=== PATIENT | female | born 2000 | race Hispanic/Latino ===

== ENCOUNTER 2023-05-24 09:36 | Emergency (ER) | payer OTHER ==
[2023-05-24] MEDS ORDERED: ACETAMINOPHEN 500 MG TAB ONE (10:13)
[2023-05-24 10:38] LABS: Specific Gravity > 1.030 (1.005-1.030); Urine Bacteria <20 /HPF (<20); Urine Bilirubin NEGATIVE (Negative); Urine Blood Negative (Negative); Urine Clarity Clear (Clear); Urine Color Light-Yellow (Yellow); Urine Glucose NEGATIVE (Negative); Urine Mucus Slight /HPF (None Seen); Urine Protein TRACE (Negative); Urine RBC <5 /HPF (None Seen); Urine Sperm Present (None Seen); Urine Urobilinogen Normal (Normal); Urine pH 5.5 (5.0-7.0)
--- NOTE | 2023-05-24 10:43 | EDPHYS ---
Physician Documentation [facility] Name: Ana Barroso Age: 22 yrs Sex: Female : 2000 Arrival Date: 05/24/2023 Time: 09:36 Bed 16 Private MD: ED Physician Steven Rosas HPI: 05/24 09:50 This 22 yrs old Female presents to ER via Ambulatory with complaints of Abdominal Pain, snw Low Back Pain, 19 weeks . 09:50 The patient presents with abdominal pain in the lower abdomen. Onset: The snw symptoms/episode began/occurred gradually. The symptoms do not radiate. Associated signs and symptoms: Pertinent negatives: nausea and vomiting, fever, vaginal bleeding, vaginal discharge. The symptoms are described as achy. Severity of pain: At its worst the pain was moderate. It is unknown whether or not the patient has had similar symptoms in the past. appt with Youth Services Librarian on Friday. AV SPECIALIST: 10:00 Verified kc6 Historical: - Allergies: 09:45 No Known Allergies; hb - Home Meds: 09:45 Metformin Oral [Active]; Aspirin Oral [Active]; Vitamin Oral [Active]; hb - PMHx: 09:45 DM; hb - PSHx: 09:45 None; hb - Immunization history:: Adult Immunizations up to date. - Social history:: Smoking status: Patient denies any tobacco usage or history of. ROS: 09:49 Constitutional: Negative for fever, chills, and weight loss, Eyes: Negative for injury, snw pain, redness, and discharge, ENT: Negative for injury, pain, and discharge, Neck: Negative for injury, pain, and swelling, Cardiovascular: Negative for chest pain, palpitations, and edema, Respiratory: Negative for shortness of breath, cough, wheezing, and pleuritic chest pain, : Negative for injury, bleeding, discharge, and swelling, MS/Extremity: Negative for injury and deformity, Skin: Negative for injury, rash, and discoloration, Neuro: Negative for headache, weakness, numbness, tingling, and seizure, Psych: Negative for depression, anxiety, suicide ideation, homicidal ideation, and hallucinations. 09:49 Abdomen/GI: Positive for abdominal pain, of the suprapubic area, right lower quadrant and left lower quadrant. 09:49 Back: Positive for pain at rest, pain with movement, mostly to left side . Exam: 09:48 Constitutional: This is a well developed, well nourished patient who is awake, alert, snw and in no acute distress. Head/Face: Normocephalic, atraumatic. Eyes: Pupils equal round and reactive to light, extra-ocular motions intact. Lids and lashes normal. Conjunctiva and sclera are non-icteric and not injected. Cornea within normal limits. Periorbital areas with no swelling, redness, or edema. ENT: Nares patent. No nasal discharge, no septal abnormalities noted. Tympanic membranes are normal and external auditory canals are clear. Oropharynx with no redness, swelling, or masses, exudates, or evidence of obstruction, uvula midline. Mucous membranes moist. Neck: Trachea midline, no thyromegaly or masses palpated, and no cervical lymphadenopathy. Supple, full range of motion without nuchal rigidity, or vertebral point tenderness. No Meningismus. Chest/axilla: Normal chest wall appearance and motion. Nontender with no deformity. No lesions are appreciated. Cardiovascular: Regular rate and rhythm with a normal S1 and S2. No gallops, murmurs, or rubs. Normal PMI, no JVD. No pulse deficits. Respiratory: Lungs have equal breath sounds bilaterally, clear to auscultation and percussion. No rales, rhonchi or wheezes noted. No increased work of breathing, no retractions or nasal flaring. Skin: Warm, dry with normal turgor. Normal color with no rashes, no lesions, and no evidence of cellulitis. MS/ Extremity: Pulses equal, no cyanosis. Neurovascular intact. Full, normal range of motion. Neuro: Awake and alert, GCS 15, oriented to person, place, time, and situation. Cranial nerves II-XII grossly intact. Motor strength 5/5 in all extremities. Sensory grossly intact. Cerebellar exam normal. Normal gait. Psych: Awake, alert, with orientation to person, place and time. Behavior, mood, and affect are within normal limits. 09:48 Abdomen/GI: Inspection: gravid appearance, is noted, Bowel sounds: normal, Palpation: mild abdominal tenderness, in the suprapubic area and left lower quadrant. 09:48 Back: CVA tenderness, is absent. Vital Signs: 10:00 BP 135 / 90; Pulse 91; Resp 18 S; Pulse Ox 98% on R/A; kc6 11:15 BP 118 / 73; Pulse 65; Resp 18 S; Pulse Ox 98% on R/A; kc6 MDM: 09:43 Patient medically screened. snw 09:51 Differential diagnosis: bowel obstruction, Pyelonephritis, urinary tract infection. snw Data reviewed: vital signs, nurses notes. 05/24 09:41 Order name: Urine W/Microscopic (UAM); Complete Time: 10:39 snw 05/24 10:41 Order name: Urine Culture snw 05/24 09:48 Order name: FHT's; Complete Time: 10:10 snw Administered Medications: 11:06 Not Given (Physician Discretion): Acetaminophen PO 1000 mg PO once kc6 11:14 Drug: Amoxicillin-Clavulanate PO 875 mg Route: PO; kc6 11:18 Follow up: Response: No adverse reaction kc6 Disposition: 12:25 I reviewed the patient's care provided by the Advanced Practice Provider and agree with jr11 the diagnosis and treatment plan. Disposition Summary: 05/24/23 10:43 Discharge Ordered Location: Home snw Condition: Stable snw Diagnosis - Unspecified infection of urinary tract in , second trimester snw Followup: snw - With: Emergency Department - When: As needed - Reason: Worsening of condition Followup: snw - With: Private Physician - When: 2 - 3 days - Reason: Recheck today's complaints, Continuance of care, Re-evaluation by your physician Discharge Instructions: - Discharge Summary Sheet snw - Second Trimester of snw - and Urinary Tract Infection snw - Hypertension During snw - Type 1 or Type 2 Diabetes Mellitus During , Self-Care snw - Managing Stress During snw Forms: - Medication Reconciliation Form snw - Thank You Letter snw - Antibiotic Education snw - Prescription Opioid Use snw - Patient Portal Instructions snw - Leadership Thank You Letter snw Prescriptions: - Augmentin 875-125 mg Oral Tablet - take 1 tablet by ORAL route every 12 hours for 10 days; 20 tablet; Refills: 0, snw Product Selection Permitted Signatures: Dispatcher [employer] Cinthya Zhao FNP-C LOAN INTERVIEWER-CsnNaima Rodriguez, RN RN Steven Rosas MD MD [email or web address] Tash Anthony, BEATRICE RN kc6
--- NOTE | 2023-05-24 10:43 | ER ---
Nurse's Notes [facility] Name: Ana Barroso Age: 22 yrs Sex: Female : 2000 Arrival Date: 05/24/2023 Time: 09:36 Bed 16 Private MD: Diagnosis: Unspecified infection of urinary tract in , second trimester Presentation: 05/24 09:44 Chief complaint: Intermittent lower abdominal pain x 2 weeks, low back pain since last hb night. Denies urinary s/s or vaginal bleeding. Coronavirus screen: At this time, the client does not indicate any symptoms associated with coronavirus-19. Ebola Screen: No symptoms or risks identified at this time. Initial Sepsis Screen: Does the patient meet any 2 criteria? No. Patient's initial sepsis screen is negative. Does the patient have a suspected source of infection? No. Patient's initial sepsis screen is negative. Risk Assessment: Do you want to hurt yourself or someone else? Patient reports no desire to harm self or others. Onset of symptoms was May 10, 2023. 09:44 Method Of Arrival: Ambulatory hb 09:44 Acuity: DELISA 3 hb [employer]SPORT[employer] DRIVER: 10:00 Verified kc6 Historical: - Allergies: 09:45 No Known Allergies; hb - Home Meds: 09:45 Metformin Oral [Active]; Aspirin Oral [Active]; Vitamin Oral [Active]; hb - PMHx: 09:45 DM; hb - PSHx: 09:45 None; hb - Immunization history:: Adult Immunizations up to date. - Social history:: Smoking status: Patient denies any tobacco usage or history of. Screenin:00 [facility] ED Fall Risk Assessment (Adult) History of falling in the last 3 months, kc6 including since admission No falls in past 3 months (0 pts) Confusion or Disorientation No (0 pts) Intoxicated or Sedated No (0 pts) Impaired Gait No (0 pts) Mobility Assist Device Used No (0 pt) Altered Elimination No (0 pt) Score/Fall Risk Level 0 - 2 = Low Risk. Abuse screen: Denies threats or abuse. Denies injuries from another. Nutritional screening: No deficits noted. Tuberculosis screening: No symptoms or risk factors identified. Assessment: 10:00 General: Appears in no apparent distress. uncomfortable, Behavior is calm, cooperative, kc6 appropriate for age. Pain: Complains of pain in umbilical area and suprapubic area. Neuro: Level of Consciousness is awake, alert, obeys commands, Oriented to person, place, time, situation, Appropriate for age. Cardiovascular: Capillary refill < 3 seconds. Respiratory: Airway is patent Trachea midline Respiratory effort is even, unlabored, Respiratory pattern is regular, symmetrical. GI: No signs and/or symptoms were reported involving the gastrointestinal system. Abdomen is round non-distended, Bowel sounds present X 4 quads. Abd is soft X 4 quads Abdomen is tender to palpation in umbilical area and suprapubic area Patient currently denies diarrhea, nausea, vomiting. : No signs and/or symptoms were reported regarding the genitourinary system. Denies vaginal bleeding. EENT: No signs and/or symptoms were reported regarding the EENT system. Derm: No signs and/or symptoms reported regarding the dermatologic system. Skin is intact, is healthy with good turgor, Skin is pink, warm \T\ dry. Musculoskeletal: No signs and/or symptoms reported regarding the musculoskeletal system. Circulation, motion, and sensation intact. Capillary refill < 3 seconds, Range of motion: intact in all extremities. 10:15 Reassessment: FHT = 140bpm. kc6 11:00 Reassessment: Patient appears in no apparent distress at this time. No changes from kc6 previously documented assessment. Patient and/or family updated on plan of care and expected duration. Pain level reassessed. Patient is alert, oriented x 3, equal unlabored respirations, skin warm/dry/pink. Vital Signs: 10:00 BP 135 / 90; Pulse 91; Resp 18 S; Pulse Ox 98% on R/A; kc6 11:15 BP 118 / 73; Pulse 65; Resp 18 S; Pulse Ox 98% on R/A; kc6 ED Course: 09:37 Patient arrived in ED. im 09:43 Cinthya Cool FNP-C is PHCP. snw 09:43 Steven Rosas MD is Attending Physician. snw 09:45 Triage completed. hb 09:48 Arm band placed on. hb 09:59 Tash Anthony, BEATRICE is Primary Nurse. kc6 09:59 Patient has correct armband on for positive identification. Bed in low position. Call mm9 light in reach. Side rails up X 1. Adult w/ patient. Pulse ox on. NIBP on. 09:59 Urine W/Microscopic (UAM) Sent. mm9 09:59 Urine collected: clean catch specimen, erma colored. mm9 11:17 No provider procedures requiring assistance completed. Patient did not have IV access kc6 during this emergency room visit. Administered Medications: 11:06 Not Given (Physician Discretion): Acetaminophen PO 1000 mg PO once kc6 11:14 Drug: Amoxicillin-Clavulanate PO 875 mg Route: PO; kc6 11:18 Follow up: Response: No adverse reaction kc6 Medication: 11:18 VIS not applicable for this client. kc6 Outcome: 10:43 Discharge ordered by . snw 11:17 Discharged to home ambulatory, with significant other. kc6 11:17 Condition: stable 11:17 Discharge instructions given to patient, Instructed on discharge instructions, follow up and referral plans. medication usage, Demonstrated understanding of instructions, follow-up care, medications, Prescriptions given X 1. 11:21 Patient left the ED. kc6 Signatures: Cinthya Cool, TWISTING FRAME FIXER-C TWISTING FRAME FIXER-Csnw Naima Liao, RN RN Tash Staton RN RN Stacy Angulo mm Nahomy Menon
[2023-05-24] MEDS ORDERED: AMOX/K CLAV 875 MG TAB ONE (11:19)
[2023-05-24 11:26] VITALS: O2SAT 98
[2023-05-24 11:27] VITALS: BP 118/73
== END 2023-05-24 11:21 | disposition home or self-care (01) ==
LOC: ER 09:36
DX: O23.42 Unspecified infection of urinary tract in pregnancy, second trimester (principal); N39.0 Urinary tract infection, site not specified; R10.9 Unspecified abdominal pain; M54.50 Low back pain, unspecified
CPT/HCPCS: 81001; 87086; 87088; 99284

== ENCOUNTER 2023-06-28 03:18 | Emergency (ER) | payer OTHER ==
--- OUTSIDE RECORDS SUMMARY | 2023-06-28 03:24 | XMS REPORT | Continuity of Care Document ---
:2000 Author Organization [facility] t Address [address] [place] [address] [place] [id number] Care Team Providers Name Role Phone Anisa Alfaro Primary Care Physician [phone] Doctor Unassigned, [place] Attending Clinician Unavailable Ultrasound, Ang-Mfm Attending Clinician Unavailable Sally Paz CNM Attending Clinician Margo Carrera MD Attending Clinician MARGO CARRERA Attending Clinician Unavailable MARGO CARRERA Attending Clinician Unavailable SALLY PAZ Attending Clinician Unavailable Anisa Alfaro Attending Clinician [phone] Dano Triana Attending Clinician MALISSA MACEDO Attending Clinician Unavailable Risk, Ddp-Ebsxv-Mh/High Attending Clinician Unavailable Malissa Martini Attending Clinician JORDI BONE Attending Clinician Unavailable Jordi Bone MD Attending Clinician [phone] ANISA NEVILLE Attending Clinician Unavailable Provider, Michael-Rmchryder Temp Attending Clinician Unavailable Visit, Ang-Rmchp Nurse Attending Clinician Unavailable Lab, Ang-Rmchryder Attending Clinician Unavailable Payers Payer Name Policy Type Policy Number Effective Date Expiration Date S livier [facility] [id number] 2023 00:00:00 MEDICAID OF [place] [id number] 2023 2023 00:00:00 00:00:00 Problems Condition Condition Condition Status Onset Resolution Last Treating Co mments Source Name Details Category Date Date Treatment Clinician Date Uterine Uterine Disease Active Univers leiomyoma, leiomyoma, 05-01 it y [place]spec[place] 00 Me dical Branch Disease Active Univers growth growth 05-01 ity of restrictio restrictio [place] 00 Medical antepartum antepartum Br anch 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 Papanicola Papanicola See ou smear ou smear scanned of cervix of cervix records 02-27-23 Pregestati Pregestati Disease Active Overview : Univers onal onal 03-14 Formattin ity of diabetes diabetes 00:00: g of this [place] as mellitus, mellitus, 00 note Medi [place] modified modified might be Bran ch White White different class B class B from the original. Failed 1 hr gtt GBS (group GBS (group Disease Active U nivers B B 03-14 ity of streptococ streptococ [place] cus[place] UTI cus) UTI 00 Medica l complicati complicati Br anch ng ng Supervisio Supervisio Disease Active U nivers n of n of 03-12 [place] high[place]risk [place] [facility] Branch Obesity in Obesity in Disease Active U nivers 03-12 ity of 00:00: [place] [id number] Medical Branch Allergies, Adverse Reactions, Alerts Allergy Allergy Status Severity Reaction(s) Onset Inactive Treating Comm ents Source Name Type Date Date Clinician NO KNOWN Drug Active Univers ALLERGIE Class ity of S [facility] [place] [facility] Social History Social Habit Start Date Stop Date Quantity Comments Source ASSERTION 2023-01-21 University of 00:00:00 [facility] [place] [facility] Gender identity Universit y of [facility] [place] [facility] Sexual orientation Univer sity of [facility] [place] [facility] Alcohol intake 2023-05-28 2023-05-28 Ex-drinker [facility] 00:00:00 00:00:00 (finding) [facility] [place] [facility] History of Social 2023-05-28 2023-05-28 Univers ity of function 00:00:00 00:00:00 [facility] [place] [facility] Tobacco use and 2023-03-12 2023-03-12 Smokeless Universit y of exposure 00:00:00 00:00:00 tobacco non-user [facility] [place] [facility] Sex Assigned At [birth year] Universit y of 00:00:00 00:00:00 [facility] [place] [facility] Smoking Status Start Date Stop Date Source Tobacco smoking consumption Univ [facility] Never smoked tobacco [facility] Medications Ordered Filled Start Stop Current Ordering Indication Dosage Frequency Signature Comments Components Source Medication Medication Date Date Medication? Clinician (SIG) Name Name proMETHazin Yes [id number] 12.5mg Take 1 Univers e 12.5 mg 8-03 tablet by ity o f tablet 00:00: mouth [place] 00 every 6 Medical (six) Branch hours as needed for Nausea and Vomiting (N/V) (Pt is ) for up to 60 doses. proMETHazin Yes [id number] 12.5mg Take 1 Univers e 12.5 mg 8-03 tablet by ity o f tablet 00:00: mouth [place] 00 every 6 Medical (six) Branch hours as needed for Nausea and Vomiting (N/V) (Pt is ) for up to 60 doses. proMETHazin Yes [id number] 12.5mg Take 1 Univers e 12.5 mg 8-03 tablet by ity o f tablet 00:00: mouth [place] 00 every 6 Medical (six) Branch hours as needed for Nausea and Vomiting (N/V) (Pt is ) for up to 60 doses. proMETHazin Yes [id number] 12.5mg Take 1 Univers e 12.5 mg 8-03 tablet by ity o f tablet 00:00: mouth [place] 00 every 6 Medical (six) Branch hours as needed for Nausea and Vomiting (N/V) (Pt is ) for up to 60 doses. proMETHazin 2022- Yes [id number] 12.5mg Take 1 Univers e 12.5 mg 8-03 tablet by ity o f tablet 00:00: mouth [place] 00 every 6 Medical (six) Branch hours as needed for Nausea and Vomiting (N/V) (Pt is ) for up to 60 doses. proMETHazin 2023-0 Yes [id number] 12.5mg Take 1 Univers e 12.5 mg 8-03 tablet by ity o f tablet 00:00: mouth [place] 00 every 6 Medical (six) Branch hours as needed for Nausea and Vomiting (N/V) (Pt is ) for up to 60 doses. proMETHazin 2023-0 Yes [id number] 12.5mg Take 1 Univers e 12.5 mg 8-03 tablet by ity o f tablet 00:00: mouth [place] 00 every 6 Medical (six) Branch hours as needed for Nausea and Vomiting (N/V) (Pt is ) for up to 60 doses. proMETHazin 2023-0 Yes [id number] 12.5mg Take 1 Univers e 12.5 mg 8-03 tablet by ity o f tablet 00:00: mouth [place] 00 every 6 Medical (six) Branch hours as needed for Nausea and Vomiting (N/V) (Pt is ) for up to 60 doses. proMETHazin 2023-0 Yes [id number] 12.5mg Take 1 Univers e 12.5 mg 8-03 tablet by ity o f tablet 00:00: mouth [place] 00 every 6 Medical (six) Branch hours as needed for Nausea and Vomiting (N/V) (Pt is ) for up to 60 doses. proMETHazin 2023-0 Yes [id number] 12.5mg Take 1 Univers e 12.5 mg 8-03 tablet by ity o f tablet 00:00: mouth [place] 00 every 6 Medical (six) Branch hours as needed for Nausea and Vomiting (N/V) (Pt is ) for up to 60 doses. proMETHazin 2023-0 Yes [id number] 12.5mg Take 1 Univers e 12.5 mg 8-03 tablet by ity o f tablet 00:00: mouth [place] 00 every 6 Medical (six) Branch hours as needed for Nausea and Vomiting (N/V) (Pt is ) for up to 60 doses. proMETHazin 2023-0 Yes [id number] 12.5mg Take 1 Univers e 12.5 mg 8-03 tablet by ity o f tablet 00:00: mouth [place] 00 every 6 Medical (six) Branch hours as needed for Nausea and Vomiting (N/V) (Pt is ) for up to 60 doses. aspirin 81 2023- Yes [id number] 81mg Take 1 Univers mg EC 05-08 tablet by ity of tablet 00:00: 05:59 mouth [place] 00 :00 daily for Medical 150 days. Branch aspirin 81 2023- Yes [id number] 81mg Take 1 Univers mg EC 05-08 tablet by ity of tablet 00:00: 05:59 mouth [place] 00 :00 daily for Medical 150 days. Branch aspirin 81 2023- Yes [id number] 81mg Take 1 Univers mg EC 05-08 tablet by ity of tablet 00:00: 05:59 mouth [place] 00 :00 daily for Medical 150 days. Branch aspirin 81 2023- Yes [id number] 81mg Take 1 Univers mg EC 05-08 tablet by ity of tablet 00:00: 05:59 mouth [place] 00 :00 daily for Medical 150 days. Branch aspirin 81 2023- Yes [id number] 81mg Take 1 Univers mg EC 05-08 tablet by ity of tablet 00:00: 05:59 mouth [place] 00 :00 daily for Medical 150 days. Branch aspirin 81 2023- Yes [id number] 81mg Take 1 Univers mg EC 05-08 tablet by ity of tablet 00:00: 05:59 mouth [place] 00 :00 daily for Medical 150 days. Branch aspirin 81 2023- Yes [id number] 81mg Take 1 Univers mg EC 05-08 tablet by ity of tablet 00:00: 05:59 mouth [place] 00 :00 daily for Medical 150 days. Branch aspirin 81 2023- Yes [id number] 81mg Take 1 Univers mg EC 05-08 tablet by ity of tablet 00:00: 05:59 mouth [place] 00 :00 daily for Medical 150 days. Branch aspirin 81 2023- Yes [id number] 81mg Take 1 Univers mg EC 05-08 tablet by ity of tablet 00:00: 05:59 mouth [place] 00 :00 daily for Medical 150 days. Branch aspirin 81 2023- Yes [id number] 81mg Take 1 Univers mg EC 05-08 tablet by ity of tablet 00:00: 05:59 mouth [place] 00 :00 daily for Medical 150 days. Branch aspirin 81 2023- Yes [id number] 81mg Take 1 Univers mg EC 05-08 tablet by ity of tablet 00:00: 05:59 mouth [place] 00 :00 daily for Medical 150 days. Branch aspirin 81 2023- Yes [id number] 81mg Take 1 Univers mg EC 05-08 tablet by ity of tablet 00:00: 05:59 mouth [place] 00 :00 daily for Medical 150 days. Branch metFORMIN 2022- Yes [id number] 500mg Take 1 Univers 500 mg 7-13 10-12 tablet by ity of tablet 00:00: 04:59 [place] :00 evening Medical meal for Branch 90 days. metFORMIN 2022- Yes [id number] 500mg Take 1 Univers 500 mg 7-13 10-12 tablet by ity of tablet 00:00: 04:59 [place] :00 evening Medical meal for Branch 90 days. metFORMIN 2022- Yes [id number] 500mg Take 1 Univers 500 mg 7-13 10-12 tablet by ity of tablet 00:00: 04:59 [place] :00 evening Medical meal for Branch 90 days. metFORMIN 2022- Yes [id number] 500mg Take 1 Univers 500 mg 7-13 10-12 tablet by ity of tablet 00:00: 04:59 [place] :00 evening Medical meal for Branch 90 days. metFORMIN 2022- Yes [id number] 500mg Take 1 Univers 500 mg 7-13 10-12 tablet by ity of tablet 00:00: 04:59 [place] :00 evening Medical meal for Branch 90 days. metFORMIN 2022- Yes [id number] 500mg Take 1 Univers 500 mg 7-13 10-12 tablet by ity of tablet 00:00: 04:59 [place] :00 evening Medical meal for Branch 90 days. metFORMIN 2022- Yes [id number] 500mg Take 1 Univers 500 mg 7-13 10-12 tablet by ity of tablet 00:00: 04:59 [place] 00 :00 evening Medical meal for Branch 90 days. metFORMIN 2022- Yes [id number] 500mg Take 1 Univers 500 mg 7-13 10-12 tablet by ity of tablet 00:00: 04:59 [place] :00 evening Medical meal for Branch 90 days. metFORMIN 2022- Yes [id number] 500mg Take 1 Univers 500 mg 7-13 10-12 tablet by ity of tablet 00:00: 04:59 [place] :00 evening Medical meal for Branch 90 days. metFORMIN 2022- Yes [id number] 500mg Take 1 Univers 500 mg 7-13 10-12 tablet by ity of tablet 00:00: 04:59 [place] :00 evening Medical meal for Branch 90 days. metFORMIN 2022- Yes [id number] 500mg Take 1 Univers 500 mg 7-13 10-12 tablet by ity of tablet 00:00: 04:59 [place] :00 evening Medical meal for Branch 90 days. metFORMIN 2022- Yes [id number] 500mg Take 1 Univers 500 mg 7-13 10-12 tablet by ity of tablet 00:00: 04:59 [place] :00 evening Medical meal for Branch 90 days. metFORMIN 2022- Yes [id number] 500mg Take 1 Univers 500 mg 7-13 10-12 tablet by ity of tablet 00:00: 04:59 [place] 00 :00 evening Medical meal for Branch 90 days. metFORMIN 2022- Yes [id number] 500mg Take 1 Univers 500 mg 7-13 10-12 tablet by ity of tablet 00:00: 04:59 [place] :00 evening Medical meal for Branch 90 days. metFORMIN 2022- Yes [id number] 500mg Take 1 Univers 500 mg 7-13 10-12 tablet by ity of tablet 00:00: 04:59 [place] 00 :00 evening Medical meal for Branch 90 days. metFORMIN 2022- Yes [id number] 500mg Take 1 Univers 500 mg 7-13 10-12 tablet by ity of tablet 00:00: 04:59 [place] 00 :00 evening Medical meal for Branch 90 days. metFORMIN 2022-0 2022- Yes [id number] 500mg Take 1 Univers 500 mg 7-13 10-12 tablet by ity of tablet 00:00: 04:59 [place] 00 :00 evening Medical meal for Branch 90 days. metFORMIN 2022-0 2022- Yes [id number] 500mg Take 1 Univers 500 mg 7-13 10-12 tablet by ity of tablet 00:00: 04:59 [place] 00 :00 evening Medical meal for Branch 90 days. ampicillin 2022-0 2022- Yes [id number] 500mg Take 1 Univers 500 mg 7-12 07-23 capsule by ity of capsule 00:00: 04:59 mouth 4 [place] 00 :00 ([facility]) Medical times Branch daily for 10 days. ampicillin 2022-0 2022- Yes [id number] 500mg Take 1 Univers 500 mg 7-12 07-23 capsule by ity of capsule 00:00: 04:59 mouth 4 [place] 00 :00 ([facility]) Medical times Branch daily for 10 days. ampicillin 0 2022- Yes [id number] 500mg Take 1 Univers 500 mg 7-12 07-23 capsule by ity of capsule 00:00: 04:59 mouth 4 [place] 00 :00 ([facility]) Medical times Branch daily for 10 days. ampicillin 2022-0 2022- Yes [id number] 500mg Take 1 Univers 500 mg 7-12 07-23 capsule by ity of capsule 00:00: 04:59 mouth 4 [place] 00 :00 ([facility]) Medical times Branch daily for 10 days. ampicillin 2022-0 2022- Yes [id number] 500mg Take 1 Univers 500 mg 7-12 07-23 capsule by ity of capsule 00:00: 04:59 mouth 4 [place] 00 :00 ([facility]) Medical times Branch daily for 10 days. ampicillin 2022-0 2022- Yes [id number] 500mg Take 1 Univers 500 mg 7-12 07-23 capsule by ity of capsule 00:00: 04:59 mouth 4 [place] 00 :00 ([facility]) Medical times Branch daily for 10 days. PNV 67-iron 2022-0 Yes [id number] 1{capsu Take 1 Univers ps-folate 6-26 le} capsule by ity of no.1-dha 00:00: mouth [place] (VITAFOL 00 daily. Medical ULTRA) 29 Branch mg iron- 1 mg-200 mg Cap PNV 67-iron 2023-0 Yes [id number] 1{capsu Take 1 Univers ps-folate 6-26 le} capsule by ity of no.1-dha 00:00: mouth [place] (VITAFOL 00 daily. Medical ULTRA) 29 Branch mg iron- 1 mg-200 mg Cap PNV 67-iron 2023-0 Yes [id number] 1{capsu Take 1 Univers ps-folate 6-26 le} capsule by ity of no.1-dha 00:00: mouth [place] (VITAFOL 00 daily. Medical ULTRA) 29 Branch mg iron- 1 mg-200 mg Cap PNV 67-iron 2023-0 Yes [id number] 1{capsu Take 1 Univers ps-folate 6-26 le} capsule by ity of no.1-dha 00:00: mouth [place] (VITAFOL 00 daily. Medical ULTRA) 29 Branch mg iron- 1 mg-200 mg Cap PNV 67-iron 2023-0 Yes [id number] 1{capsu Take 1 Univers ps-folate 6-26 le} capsule by ity of no.1-dha 00:00: mouth [place] (VITAFOL 00 daily. Medical ULTRA) 29 Branch mg iron- 1 mg-200 mg Cap PNV 67-iron 2023-0 Yes [id number] 1{capsu Take 1 Univers ps-folate 6-26 le} capsule by ity of no.1-dha 00:00: mouth [place] (VITAFOL 00 daily. Medical ULTRA) 29 Branch mg iron- 1 mg-200 mg Cap PNV 67-iron 2023-0 Yes [id number] 1{capsu Take 1 Univers ps-folate 6-26 le} capsule by ity of no.1-dha 00:00: mouth [place] (VITAFOL 00 daily. Medical ULTRA) 29 Branch mg iron- 1 mg-200 mg Cap PNV 67-iron 2023-0 Yes [id number] 1{capsu Take 1 Univers ps-folate 6-26 le} capsule by ity of no.1-dha 00:00: mouth [place] (VITAFOL 00 daily. Medical ULTRA) 29 Branch mg iron- 1 mg-200 mg Cap PNV 67-iron 2023-0 Yes [id number] 1{capsu Take 1 Univers ps-folate 6-26 le} capsule by ity of no.1-dha 00:00: mouth [place] (VITAFOL 00 daily. Medical ULTRA) 29 Branch mg iron- 1 mg-200 mg Cap PNV 67-iron 2023-0 Yes [id number] 1{capsu Take 1 Univers ps-folate 6-26 le} capsule by ity of no.1-dha 00:00: mouth [place] (VITAFOL 00 daily. Medical ULTRA) 29 Branch mg iron- 1 mg-200 mg Cap PNV 67-iron 2023-0 Yes [id number] 1{capsu Take 1 Univers ps-folate 6-26 le} capsule by ity of no.1-dha 00:00: mouth [place] (VITAFOL 00 daily. Medical ULTRA) 29 Branch mg iron- 1 mg-200 mg Cap PNV 67-iron 2023-0 Yes [id number] 1{capsu Take 1 Univers ps-folate 6-26 le} capsule by ity of no.1-dha 00:00: mouth [place] (VITAFOL 00 daily. Medical ULTRA) 29 Branch mg iron- 1 mg-200 mg Cap PNV 67-iron 2023-0 Yes [id number] 1{capsu Take 1 Univers ps-folate 6-26 le} capsule by ity of no.1-dha 00:00: mouth [place] (VITAFOL 00 daily. Medical ULTRA) 29 Branch mg iron- 1 mg-200 mg Cap PNV 67-iron 2023-0 Yes [id number] 1{capsu Take 1 Univers ps-folate 6-26 le} capsule by ity of no.1-dha 00:00: mouth [place] (VITAFOL 00 daily. Medical ULTRA) 29 Branch mg iron- 1 mg-200 mg Cap PNV 67-iron 2023-0 Yes [id number] 1{capsu Take 1 Univers ps-folate 6-26 le} capsule by ity of no.1-dha 00:00: mouth [place] (VITAFOL 00 daily. Medical ULTRA) 29 Branch mg iron- 1 mg-200 mg Cap PNV 67-iron 2023-0 Yes [id number] 1{capsu Take 1 Univers ps-folate 6-26 le} capsule by ity of no.1-dha 00:00: mouth [place] (VITAFOL 00 daily. Medical ULTRA) 29 Branch mg iron- 1 mg-200 mg Cap PNV 67-iron 2023-0 Yes [id number] 1{capsu Take 1 Univers ps-folate 6-26 le} capsule by ity of no.1-dha 00:00: mouth [place] (VITAFOL 00 daily. Medical ULTRA) 29 Branch mg iron- 1 mg-200 mg Cap PNV 67-iron 2023-0 Yes [id number] 1{capsu Take 1 Univers ps-folate 6-26 le} capsule by ity of no.1-dha 00:00: mouth [place] (VITAFOL 00 daily. Medical ULTRA) 29 Branch mg iron- 1 mg-200 mg Cap PNV 67-iron 2023-0 Yes [id number] 1{capsu Take 1 Univers ps-folate 6-26 le} capsule by ity of no.1-dha 00:00: mouth [place] (VITAFOL 00 daily. Medical ULTRA) 29 Branch mg iron- 1 mg-200 mg Cap PNV 67-iron 2023-0 Yes [id number] 1{capsu Take 1 Univers ps-folate 6-26 le} capsule by ity of no.1-dha 00:00: mouth [place] (VITAFOL 00 daily. Medical ULTRA) 29 Branch mg iron- 1 mg-200 mg Cap PNV 67-iron 2023-0 Yes [id number] 1{capsu Take 1 Univers ps-folate 6-26 le} capsule by ity of no.1-dha 00:00: mouth [place] (VITAFOL 00 daily. Medical ULTRA) 29 Branch mg iron- 1 mg-200 mg Cap PNV 67-iron 2023-0 Yes [id number] 1{capsu Take 1 Univers ps-folate 6-26 le} capsule by ity of no.1-dha 00:00: mouth [place] (VITAFOL 00 daily. Medical ULTRA) 29 Branch mg iron- 1 mg-200 mg Cap PNV 67-iron 2023-0 Yes [id number] 1{capsu Take 1 Univers ps-folate 6-26 le} capsule by ity of no.1-dha 00:00: mouth [place] (VITAFOL 00 daily. Medical ULTRA) 29 Branch mg iron- 1 mg-200 mg Cap PNV 67-iron 2023-0 Yes [id number] 1{capsu Take 1 Univers ps-folate 6-26 le} capsule by ity of no.1-dha 00:00: mouth [place] (VITAFOL 00 daily. Medical ULTRA) 29 Branch mg iron- 1 mg-200 mg Cap PNV 67-iron 0 Yes [id number] 1{capsu Take 1 Univers ps-folate 03-31 le} capsule by ity of no.1-dha 00:00: mouth [place] (VITAFOL daily. Medical ULTRA) 29 Branch mg iron- 1 mg-200 mg Cap lancets 0 Yes [id number] Check Unive rs (FREESTYLE 6-09 glucose 4x ity of LANCETS) 28 00:00: daily [facility] Medical Branch Blood-Gluco 0 Yes [id number] Check U nivers se Meter 6-09 blood ity of (FREESTYLE 00:00: glucose 4x [place] LITE METER) 00 daily Medical Kit Branch blood sugar Yes [id number] Check U nivers diagnostic 6-09 blood ity of (FREESTYLE 00:00: glucose 4x [place] LITE 00 daily Medical STRIPS) Branch strip lancets Yes [id number] Check Unive rs (FREESTYLE 6-09 glucose 4x ity of LANCETS) 28 00:00: daily [facility] Medical Branch Blood-Gluco 0 Yes [id number] Check U nivers se Meter 6-09 blood ity of (FREESTYLE 00:00: glucose 4x [place] LITE METER) 00 daily Medical Kit Branch blood sugar 0 Yes [id number] Check U nivers diagnostic 6-09 blood ity of (FREESTYLE 00:00: glucose 4x [place] LITE 00 daily Medical STRIPS) Branch strip lancets Yes [id number] Check Unive rs (FREESTYLE 6-09 glucose 4x ity of LANCETS) 28 00:00: daily [facility] Medical Branch Blood-Gluco Yes [id number] Check U nivers se Meter 6-09 blood ity of (FREESTYLE 00:00: glucose 4x [place] LITE METER) 00 daily Medical Kit Branch blood sugar Yes [id number] Check U nivers diagnostic 6-09 blood ity of (FREESTYLE 00:00: glucose 4x [place] LITE 00 daily Medical STRIPS) Branch strip lancets Yes [id number] Check Unive rs (FREESTYLE 6-09 glucose 4x ity of LANCETS) 28 00:00: daily [facility] Medical Branch Blood-Gluco 2022-0 Yes [id number] Check U nivers se Meter 6-09 blood ity of (FREESTYLE 00:00: glucose 4x [place] LITE METER) 00 daily Medical Kit Branch blood sugar 0 Yes [id number] Check U nivers diagnostic 6-09 blood ity of (FREESTYLE 00:00: glucose 4x [place] LITE 00 daily Medical STRIPS) Branch strip lancets 0 Yes [id number] Check Unive rs (FREESTYLE 6-09 glucose 4x ity of LANCETS) 28 00:00: daily [facility] Medical Branch Blood-Gluco 0 Yes [id number] Check U nivers se Meter 6-09 blood ity of (FREESTYLE 00:00: glucose 4x [place] LITE METER) 00 daily Medical Kit Branch blood sugar 0 Yes [id number] Check U nivers diagnostic 6-09 blood ity of (FREESTYLE 00:00: glucose 4x [place] LITE 00 daily Medical STRIPS) Branch strip lancets 0 Yes [id number] Check Unive rs (FREESTYLE 6-09 glucose 4x ity of LANCETS) 28 00:00: daily [facility] Medical Branch Blood-Gluco 2022-0 Yes [id number] Check U nivers se Meter 6-09 blood ity of (FREESTYLE 00:00: glucose 4x [place] LITE METER) 00 daily Medical Kit Branch blood sugar 2022-0 Yes [id number] Check U nivers diagnostic 6-09 blood ity of (FREESTYLE 00:00: glucose 4x [place] LITE 00 daily Medical STRIPS) Branch strip lancets 2022-0 Yes [id number] Check Unive rs (FREESTYLE 6-09 glucose 4x ity of LANCETS) 28 00:00: daily [facility] Medical Branch Blood-Gluco 2022-0 Yes [id number] Check U nivers se Meter 6-09 blood ity of (FREESTYLE 00:00: glucose 4x [place] LITE METER) 00 daily Medical Kit Branch blood sugar 2022-0 Yes [id number] Check U nivers diagnostic 6-09 blood ity of (FREESTYLE 00:00: glucose 4x [place] LITE 00 daily Medical STRIPS) Branch strip lancets 2022-0 Yes [id number] Check Unive rs (FREESTYLE 6-09 glucose 4x ity of LANCETS) 28 00:00: daily [facility] Medical Branch Blood-Gluco 2022-0 Yes [id number] Check U nivers se Meter 6-09 blood ity of (FREESTYLE 00:00: glucose 4x [place] LITE METER) 00 daily Medical Kit Branch blood sugar 2022-0 Yes [id number] Check U nivers diagnostic 6-09 blood ity of (FREESTYLE 00:00: glucose 4x [place] LITE 00 daily Medical STRIPS) Branch strip lancets 0 Yes [id number] Check Unive rs (FREESTYLE 6-09 glucose 4x ity of LANCETS) 28 00:00: daily [facility] Medical Branch Blood-Gluco 2022-0 Yes [id number] Check U nivers se Meter 6-09 blood ity of (FREESTYLE 00:00: glucose 4x [place] LITE METER) 00 daily Medical Kit Branch blood sugar 2022-0 Yes [id number] Check U nivers diagnostic 6-09 blood ity of (FREESTYLE 00:00: glucose 4x [place] LITE 00 daily Medical STRIPS) Branch strip lancets 2022-0 Yes [id number] Check Unive rs (FREESTYLE 6-09 glucose 4x ity of LANCETS) 28 00:00: daily [facility] Medical Branch Blood-Gluco 2022-0 Yes [id number] Check U nivers se Meter 6-09 blood ity of (FREESTYLE 00:00: glucose 4x [place] LITE METER) 00 daily Medical Kit Branch blood sugar 2022-0 Yes [id number] Check U nivers diagnostic 6-09 blood ity of (FREESTYLE 00:00: glucose 4x [place] LITE 00 daily Medical STRIPS) Branch strip lancets 2022-0 Yes [id number] Check Unive rs (FREESTYLE 6-09 glucose 4x ity of LANCETS) 28 00:00: daily [facility] Medical Branch Blood-Gluco 2022-0 Yes [id number] Check U nivers se Meter 6-09 blood ity of (FREESTYLE 00:00: glucose 4x [place] LITE METER) 00 daily Medical Kit Branch blood sugar Yes [id number] Check U nivers diagnostic 6-09 blood ity of (FREESTYLE 00:00: glucose 4x [place] LITE 00 daily Medical STRIPS) Branch strip lancets Yes [id number] Check Unive rs (FREESTYLE 6-09 glucose 4x ity of LANCETS) 28 00:00: daily [facility] Medical Branch Blood-Gluco 0 Yes [id number] Check U nivers se Meter 6-09 blood ity of (FREESTYLE 00:00: glucose 4x [place] LITE METER) 00 daily Medical Kit Branch blood sugar Yes [id number] Check U nivers diagnostic 6-09 blood ity of (FREESTYLE 00:00: glucose 4x [place] LITE 00 daily Medical STRIPS) Branch strip lancets Yes [id number] Check Unive rs (FREESTYLE 6-09 glucose 4x ity of LANCETS) 28 00:00: daily [facility] Medical Branch Blood-Gluco 0 Yes [id number] Check U nivers se Meter 6-09 blood ity of (FREESTYLE 00:00: glucose 4x [place] LITE METER) 00 daily Medical Kit Branch blood sugar Yes [id number] Check U nivers diagnostic 6-09 blood ity of (FREESTYLE 00:00: glucose 4x [place] LITE 00 daily Medical STRIPS) Branch strip lancets Yes [id number] Check Unive rs (FREESTYLE 6-09 glucose 4x ity of LANCETS) 28 00:00: daily [facility] [facility] Blood-Gluco 0 Yes [id number] Check U nivers se Meter 6-09 blood ity of (FREESTYLE 00:00: glucose 4x [place] LITE METER) 00 daily Medical Kit Branch blood sugar 0 Yes [id number] Check U nivers diagnostic 6-09 blood ity of (FREESTYLE 00:00: glucose 4x [place] LITE 00 daily Medical STRIPS) Branch strip lancets 0 Yes [id number] Check Unive rs (FREESTYLE 6-09 glucose 4x ity of LANCETS) 28 00:00: daily [facility] Blood-Gluco 0 Yes [id number] Check U nivers se Meter 6-09 blood ity of (FREESTYLE 00:00: glucose 4x [place] LITE METER) 00 daily Medical Kit Branch blood sugar 0 Yes [id number] Check U nivers diagnostic 6-09 blood ity of (FREESTYLE 00:00: glucose 4x [place] LITE 00 daily Medical STRIPS) Branch strip lancets 0 Yes [id number] Check Unive rs (FREESTYLE 6-09 glucose 4x ity of LANCETS) 28 00:00: daily [facility] Blood-Gluco 0 Yes [id number] Check U nivers se Meter 6-09 blood ity of (FREESTYLE 00:00: glucose 4x [place] LITE METER) 00 daily Medical Kit Branch blood sugar 0 Yes [id number] Check U nivers diagnostic 6-09 blood ity of (FREESTYLE 00:00: glucose 4x [place] LITE daily Medical STRIPS) Branch strip lancets 0 Yes [id number] Check Unive rs (FREESTYLE 6-09 glucose 4x ity of LANCETS) 28 00:00: daily [facility] Blood-Gluco 0 Yes [id number] Check U nivers se Meter 6-09 blood ity of (FREESTYLE 00:00: glucose 4x [place] LITE METER) 00 daily Medical Kit Branch blood sugar 0 Yes [id number] Check U nivers diagnostic 6-09 blood ity of (FREESTYLE 00:00: glucose 4x [place] LITE 00 daily Medical STRIPS) Branch strip lancets 0 Yes [id number] Check Unive rs (FREESTYLE 6-09 glucose 4x ity of LANCETS) 28 00:00: daily [facility] Blood-Gluco 0 Yes [id number] Check U nivers se Meter 6-09 blood ity of (FREESTYLE 00:00: glucose 4x [place] LITE METER) 00 daily Medical Kit Branch blood sugar 0 Yes [id number] Check U nivers diagnostic 6-09 blood ity of (FREESTYLE 00:00: glucose 4x [place] LITE 00 daily Medical STRIPS) Branch strip lancets 0 Yes [id number] Check Unive rs (FREESTYLE 6-09 glucose 4x ity of LANCETS) 28 00:00: daily [facility] Blood-Gluco 0 Yes [id number] Check U nivers se Meter 6-09 blood ity of (FREESTYLE 00:00: glucose 4x [place] LITE METER) 00 daily Medical Kit Branch blood sugar 0 Yes [id number] Check U nivers diagnostic 6-09 blood ity of (FREESTYLE 00:00: glucose 4x [place] LITE 00 daily Medical STRIPS) Branch strip lancets Yes [id number] Check Unive rs (FREESTYLE 6-09 glucose 4x ity of LANCETS) 28 00:00: daily [facility] Blood-Gluco 0 Yes [id number] Check U nivers se Meter 6-09 blood ity of (FREESTYLE 00:00: glucose 4x [place] LITE METER) 00 daily Medical Kit Branch blood sugar 0 Yes [id number] Check U nivers diagnostic 6-09 blood ity of (FREESTYLE 00:00: glucose 4x [place] LITE 00 daily Medical STRIPS) Branch strip lancets 0 Yes [id number] Check Unive rs (FREESTYLE 6-09 glucose 4x ity of LANCETS) 28 00:00: daily [facility] Blood-Gluco 0 Yes [id number] Check U nivers se Meter 6-09 blood ity of (FREESTYLE 00:00: glucose 4x [place] LITE METER) 00 daily Medical Kit Branch blood sugar 0 Yes [id number] Check U nivers diagnostic 6-09 blood ity of (FREESTYLE 00:00: glucose 4x [place] LITE 00 daily Medical STRIPS) Branch strip lancets 0 Yes [id number] Check Unive rs (FREESTYLE 6-09 glucose 4x ity of LANCETS) 28 00:00: daily [facility] Blood-Gluco 0 Yes [id number] Check U nivers se Meter 6-09 blood ity of (FREESTYLE 00:00: glucose 4x [place] LITE METER) 00 daily Medical Kit Branch blood sugar Yes [id number] Check U nivers diagnostic 6-09 blood ity of (FREESTYLE 00:00: glucose 4x [place] LITE 00 daily Medical STRIPS) Branch strip lancets Yes [id number] Check Unive rs (FREESTYLE 6-09 glucose 4x ity of LANCETS) 28 00:00: daily [facility] Blood-Gluco Yes [id number] Check U nivers se Meter 6-09 blood ity of (FREESTYLE 00:00: glucose 4x [place] LITE METER) 00 daily Medical Kit Branch blood sugar Yes [id number] Check U nivers diagnostic 6-09 blood ity of (FREESTYLE 00:00: glucose 4x [place] LITE 00 daily Medical STRIPS) Branch strip lancets Yes [id number] Check Unive rs (FREESTYLE 6-09 glucose 4x ity of LANCETS) 28 00:00: daily [facility] Blood-Gluco Yes [id number] Check U nivers se Meter 6-09 blood ity of (FREESTYLE 00:00: glucose 4x [place] LITE METER) 00 daily Medical Kit Branch blood sugar Yes [id number] Check U nivers diagnostic 6-09 blood ity of (FREESTYLE 00:00: glucose 4x [place] LITE 00 daily Medical STRIPS) Branch strip lancets Yes [id number] Check Unive rs (FREESTYLE 6-09 glucose 4x ity of LANCETS) 28 00:00: daily [facility] Blood-Gluco 0 Yes [id number] Check U nivers se Meter 6-09 blood ity of (FREESTYLE 00:00: glucose 4x [place] LITE METER) 00 daily Medical Kit Branch blood sugar Yes [id number] Check U nivers diagnostic 6-09 blood ity of (FREESTYLE 00:00: glucose 4x [place] LITE 00 daily Medical STRIPS) Branch strip lancets Yes [id number] Check Unive rs (FREESTYLE 6-09 glucose 4x ity of LANCETS) 28 00:00: daily [facility] Blood-Gluco 2022-0 Yes [id number] Check U nivers se Meter 6-09 blood ity of (FREESTYLE 00:00: glucose 4x [place] LITE METER) 00 daily Medical Kit Branch blood sugar 2022-0 Yes [id number] Check U nivers diagnostic 6-09 blood ity of (FREESTYLE 00:00: glucose 4x [place] LITE 00 daily Medical STRIPS) Branch strip lancets 2022-0 Yes [id number] Check Unive rs (FREESTYLE 6-09 glucose 4x ity of LANCETS) 28 00:00: daily [facility] Blood-Gluco 2022-0 Yes [id number] Check U nivers se Meter 6-09 blood ity of (FREESTYLE 00:00: glucose 4x [place] LITE METER) 00 daily Medical Kit Branch blood sugar 2022-0 Yes [id number] Check U nivers diagnostic 6-09 blood ity of (FREESTYLE 00:00: glucose 4x [place] LITE 00 daily Medical STRIPS) Branch strip lancets 2022-0 Yes [id number] Check Unive rs (FREESTYLE 6-09 glucose 4x ity of LANCETS) 28 00:00: daily [facility] Blood-Gluco 2022-0 Yes [id number] Check U nivers se Meter 6-09 blood ity of (FREESTYLE 00:00: glucose 4x [place] LITE METER) 00 daily Medical Kit Branch blood sugar 2022-0 Yes [id number] Check U nivers diagnostic 6-09 blood ity of (FREESTYLE 00:00: glucose 4x [place] LITE 00 daily Medical STRIPS) Branch strip lancets 2022-0 Yes [id number] Check Unive rs (FREESTYLE 6-09 glucose 4x ity of LANCETS) 28 00:00: daily [facility] Blood-Gluco 2022-0 Yes [id number] Check U nivers se Meter 6-09 blood ity of (FREESTYLE 00:00: glucose 4x [place] LITE METER) 00 daily Medical Kit Branch blood sugar 2022-0 Yes [id number] Check U nivers diagnostic 6-09 blood ity of (FREESTYLE 00:00: glucose 4x [place] LITE 00 daily Medical STRIPS) Branch strip lancets 2022-0 Yes [id number] Check Unive rs (FREESTYLE 6-09 glucose 4x ity of LANCETS) 28 00:00: daily [facility] Blood-Gluco 2022-0 Yes [id number] Check U nivers se Meter 6-09 blood ity of (FREESTYLE 00:00: glucose 4x [place] LITE METER) 00 daily Medical Kit Branch blood sugar 0 Yes [id number] Check U nivers diagnostic 6-09 blood ity of (FREESTYLE 00:00: glucose 4x [place] LITE 00 daily Medical STRIPS) Branch strip lancets 0 Yes [id number] Check Unive rs (FREESTYLE 6-09 glucose 4x ity of LANCETS) 28 00:00: daily [facility] Blood-Gluco 2022-0 Yes [id number] Check U nivers se Meter 6-09 blood ity of (FREESTYLE 00:00: glucose 4x [place] LITE METER) 00 daily Medical Kit Branch blood sugar 0 Yes [id number] Check U nivers diagnostic 6-09 blood ity of (FREESTYLE 00:00: glucose 4x [place] LITE 00 daily Medical STRIPS) Branch strip lancets 0 Yes [id number] Check Unive rs (FREESTYLE 6-09 glucose 4x ity of LANCETS) 28 00:00: daily [facility] Blood-Gluco 2022-0 Yes [id number] Check U nivers se Meter 6-09 blood ity of (FREESTYLE 00:00: glucose 4x [place] LITE METER) 00 daily Medical Kit Branch blood sugar 2022-0 Yes [id number] Check U nivers diagnostic 6-09 blood ity of (FREESTYLE 00:00: glucose 4x [place] LITE 00 daily Medical STRIPS) Branch strip lancets 2022-0 Yes [id number] Check Unive rs (FREESTYLE 6-09 glucose 4x ity of LANCETS) 28 00:00: daily [facility] Blood-Gluco 2022-0 Yes [id number] Check U nivers se Meter 6-09 blood ity of (FREESTYLE 00:00: glucose 4x [place] LITE METER) 00 daily Medical Kit Branch blood sugar Yes [id number] Check U nivers diagnostic 03-14 blood ity of (FREESTYLE 00:00: glucose 4x [place] LITE 00 daily Medical STRIPS) Branch strip ampicillin 2022- No [id number] 500mg Take 1 Univers 500 mg 03-14 capsule by ity of capsule 00:00: 04:59 mouth 4 [place] 00 :00 (four) Medical times [place] daily for 10 days. ampicillin 2022- No [id number] 500mg Take 1 Univers 500 mg 03-14 capsule by ity of capsule 00:00: 04:59 mouth 4 [place] 00 :00 (four) Medical times [place] daily for 10 days. ampicillin 2022- No [id number] 500mg Take 1 Univers 500 mg 03-14 capsule by ity of capsule 00:00: 04:59 mouth 4 [place] 00 :00 ([facility]) Medical times [place] daily for 10 days. ampicillin 2022- No [id number] 500mg Take 1 Univers 500 mg 03-14 capsule by ity of capsule 00:00: 04:59 mouth 4 [place] 00 :00 ([facility]) Medical times [place] daily for 10 days. Vital Signs Vital Name Observation Time Observation Value Comments Source Systolic blood 2023-05-28 13:08:00 122 [facility] 2023-05-28 13:08:00 74 [facility]Hg[facility] 2023-05-28 13:08:00 88 /min [facility] Body temperature 2023-05-28 13:08:00 36.17 Ledy [facility] Respiratory rate 2023-05-28 13:08:00 18 /min [facility] Body height 2023-05-28 13:08:00 160 cm [facility] Body weight 2023-05-28 13:08:00 126.639 kg [facility] BMI 2023-05-28 13:08:00 49.46 kg/m2 [facility] Systolic blood 2023-05-08 15:31:00 107 mm[Hg] Univer sity of pressure [place] [facility] Diastolic blood 2023-05-08 15:31:00 58 mm[Hg] Unive rsity of pressure [place] [facility] Heart rate 2023-05-08 15:31:00 81 /min [facility] [place] [facility] Body temperature 2023-05-08 15:31:00 36.44 Ledy [facility] [place] [facility] Respiratory rate 2023-05-08 15:31:00 17 /min Univ ersity [facility] [place] [facility] Body height 2023-05-08 15:31:00 160 cm [facility] [place] [facility] Body weight 2023-05-08 15:31:00 125.828 kg [facility] [place] [facility] BMI 2023-05-08 15:31:00 49.14 kg/m2 [facility] [place] [facility] Systolic blood 2023-04-24 20:42:00 101 mm[Hg] Univer sity of pressure [place] [facility] Diastolic blood 2023-04-24 20:42:00 70 mm[Hg] Unive rsity of pressure [place] [facility] Heart rate 2023-04-24 20:42:00 78 /min [facility] [place] [facility] Body temperature 2023-04-24 20:42:00 36.56 Ledy [facility] [place] [facility] Respiratory rate 2023-04-24 20:42:00 20 /min Univ ersity [facility] [place] [facility] Body height 2023-04-24 20:42:00 160 cm [facility] [place] [facility] Body weight 2023-04-24 20:42:00 126.417 kg [facility] [place] [facility] BMI 2023-04-24 20:42:00 49.37 kg/m2 [facility] [place] [facility] Systolic blood 2023-04-17 14:46:00 105 mm[Hg] Univer sity of pressure [place] [facility] Diastolic blood 2023-04-17 14:46:00 66 mm[Hg] Unive rsity of pressure [place] [facility] Heart rate 2023-04-17 14:46:00 70 /min [facility] [place] [facility] Body temperature 2023-04-17 14:46:00 36.61 Ledy [facility] [place] [facility] Respiratory rate 2023-04-17 14:46:00 20 /min Univ ers[facility] [place] [facility] Body height 2023-04-17 14:46:00 160 cm [facility] [place] [facility] Body weight 2023-04-17 14:46:00 126.871 kg [facility] [place] [facility] BMI 2023-04-17 14:46:00 49.55 kg/m2 [facility] [place] [facility] Systolic blood 2023-04-09 13:04:00 125 mm[Hg] Univer sity of pressure [place] [facility] Diastolic blood 2023-04-09 13:04:00 70 mm[Hg] Unive rsity of pressure [place] [facility] Heart rate 2023-04-09 13:04:00 74 /min [facility] [place] [facility] Body temperature 2023-04-09 13:04:00 36.5 Ledy [facility] [place] [facility] Respiratory rate 2023-04-09 13:04:00 20 /min Univ ers[facility] [place] [facility] Body height 2023-04-09 13:04:00 160 cm [facility] [place] [facility] Body weight 2023-04-09 13:04:00 125.919 kg [facility] [place] [facility] BMI 2023-04-09 13:04:00 49.17 kg/m2 [facility] [place] [facility] Systolic blood 2023-03-31 16:01:00 116 mm[Hg] Univer sity of pressure [place] [facility] Diastolic blood 2023-03-31 16:01:00 73 mm[Hg] Unive rsity of pressure [place] [facility] Heart rate 2023-03-31 16:01:00 73 /min [facility] [place] [facility] Body temperature 2023-03-31 16:01:00 36.72 Ledy Univ [facility] [place] [facility] Respiratory rate 2023-03-31 16:01:00 20 /min Univ ersity [facility] [place] [facility] Body height 2023-03-31 16:01:00 160 cm [facility] [place] [facility] Body weight 2023-03-31 16:01:00 128.935 kg [facility] [place] [facility] BMI 2023-03-31 16:01:00 50.35 kg/m2 [facility] [place] [facility] Systolic blood 2023-03-17 18:55:00 122 mm[Hg] Univer sity of pressure [facility] Diastolic blood 2023-03-17 18:55:00 73 mm[Hg] Unive rsity of pressure [facility] Heart rate 2023-03-17 18:55:00 66 /min Universi ty [facility] Body temperature 2023-03-17 18:55:00 37.22 [facility]edy [facility] 2023-03-17 18:55:00 18 /min [facility] Body weight 2023-03-17 18:55:00 129.774 kg Universi ty of [facility] BMI 2023-03-17 18:55:00 50.68 kg/m2 Universi ty [facility] Systolic blood 2023-03-12 15:29:00 120 mm[Hg] Univer sity of [facility] Diastolic blood 2023-03-12 15:29:00 74 mm[Hg] Unive rsity of [facility] Heart rate 2023-03-12 15:29:00 62 /min Universi ty [facility] Body temperature 2023-03-12 15:29:00 35.78 Ledy [facility] Respiratory rate 2023-03-12 15:29:00 18 /min [facility] Body height 2023-03-12 15:29:00 160 cm Universi ty [facility] Body weight 2023-03-12 15:29:00 130.318 kg Universi ty [facility] BMI 2023-03-12 15:29:00 50.89 kg/m2 [facility] Procedures Procedure Date / Time Performed Performing Clinician Sour e DIABETES TESTING 2023-05-29 05:01:00 Doctor Unassigned, No Unive [facility] REPORTS [facility] SECOND AND THIRD 2023-05-28 14:51:00 Leonardo [facility] TRIMESTER ULTRASOUND Medical [facility] SECOND AND THIRD 2023-05-28 14:42:00 Leonardo [facility] ULTRASOUND Medical [facility] POCT URINALYSIS 2023-05-28 13:10:00 Anisa Neville [facility] POCT URINALYSIS 2023-05-08 00:00:00 Anisa Neville [facility] SECOND AND THIRD 2023-04-30 13:43:00 Fojt, [facility] TRIMESTER ULTRASOUND Medical Bra nch QUAD SCRN 2023-04-24 21:22:00 Anisa Neville [facility] DIABETES TESTING 2023-04-24 05:01:00 Doctor Unassigned, No Unive [facility] REPORTS [facility] POCT URINALYSIS 2023-04-24 00:00:00 Anisa Neville [facility] POCT URINALYSIS 2023-04-17 00:00:00 Anisa Neville [facility] COMP. METABOLIC PANEL 2023-04-09 14:04:00 Anisa Neville U [facility] ([id number]) [facility] CREATININE U 24 HR 2023-04-09 13:13:00 Fojt, [facility] PROTEIN QUANT U/24H 2023-04-09 13:13:00 Fojt, [facility] POCT TEST 2023-03-12 15:17:00 Anisa Neville Uni [facility] POCT URINALYSIS W/O 2023-03-12 15:17:00 Anisa Neville [facility] SPECIFIC [facility] ASSIGNMENT OF BENEFITS 2023-03-12 14:58:17 Doctor Unassigned, No [facility] Encounters Start End Encounter Admission Attending Care Care Encounter Source Date/Time Date/Time Type Type Clinicians Facility Department ID 2023-06-25 2023-06-25 Outpatient P [facility] [id number] Univers 08:00:00 08:00:00 ity [facility] 2023-05-29 2023-05-29 Orders Doctor MUHAMMAD 1.2.840.114 [id number] Univers 00:00:00 00:00:00 Only Unassigned, KASEY 350.1.13.10 [facility] 4.2.7.2.686 Tin as [phone] [address] 2023-05-28 2023-05-28 [facility] Ultrasound, Derek [facility] 1.2 .840.114 [id number] Univers 08:45:00 10:00:00 Visit Sally Paz RN IMAGING 350.1.13.1 0 ity of Margo Carrera REGIONAL 4.2.7.2.686 [place] MATERNAL [phone] Med ical & CHILD 369 [facility] 2023-05-28 2023-05-28 Outpatient P MARGO CARRERA [facility] [id number] Univers 08:45:00 08:45:00 MARGO CARRERA ity of [facility] 2023-05-28 2023-05-28 Routine Brenna [facility] 1.2.840.114 [id number] Univers 07:45:00 08:24:45 Sally Pinzon RN IMAGING 350.1.13.10 ity of Visit REGIONAL 4.2.7.2.686 Tin as MATERNAL [id number] [facility] ical & CHILD [address] [place] [address] 2023-05-28 2023-05-28 [facility] 1.2.840.114 [id number] Univers 00:00:00 00:00:00 Anisa Nolen RN IMAGING 350.1.13.10 ity of REGIONAL 4.2.7.2.686 Tin as MATERNAL [id number] [facility] ical & CHILD [address] [place] [address] 2023-05-28 2023-05-28 Abstract Dano Patterson [facility] 1.2.840.114 1 [id number] Univers 00:00:00 00:00:00 RN IMAGING 350.1.13.10 it y of REGIONAL 4.2.7.2.686 Tin as MATERNAL [id number] Med ical & CHILD 358 [facility] 2023-05-28 2023-05-28 Abstract Dano Patterson [facility] 1.2.840.114 1 [id number] Univers 00:00:00 00:00:00 RN IMAGING 350.1.13.10 it y of REGIONAL 4.2.7.2.686 Tin as MATERNAL [id number] Med ical & CHILD [address] [place] [address] 2023-05-23 2023-05-23 [facility] 1.2.840.114 [id number] Univers 00:00:00 00:00:00 Anisa Nolen RN IMAGING 350.1.13.10 ity of REGIONAL 4.2.7.2.686 Tin as MATERNAL [id number] [facility] ical & CHILD [address] [place] [address] 2023-05-14 2023-05-14 Abstract Leonardo [facility] 1.2.840.114 1 [id number] Univers 00:00:00 00:00:00 RN IMAGING 350.1.13.10 it y of REGIONAL 4.2.7.2.686 Tin as MATERNAL [id number] [facility] ical & CHILD [address] [place] [address] 2023-05-08 2023-05-08 Outpatient Lance MACEDO [facility] [id number] Univers 10:00:00 11:02:35 MALISSA [facility] 2023-05-08 2023-05-08 Routine Risk, All-Nvtra-Bz/High [facility] 1. 2.840.114 [id number] Univers 10:00:00 11:02:35 Malissa Macedo RN IMAGING 350.1.13.10 ity of Visit REGIONAL 4.2.7.2.686 Tin as MATERNAL [id number] [facility] [address] [place] [address] 2023-05-01 2023-05-01 [facility] 1.2.840.114 1 [id number] Univers 00:00:00 00:00:00 RN IMAGING 350.1.13.10 it y of REGIONAL 4.2.7.2.686 Tin as MATERNAL [id number] [facility] ical & CHILD [address] [place] [address] 2023-04-30 2023-04-30 Outpatient Ryder BONE [facility] [id number] Univers 08:00:00 09:36:57 JORDI hinojosa [facility] 2023-04-30 2023-04-30 [facility] Ultrasound, Derek [facility] 1.2 .840.114 [id number] Univers 08:00:00 09:36:57 Visit Jordi Bone RN IMAGING 350.1. 13.10 ity of REGIONAL 4.2.7.2.686 Tin as MATERNAL [id number] Med ical & CHILD 369 [facility] 2023-04-24 2023-04-24 Outpatient R KELIN [facility] [id number] Univers 15:45:00 16:21:08 ANISA ity o f [facility] 2023-04-24 2023-04-[address] [facility] 1.2.430.735 [id number] Univers 15:45:00 16:21:08 Anisa C RN IMAGING 350.1.13.10 ity of Visit REGIONAL 4.2.7.2.686 Tin as MATERNAL [id number] Med ical & CHILD [address] [place] [address] 2023-04-24 2023-04-24 Orders Doctor SABINA 1.2.840.114 [id number] Univers 00:00:00 00:00:00 Only Unassigned, KASEY 350.1.13.10 ity of [place] [facility] 4.2.7.2.686 Tin as [id number] [address] 2023-04-17 2023-04-17 Outpatient R KAREN [facility] [id number] Univers 09:15:00 10:23:11 MALISSA hinojosa [facility] 2023-04-17 2023-04-17 Routine Risk, Kuy-Fkjlc-Wl/High [facility] 1. 2.840.114 [id number] Univers 09:15:00 10:23:11 Malissa Macedo RN IMAGING 350.1.13.10 ity of Visit REGIONAL 4.2.7.2.686 Tin as MATERNAL [id number] Med ical & CHILD [address] [place] [address] 2023-04-16 2023-04-[address] [facility] 1.2.840.114 [id number] Univers 00:00:00 00:00:00 Anisa C RN IMAGING 350.1.13.10 ity of REGIONAL 4.2.7.2.686 Tin as MATERNAL [id number] Med ical & CHILD [address] [place] [address] 2023-04-09 2023-04-09 Outpatient R KELIN, [facility] [id number] Univers 08:00:00 09:06:46 ANISA ity o [facility] 2023-04-09 2023-04-09 Routine Kelin, [facility] 1.2.864.208 [id number] Univers 08:00:00 09:06:46 Anisa C RN IMAGING 350.1.13.10 ity of Visit REGIONAL 4.2.7.2.686 Tin as MATERNAL [id number] [facility] ical & CHILD [address] [place] [address] 2023-03-31 2023-03-31 Outpatient R KELIN, [facility] [id number] Univers 11:00:00 11:42:33 ANISA hinojosa o [facility] 2023-03-31 2023-03-31 [facility]ine [facility] 1 .2.840.114 [id number] Univers 11:00:00 11:42:33 AkinTony lancasterilola C RN IMAGING 350.1.13 .10 ity of Visit REGIONAL 4.2.7.2.686 Tin as MATERNAL [id number] [facility] & [address] 2023-03-17 2023-03-17 [facility] 1.2 .840.114 [id number] Univers 14:00:00 14:00:00 Visit Anisa Neville RN IMAGING 350.1.13. 10 ity of REGIONAL 4.2.7.2.686 Tin as MATERNAL [id number] [facility] ical & CHILD [address] [place] [address] 2023-03-17 2023-03-17 Outpatient R KELIN, [facility] [id number] Univers 13:15:00 13:42:34 ANISA ity o [facility] 2023-03-17 2023-03-17 [facility] 1.2.840. 114 [id number] Univers 13:15:00 13:30:00 Visit Anisa Neville RN IMAGING 350.1.13. 10 ity of REGIONAL 4.2.7.2.686 Tin as MATERNAL [id number] [facility] [address] [place] [address] 2023-03-14 2023-03-14 Telephone [facility] 1.2.840.114 [id number] Univers 00:00:00 00:00:00 Anisa C RN IMAGING 350.1.13.10 ity of [facility] 4.2.7.2.686 Tin as MATERNAL [phone] [facility] & CHILD [address] [place] [address] 2023-03-14 2023-03-14 Telephone [facility] [id number] [facility] 00:00:00 00:00:00 Anisa C RN IMAGING 350.1.13.10 ity of [facility] 4.2.7.2.686 Tin as MATERNAL [phone] [address] 2023-03-12 2023-03-12 [facility] [id number] [facility] 10:15:00 11:21:12 Anisa C RN IMAGING 350.1.13.10 ity of Visit [facility] 4.2.7.2.686 Tin as MATERNAL [phone] [address] 2023-03-12 2023-03-12 Outpatient R [facility] [id number] Univers 09:45:00 10:24:59 ANISA hinojosa o f [facility] 2023-03-12 2023-03-12 Orders Doctor SABINA [id number] [facility] 00:00:00 00:00:00 Only Unassigned, KASEY 350.1.13.10 ity of [place] [facility] 4.2.7.2.686 Tin as [phone] [address] Results Test Description Test Time Test Comments Results Result Comments Source POCT URINALYSIS W SPECIFIC GRAVITY 2023-05-28 13:10:00 Test Item Value Reference Range Interpretation Comme nts POCT U SP GRAV (test code = 3255) . 1.005-1.025 POCT PH U (test code = 3254) 5 mg/dl 5-8 POCT U LEUK EST (test code = 3263) Trace Negative - Negative POCT U NIT (test code = 3262) Neg Negative - Negative POCT U PROT (test code = 3259) Trace Negative - Negative POCT U GLU (test code = 3256) Neg Negative - Negative POCT U KETONE (test code = 3258) None Negative - Negative POCT U UROBILI (test code = 3260) . 0.2-1 POCT U BILI (test code = 3261) . Negative - Negative POCT U BLD (test code = 3257) Trace Negative - Negative POCT U COLOR (test code = 3266) . POCT U APPEAR (test code = 3267) . [facility] [id number] 15:32:00 Test Item Value Reference Range Interpretation Comments POCT U SP GRAV (test code = . 1.005-1.025 3255) POCT PH U (test code = 3254) 5 mg/dl 5-8 POCT U LEUK EST (test code = 1+ Negative - Negative 3263) POCT U NIT (test code = 3262) negative Negative - Negative POCT U PROT (test code = 3259) trace Negative - Negative POCT U GLU (test code = 3256) negative Negative - Negative POCT U KETONE (test code = 3258) negative Negative - Negative POCT U UROBILI (test code = . 0.2-1 3260) POCT U BILI (test code = 3261) . Negative - Negative POCT U BLD (test code = 3257) negative Negative - Negative POCT U COLOR (test code = 3266) . POCT U APPEAR (test code = 3267) . [facility] [id number] 19:09:35 Test Item Value Reference Interpretation Comments Range RACE (test code = 1800641423) WEIGHT (test code = 278.7 lbs 3220102644) GEST. AGE (test 15,2 code = 2986058512) INS. DEP (test code Yes = 3201171631) LMP (test code = 98764163 4060607254) US DATE (test code = 3870307282) PE DATE (test code = 3084581405) METHOD (test code = LMP 1461147111) MULT GEST (test No code = 6770475232) NTD HX (test code = No 7443342318) INITAL OR REPEAT Initial (test code = Testing 1285002840) SMOKER (test code = No 0786393417) RH (test code = 5866091898) INHIBIN (test code 124.0 pg/mL = 1885157084) AFP-MS (test code = 13.9 ng/mL 8461863929) ESTRIOL (test code 0.55 ng/mL = 9264888578) BHCG DOWNS (test 22261.0 mIU/mL code = 5270414087) AFP-MS MoM (test 0.90 code = 9916508696) BHCG MoM (test code 1.34 = 0806792951) INHIBIN MoM (test 0.79 code = 5267186459) E3 MoM (test code = 0.90 6811054317) EQ AGE RSK (test < 15.0 less than t hat of a 15.0 code = 6240410840) year old DS APR (test code = 1:1100 8993407384) DS INTERP (test See Note The risk of Down code = 1450642054) syndrome is LESS than the screening c ut-off. Nofollow-up is indicated regarding this result. DS RSK (test code = 1:6680 The risk at 3508843605) mid-trimester i s equal to 1:6680 DS SCRN (test code Negative = 6813670429) TRISOMY 18 (test See Note These serum marker code = 0792324006) levels ar e not consistent with the pattern seen in Trisomy 18 pregnancies. Maternal serum screening will detectapproxima tely 60% of Trisomy 18 pregnancies. ES RSK (test code = 1:88435 The risk of Trisomy 18 5075950321) is equal to 1:7 8000The Trisomy 18 cut- off is 1:45 ES SCRN (test code Negative = 1074100821) OSB INTERP (test See Note The materna l serum AFP code = 7283135214) result is NOT elevated for a of thisgestational age. The risk of an open neural tube defect is less thanthe screeni ng cut-off. OSB RSK (test code 1:1690 The risk of OSB is equal = 8137458891) to 1:1690The O SB cut-off is 2.06 (1:104) OSB SCRN (test code Negative = 9967793834) INTERPRETATION N INTERPRETATIO N: SCREEN (test code = NEGATIVE 4375121792) [facility] URINALYSIS W SPECIFIC [id number] 20:47:00 Test Item Value Reference Range Interpretation Comments POCT U SP GRAV (test code = . 1.005-1.025 3255) POCT PH U (test code = 3254) . 5-8 POCT U LEUK EST (test code = . Negative - Negative 3) POCT U NIT (test code = 3262) . Negative - Negative POCT U PROT (test code = 3259) trace Negative - Negative POCT U GLU (test code = 3256) negative Negative - Negative POCT U KETONE (test code = 3258) . Negative - Negative POCT U UROBILI (test code = . 0.2-1 3260) POCT U BILI (test code = 3261) . Negative - Negative POCT U BLD (test code = 3257) . Negative - Negative POCT U COLOR (test code = 3266) . POCT U APPEAR (test code = 3267) . [facility] URINALYSIS W SPECIFIC [id number] 14:48:00 Test Item Value Reference Range Interpretation Comments POCT U SP GRAV (test code = . 1.005-1.025 3255) POCT PH U (test code = 3254) 5 mg/dl 5-8 POCT U LEUK EST (test code = negative Negative - Negative 3) POCT U NIT (test code = 3262) positive Negative - Negative POCT U PROT (test code = 3259) trace Negative - Negative POCT U GLU (test code = 3256) negative Negative - Negative POCT U KETONE (test code = 3258) negative Negative - Negative POCT U UROBILI (test code = . 0.2-1 3260) POCT U BILI (test code = 3261) . Negative - Negative POCT U BLD (test code = 3257) negative Negative - Negative POCT U COLOR (test code = 3266) . POCT U APPEAR (test code = 3267) . [facility] URINALYSIS W/O SPECIFIC [id number] 15:19:00 Test Item Value Reference Range Interpretation Comments POCT PH U (test code = 3254) 6 mg/dl 5-8 POCT U LEUK EST (test code = trace Negative - Negative 3263) POCT U NIT (test code = 3262) neg Negative - Negative POCT U PROT (test code = 3259) trace Negative - Negative POCT U GLU (test code = 3256) neg Negative - Negative POCT U KETONE (test code = 3258) neg Negative - Negative POCT U BLD (test code = 3257) neg Negative - Negative [facility] W/O SPECIFIC [id number] 15:19:00 Test Item Value Reference Range Interpretation Comments POCT PH U (test code = 3254) 6 mg/dl 5-8 POCT U LEUK EST (test code = trace Negative - Negative 3263) POCT U NIT (test code = 3262) neg Negative - Negative POCT U PROT (test code = 3259) trace Negative - Negative POCT U GLU (test code = 3256) neg Negative - Negative POCT U KETONE (test code = 3258) neg Negative - Negative POCT U BLD (test code = 3257) neg Negative - Negative [facility] W/O SPECIFIC [id number] 15:19:00 Test Item Value Reference Range Interpretation Comments POCT PH U (test code = 3254) 6 mg/dl 5-8 POCT U LEUK EST (test code = trace Negative - Negative 3263) POCT U NIT (test code = 3262) neg Negative - Negative POCT U PROT (test code = 3259) trace Negative - Negative POCT U GLU (test code = 3256) neg Negative - Negative POCT U KETONE (test code = 3258) neg Negative - Negative POCT U BLD (test code = 3257) neg Negative - Negative [facility] W/O SPECIFIC [id number] 15:19:00 Test Item Value Reference Range Interpretation Comments POCT PH U (test code = 3254) 6 mg/dl 5-8 POCT U LEUK EST (test code = trace Negative - Negative 3263) POCT U NIT (test code = 3262) neg Negative - Negative POCT U PROT (test code = 3259) trace Negative - Negative POCT U GLU (test code = 3256) neg Negative - Negative POCT U KETONE (test code = 3258) neg Negative - Negative POCT U BLD (test code = 3257) neg Negative - Negative [facility] W/O SPECIFIC [id number] 15:19:00 Test Item Value Reference Range Interpretation Comments POCT PH U (test code = 3254) 6 mg/dl 5-8 POCT U LEUK EST (test code = trace Negative - Negative 3263) POCT U NIT (test code = 3262) neg Negative - Negative POCT U PROT (test code = 3259) trace Negative - Negative POCT U GLU (test code = 3256) neg Negative - Negative POCT U KETONE (test code = 3258) neg Negative - Negative POCT U BLD (test code = 3257) neg Negative - Negative [facility] URINALYSIS W/O SPECIFIC [id number] 15:19:00 Test Item Value Reference Range Interpretation Comments POCT PH U (test code = 3254) 6 mg/dl 5-8 POCT U LEUK EST (test code = trace Negative - Negative 3263) POCT U NIT (test code = 3262) neg Negative - Negative POCT U PROT (test code = 3259) trace Negative - Negative POCT U GLU (test code = 3256) neg Negative - Negative POCT U KETONE (test code = 3258) neg Negative - Negative POCT U BLD (test code = 3257) neg Negative - Negative [facility] [id number] 15:19:00 Test Item Value Reference Range Interpretation Comments POCT PH U (test code = 3254) 6 mg/dl 5-8 POCT U LEUK EST (test code = trace Negative - Negative 3263) POCT U NIT (test code = 3262) neg Negative - Negative POCT U PROT (test code = 3259) trace Negative - Negative POCT U GLU (test code = 3256) neg Negative - Negative POCT U KETONE (test code = 3258) neg Negative - Negative POCT U BLD (test code = 3257) neg Negative - Negative [facility] W/O SPECIFIC [id number] 15:19:00 Test Item Value Reference Range Interpretation Comments POCT PH U (test code = 3254) 6 mg/dl 5-8 POCT U LEUK EST (test code = trace Negative - Negative 3263) POCT U NIT (test code = 3262) neg Negative - Negative POCT U PROT (test code = 3259) trace Negative - Negative POCT U GLU (test code = 3256) neg Negative - Negative POCT U KETONE (test code = 3258) neg Negative - Negative POCT U BLD (test code = 3257) neg Negative - Negative [facility] URINALYSIS W/O SPECIFIC [id number] 15:19:00 Test Item Value Reference Range Interpretation Comments POCT PH U (test code = 3254) 6 mg/dl 5-8 POCT U LEUK EST (test code = trace Negative - Negative 3263) POCT U NIT (test code = 3262) neg Negative - Negative POCT U PROT (test code = 3259) trace Negative - Negative POCT U GLU (test code = 3256) neg Negative - Negative POCT U KETONE (test code = 3258) neg Negative - Negative POCT U BLD (test code = 3257) neg Negative - Negative [facility] URINALYSIS W/O SPECIFIC [id number] 15:19:00 Test Item Value Reference Range Interpretation Comments POCT PH U (test code = 3254) 6 mg/dl 5-8 POCT U LEUK EST (test code = trace Negative - Negative 3263) POCT U NIT (test code = 3262) neg Negative - Negative POCT U PROT (test code = 3259) trace Negative - Negative POCT U GLU (test code = 3256) neg Negative - Negative POCT U KETONE (test code = 3258) neg Negative - Negative POCT U BLD (test code = 3257) neg Negative - Negative [facility] [id number] 15:17:00 Test Item Value Reference Range Interpretation Comments POCT PREG (test code = 1605) Positive On board controls acceptable with C Yes Line (test code = 3574) POCT PREG LOT # (test code = 3575) POCT PREG TEST DATE (test code = 3576) [facility] [id number] 15:17:00 Test Item Value Reference Range Interpretation Comments POCT PREG (test code = 1605) Positive On board controls acceptable with C Yes Line (test code = 3574) POCT PREG LOT # (test code = 3575) POCT PREG TEST DATE (test code = 3576) [facility] [id number] 15:17:00 Test Item Value Reference Range Interpretation Comments POCT PREG (test code = 1605) Positive On board controls acceptable with C Yes Line (test code = 3574) POCT PREG LOT # (test code = 3575) POCT PREG TEST DATE (test code = 3576) [facility] [id number] 15:17:00 Test Item Value Reference Range Interpretation Comments POCT PREG (test code = 1605) Positive On board controls acceptable with C Yes Line (test code = 3574) POCT PREG LOT # (test code = 3575) POCT PREG TEST DATE (test code = 3576) [facility] [id number] 15:17:00 Test Item Value Reference Range Interpretation Comments POCT PREG (test code = 1605) Positive On board controls acceptable with C Yes Line (test code = 3574) POCT PREG LOT # (test code = 3575) POCT PREG TEST DATE (test code = 3576) [facility] [id number] 15:17:00 Test Item Value Reference Range Interpretation Comments POCT PREG (test code = 1605) Positive On board controls acceptable with C Yes Line (test code = 3574) POCT PREG LOT # (test code = 3575) POCT PREG TEST DATE (test code = 3576) [facility] [id number] 15:17:00 Test Item Value Reference Range Interpretation Comments POCT PREG (test code = 1605) Positive On board controls acceptable with C Yes Line (test code = 3574) POCT PREG LOT # (test code = 3575) POCT PREG TEST DATE (test code = 3576) [facility] [id number] 15:17:00 Test Item Value Reference Range Interpretation Comments POCT PREG (test code = 1605) Positive On board controls acceptable with C Yes Line (test code = 3574) POCT PREG LOT # (test code = 3575) POCT PREG TEST DATE (test code = 3576) [facility] [id number] 15:17:00 Test Item Value Reference Range Interpretation Comments POCT PREG (test code = 1605) Positive On board controls acceptable with C Yes Line (test code = 3574) POCT PREG LOT # (test code = 3575) POCT PREG TEST DATE (test code = 3576) [facility] [id number] 15:17:00 Test Item Value Reference Range Interpretation Comments POCT PREG (test code = 1605) Positive On board controls acceptable with C Yes Line (test code = 3574) POCT PREG LOT # (test code = 3575) POCT PREG TEST DATE (test code = 3576) [facility], THIRD [id number] 02:44:54 Test Item Value Reference Range Interpretation Comments TSH, THIRD 3.090 UIU/ML 0.400-4.100 UNLESS OTHERWI SE GENERATION (test INDICATED, ALL TESTING code = 2821) PERFORMED AT [facility], [address]Jeromy BROWER DIRECTOR: Kendy PHILLIP CONRADO NUMBER [id number] CAP ACCREDITATION N O. [id number] COMPREHENSIVE METABOLIC [id number] 04:55:22 Test Item Value Reference Range Interpretation Comments GLUCOSE (test code = 81 MG/DL 70-99 2216) BUN (test code = 13 MG/DL 03-25) CREATININE (test 0.67 MG/DL 0.60-1.30 code = 2214) eGFR (2020 CKD-EPI) 126 >60 (test code = 74127) ML/MIN/1.73 CALC BUN/CREAT (test 19 RATIO - code = 2235) SODIUM (test code = 140 MEQ/L 145-736 6909) POTASSIUM (test code 4.1 MEQ/L 3.5-5.4 = 2227) CHLORIDE (test code 104 MEQ/L 95-107 = 2215) CARBON DIOXIDE (test 20 MEQ/L 19-31 code = 2206) CALCIUM (test code = 9.8 MG/DL 8.5-10.5 2208) PROTEIN, TOTAL (test 7.4 G/DL 6.1-8.3 code = 2229) ALBUMIN (test code = 4.5 G/DL 3.5-5.2 2200) CALC GLOBULIN (test 2.9 G/DL 1.9-3.7 code = 2240) CALC A/G RATIO (test 1.6 RATIO 1.0-2.6 code = 2234) BILIRUBIN, TOTAL 0.2 MG/DL See_Comment [Automated message] (test code = 220) The syste m which generated this result transmit [place] reference range : <=1.2. The refe rence range was not u sed to interpret th is result as normal/abnormal . ALKALINE PHOSPHATASE 90 U/L 40-117 (test code = 220) AST (test code = 19 U/L 9-40 2217) ALT (test code = 17 U/L 5-40 2218) LIPID [id number] 04:55:22 Test Item Value Reference Range Interpretation Comments CHOLESTEROL (test 183 MG/DL <200 code = 2210) TRIGLYCERIDES (test 219 MG/DL <150 H code = 2232) HDL CHOLESTEROL (test 38 MG/DL >39 L code = 2220) CALC LDL CHOL (test 111 MG/DL <100 H NOTE: C ALCULATED LDL code = 2237) IS BASED ON ALEJA-FANG METHOD WHICHINCLUDES ADJUSTABLE TRIGLYCERIDE:VL DL CHOLESTEROL RAT IO.THIS FACTOR VARIES B Y MEASURED TRIGLY CERIDE AND NON-HDLCHOL ESTEROL CONCENTRATIONS WITH INCREASED CALCU LATED LDL SEENIN HIGH ER TRIGLYCERIDE OR LOWER NON-HDL SPECIME NS. FOR MOREINFORMATION , SEE CLIENT ANNOUNCE MENT AT [email or web address] RISK RATIO LDL/HDL 2.92 RATIO <3.22 (test code = 2238) HEMOGLOBIN [id number] 04:40:39 Test Item Value Reference Range Interpretation Comments HEMOGLOBIN A1c (test 6.3 % 4.2-5.6 H AMERIC AN DIABETES code = 40406) ASSOCIATION IDELINES FOR HGB A1C: PREDIABETES/INC REASED RISK . . . . . . . 5.7 -6.4% DIAGNOSIS OF DI ABETES . . . . . . . . . >=6 .5% WITH CONFIRMATION OR APPROPRIATE SYMPTOMS NOTE: ASSAY MAY BE AFFECTED BY HEMOGLOBINOPATH IES (SICKLE CELL ANEMIA, S- C DISEASE, OTHERS) OR DURGA FICIALLY LOWERED BY DECR EASED RED CELL SURVIVAL ( HEMOLYTIC ANEMIAS, BLOOD LOSS, ETC.). CONSIDER ALTERN ATE TESTING OR LABORATORY C ONSULTATION. UNLESS OTHERWIS E INDICATED, ALL TESTING PER FORMED AT [facility]ICAL [facility] [employer], [facility]. [address] [address] LABORATORY DIRE CTOR: YUDITH PEREIRA M.D. CLIA NUMBER [id number] CAP ACCREDITATION N O. [id number] CBC W/AUTO DIFF WITH [id number] 02:13:27 Test Item Value Reference Range Interpretation Comments WBC (test code = 9.2 K/UL 3.5-11.0 1001) RBC (test code = 4.81 M/UL 3.80-5.40 1002) HEMOGLOBIN (test code 14.3 G/DL 11.5-15.5 = 1003) HEMATOCRIT (test code 42.9 % 34.0-45.0 = 1004) MCV (test code = 89.2 fL 80.0-99.0 1005) MCH (test code = 29.7 PG 25.0-33.0 1006) MCHC (test code = 33.3 G/DL 31.0-36.0 1007) RDW (test code = 12.3 % 11.5-15.0 1038) NEUTROPHILS (test 76.6 % code = 1008) LYMPHOCYTES (test 15.4 % code = 1010) MONOCYTES (test code 5.6 % = 1011) EOSINOPHILS (test 1.8 % code = 1012) BASOPHILS (test code 0.3 % = 1013) IMMATURE GRANULOCYTES 0.3 % (test code = 1036) NUCLEATED RBCS (test 0.0 /100 WBC'S See_Comment [Aut omated code = 1065) message] The sy stem which generated this result transmitted reference range : 0.0. The refere nce range was not u sed to interpret th is result as normal/abnormal . PLATELET COUNT (test 272 K/UL 130-400 code = 1015) ABSOLUTE NEUTROPHILS 7.04 K/UL 1.50-7.50 (test code = 1066) ABSOLUTE LYMPHOCYTES 1.42 K/UL 1.00-4.00 (test code = 1067) ABSOLUTE MONOCYTES 0.52 K/UL 0.20-1.00 (test code = 1068) ABSOLUTE EOSINOPHILS 0.17 K/UL 0.00-0.50 (test code = 1040) ABSOLUTE BASOPHILS 0.03 K/UL 0.00-0.20 (test code = 1069) ABS IMMATURE 0.03 K/UL 0.00-0.10 GRANULOCYTES (test code = 1020) ABS NUCLEATED RBCS 0.00 K/UL 0.00-0.11 (test code = 97324) PAP TEST, THINPREP, [id number] 14:51:56 Test Item Value Reference Range Interpretation Comments SOURCE: (test code = Cervical/End 8000) ocervical SLIDES: (test code = 1 8011) LMP: (test code = 01/07/2023 8021) SPECIMEN ADEQUACY: (NOTE) Satisfac tory for (test code = 00393) evaluati on. Endocervical cells/transform ation zone component not identified. INTERPRETATION: (test ASCUS/EPITH. A ------ code = 72035) ABNORMALITY; -------- SEE BELOW ------- ---- EPITHE LIAL CELL ABNORMALIT Y Atypical squamo us cells of undete rmined significance (ASC-US)------- ------- ------- ------- OTHER COMMENTS: (test (NOTE) Fungal organisms code = 8081) consistent with Dania present . PUNCHING MACHINE OPERATOR: Negrita Del Rio (test code = 8101) FIORDALIZA Ortiz(ASCP )[facility] PATHOLOGIST Fay INTERPRETATION BY: DO Dalia (test code = 8122) LOCATION: (test code (NOTE) Specime ns processed = 50240) and interpreted at [facility], [address], [place] [address], Phone: , CLIA: [id number] CPT: (test code = (NOTE) 92739, 881 41 UNLESS 8140) OTHERWISE INDIC ATED, COMPUTER AIDED AND CYTOTECHNOLOGIS T SCREENING PERFO RMED. The Pap test is a screening test with an inherent, but l ow probability of error. Your patient sh ould be reminded to con sult you immediately if she experiences any suspicious sign s or symptoms, regar dless of her Pap test result. An alte rnate report format containing imag es or consolidated pr ior Pap history is avai lable as applicable. UNLESS OTHERWISE INDIC ATED, ALL TESTING PER FORMED AT [facility] [employer], [facility]. [address] [place] [address] DOREEN OROSCO DIRECTOR: Kendy PHILLIP CONRADO NUMBER [id number] CAP ACCREDITATION N O. [id number] CT/NG, NAAT, [id number] 19:11:22 Test Item Value Reference Range Interpretation Comments CHLAMYDIA, NAAT, NEGATIVE NEGATIVE Testing is performed with URINE (test code Derek ELLEN 6800/8800 = 96355) systems usingre al-time polymerase bambi n reaction (PCR) method. A negative result does not exclude low level infection , specimensamplin g error, or collection erro r. GONORRHEA, NAAT, NEGATIVE NEGATIVE Testing is performed with URINE (test code Derek ELLEN 6800/8800 = 19156) systems usingre al-time polymerase bambi n reaction (PCR) method. A negative result does not exclude low level infection , specimensamplin g error, or collection erro r. HIV 1/2 4TH GEN, RFLX [id number] 11:01:04 Test Item Value Reference Range Interpretation Comments HIV 1/2 4TH GEN, RFLX CONF (test NON-REACTIVE NON-REACTIVE code = 3514) [id number] 09:03:46 Test Item Value Reference Range Interpretation Comments RPR RESULT (test NON-REACTIVE NON-REACTIVE code = 3501) RPR TITER (test NOT INDIC. NOT INDIC. UNLESS OTHE RWISE code = 3500) TITER INDICATED, ALL TESTING PERFORMED AT [facility] [address] [place] [address] 4 LABORATORY DIRE CTOR: YUDITH PEREIRA M.D. [facility] NUMBER [id number] [place] [id number]
[2023-06-28 05:35] LABS: Specific Gravity 1.022 (1.005-1.030); Urine Bacteria <20 /HPF (<20); Urine Bilirubin NEGATIVE (Negative); Urine Blood Negative (Negative); Urine Clarity Turbid (Clear); Urine Color Light-Yellow (Yellow); Urine Glucose NEGATIVE (Negative); Urine Mucus Slight /HPF (None Seen); Urine Protein NEGATIVE (Negative); Urine RBC <5 /HPF (None Seen); Urine Urobilinogen Normal (Normal)
--- NOTE | 2023-06-28 05:44 | ER ---
Nurse's Notes [facility] Name: Ana Barroso Age: 22 yrs Sex: Female : 2000 Arrival Date: 06/28/2023 Time: 03:18 Bed 14 Private MD: Diagnosis: Dysuria;24 weeks gestation of Presentation: 06/28 03:47 Chief complaint: Patient states: one month ago I was here and was diagnose with a UTI. ha1 Today, I feel that I have another UTI. I feel burning with urination and back pain. pain 02/12. 03:47 Coronavirus screen: Vaccine status: Patient reports being unvaccinated. Ebola Screen: ha1 No symptoms or risks identified at this time. Initial Sepsis Screen: Does the patient meet any 2 criteria? No. Patient's initial sepsis screen is negative. Does the patient have a suspected source of infection? No. Patient's initial sepsis screen is negative. Risk Assessment: Do you want to hurt yourself or someone else? Patient reports no desire to harm self or others. Onset of symptoms was June 28, 2023. 03:47 Method Of Arrival: Ambulatory 1 03:47 Acuity: DELISA 4 ha1 Triage Assessment: 03:47 General: Appears comfortable, Behavior is calm, cooperative. Pain: Complains of pain in ha1 back Pain does not radiate. Pain currently is 5 out of 10 on a pain scale. Neuro: Level of Consciousness is awake, alert, obeys commands, Oriented to person, place, time, situation. Cardiovascular: Patient's skin is warm and dry. Respiratory: Airway is patent Respiratory effort is even, unlabored, Respiratory pattern is regular, symmetrical. GI: No signs and/or symptoms were reported involving the gastrointestinal system. Abdomen is round non-distended. : Reports burning with urination. Derm: Skin is pink, warm \T\ dry. Musculoskeletal: Circulation, motion, and sensation intact. Range of motion: intact in all extremities. Historical: - Allergies: 04:04 No Known Allergies; ha1 - Home Meds: 04:04 Aspirin Oral [Active]; Metformin Oral [Active]; ha1 - PMHx: 04:04 DM; ha1 - Immunization history:: Adult Immunizations up to date. - Social history:: Smoking status: Patient denies any tobacco usage or history of. Screenin:47 [facility] ED Fall Risk Assessment (Adult) History of falling in the last 3 months, ha1 including since admission No falls in past 3 months (0 pts) Confusion or Disorientation No (0 pts) Intoxicated or Sedated No (0 pts) Impaired Gait No (0 pts) Mobility Assist Device Used No (0 pt) Altered Elimination No (0 pt) Score/Fall Risk Level 0 - 2 = Low Risk Oriented to surroundings, Maintained a safe environment, Educated pt \T\ family on fall prevention, incl call for assistance when getting out of bed. Abuse screen: Denies threats or abuse. Denies injuries from another. Nutritional screening: No deficits noted. Tuberculosis screening: No symptoms or risk factors identified. Assessment: 03:47 Reassessment: see triage assessment. ha1 Vital Signs: 03:47 BP 130 / 83; Pulse 84; Resp 16 S; Temp 98.2; Pulse Ox 99% on R/A; Weight 128.82 kg; ha1 Height 5 ft. 2 in. ; Pain 5/10; 05:30 BP 128 / 80; Pulse 80; Resp 17 S; Pulse Ox 99% on R/A; ha1 03:47 Body Mass Index 51.94 (128.82 kg, 157.48 cm) ha1 03:47 Pain Scale: Adult ha1 ED Course: 03:20 Patient arrived in ED. ag3 03:26 Walter Muñoz DO is Attending Physician. ms3 03:47 Patient has correct armband on for positive identification. Placed in gown. Bed in low ha1 position. Call light in reach. Side rails up X 1. Adult w/ patient. 03:47 Arm band placed on right wrist. ha1 03:57 Cleo Johnson, RN is Primary Nurse. ha1 04:04 Triage completed. ha1 06:08 Provided Education on: follow ups . ha1 06:08 No provider procedures requiring assistance completed. Patient did not have IV access ha1 during this emergency room visit. Administered Medications: No medications were administered Medication: 06:08 VIS not applicable for this client. ha1 Outcome: 05:44 Discharge ordered by . ms3 06:08 Discharged to home ambulatory, with family, ha1 06:08 Condition: stable 06:08 Discharge instructions given to patient, family, Instructed on discharge instructions, follow up and referral plans. Demonstrated understanding of instructions, follow-up care, 06:09 Patient left the ED. ha1 Signatures: Cynthia Griffin ag3 Walter Muñoz DO DO ms3 Cleo Johnson, BEATRICE RN ha1
--- NOTE | 2023-06-28 05:44 | EDPHYS ---
Physician Documentation [facility] Name: Ana Barroso Age: 22 yrs Sex: Female : 2000 Arrival Date: 06/28/2023 Time: 03:18 Bed 14 Private MD: ED Physician Walter Muñoz HPI: 06/28 04:01 This 22 yrs old Female presents to ER via Unassigned with complaints of Pain ms3 With Urination. 04:01 22-year-old female with no past medical history presents for dysuria. Patient states ms3 she was diagnosed with a urinary tract infection 1 month ago and is having similar symptoms. Patient states her discomfort is a 5/10. Patient denies nausea, vomiting, fevers. Patient states she is 24 weeks .. Historical: - Allergies: 04:04 No Known Allergies; ha1 - Home Meds: 04:04 Aspirin Oral [Active]; Metformin Oral [Active]; ha1 - PMHx: 04:04 DM; ha1 - Immunization history:: Adult Immunizations up to date. - Social history:: Smoking status: Patient denies any tobacco usage or history of. ROS: 04:01 Positive for burning with urination, ms3 04:01 Constitutional: Negative for fever, and chills. 04:01 Respiratory: Negative for shortness of breath, cough, wheezing, and pleuritic chest pain, Abdomen/GI: Negative for abdominal pain, nausea, vomiting, diarrhea, and constipation, MS/Extremity: Negative for injury and deformity, Skin: Negative for injury, rash, and discoloration, 04:01 All other systems are negative, Exam: 04:01 Constitutional: This is a well developed, well nourished patient who is awake, alert, ms3 and in no acute distress. Neck: Trachea midline, no cervical lymphadenopathy. Supple, full range of motion without nuchal rigidity, or vertebral point tenderness. No Meningismus. Chest/axilla: Normal chest wall appearance and motion. Nontender with no deformity. Cardiovascular: Regular rate and rhythm with a normal S1 and S2. No gallops, murmurs, or rubs. Normal PMI, no JVD. No pulse deficits. Respiratory: Lungs have equal breath sounds bilaterally, clear to auscultation and percussion. No rales, rhonchi or wheezes noted. No increased work of breathing, no retractions or nasal flaring. Abdomen/GI: Soft, non-tender, with normal bowel sounds. No distension or tympany. No guarding or rebound. No evidence of tenderness throughout. Skin: Warm, dry with normal turgor. Normal color with no rashes, no lesions, and no evidence of cellulitis. MS/ Extremity: Pulses equal, no cyanosis. Neurovascular intact. Full, normal range of motion. 04:01 Back: CVA tenderness, is absent, Vital Signs: 03:47 BP 130 / 83; Pulse 84; Resp 16 S; Temp 98.2; Pulse Ox 99% on R/A; Weight 128.82 kg; ha1 Height 5 ft. 2 in. ; Pain 5/10; 05:30 BP 128 / 80; Pulse 80; Resp 17 S; Pulse Ox 99% on R/A; ha1 03:47 Body Mass Index 51.94 (128.82 kg, 157.48 cm) ha1 03:47 Pain Scale: Adult ha1 MDM: 04:01 Patient medically screened. ms3 04:01 Differential diagnosis: urinary tract infection, Dysuria. ms3 05:51 Data reviewed: vital signs, nurses notes, and as a result, I will discharge patient. ms3 Care significantly affected by the following chronic conditions: Diabetes. Counseling: I had a detailed discussion with the patient and/or guardian regarding the historical points, exam findings, and any diagnostic results supporting the discharge/admit diagnosis, lab results, the need for outpatient follow up, to return to the emergency department if symptoms worsen or persist or if there are any questions or concerns that arise at home. Special discussion: I discussed with the patient/guardian in detail that at this point there is no indication for admission to the hospital. It is understood, however, that if the symptoms persist or worsen the patient needs to return immediately for re-evaluation. ED course: Patient states she has positive movement, no loss of fluid, no abdominal pain. Discussed urinalysis results with patient. Patient to follow-up with her financial sales advisor in 2 to 3 days. Patient understands agrees with plan. All questions were answered. Return precautions discussed include fevers, flank pain, worsening symptoms, or any other concerns. On reevaluation patient is alert and oriented x4, no apparent distress, nontoxic-appearing, ambulatory in the emergency department, speaking full sentences. 06/28 03:27 Order name: Urinalysis w/ reflexes; Complete Time: 05:40 ms3 Administered Medications: No medications were administered Disposition Summary: 06/28/23 05:44 Discharge Ordered Notes: Location: Home ms3 Condition: Stable ms3 Diagnosis - Dysuria ms3 - 24 weeks gestation of ms3 Followup: ms3 - With: Private Physician - When: 2 - 3 days - Reason: Recheck today's complaints Discharge Instructions: - Discharge Summary Sheet ms3 - Dysuria ms3 Forms: - Medication Reconciliation Form ms3 - Thank You Letter ms3 - Antibiotic Education ms3 - Prescription Opioid Use ms3 - Patient Portal Instructions ms3 - Leadership Thank You Letter ms3 Signatures: Dispatcher [employer] Walter Zaldivar DO DO ms3 Cleo Johnson, RN RN ha1
[2023-06-28 06:30] VITALS: TEMP 98.2; O2SAT 99
[2023-06-28 06:32] VITALS: BP 128/80
== END 2023-06-28 06:09 | disposition home or self-care (01) ==
LOC: ER 03:18
DX: O26.892 Other specified pregnancy related conditions, second trimester (principal); Z3A.24 24 weeks gestation of pregnancy
CPT/HCPCS: 81001; 99282

== ENCOUNTER 2024-03-04 18:51 | Emergency (ER) | payer OTHER, SELFPAY ==
--- OUTSIDE RECORDS SUMMARY | 2024-03-04 18:57 | XMS REPORT | Continuity of Care Document ---
Author Name Unknown Address [address] [facility]. [address] [place] [address] [facility] thconnect Address [address] [facility] [address] [place] [address] Care Team Providers Care Water Use Inspector Name Role Phone DIANNA BASS Primary Care Physician Unavailab SALLY Colby Attending Clinician UnavailSally Nathan CNM Attending Clinician [phone] DIANNA BASS Attending Clinician Unavailable PETERSON NEVILLE Attending Clinician Unavail able Visit, [facility] Nurse Attending Clinician Unava ilPeterson Rubalcava Attending Clinician + ANGELA LAYTON Attending Clinician Unavailable ANGELA LAYTON Attending Clinician Unavailable SABINA ROSEN Attending Clinician Unavailable Elvi Bone MD Attending Clinician + ELVI BONE Attending Clinician Unav teofilo Bill MD, Young Attending Clinician [phone] Omar Man MD Attending Clinician [phone] Virginia Guidry MD Attending Clinician [phone] Benito Quigley MD Attending Clinician [phone] Doctor Unassigned, [place] Attending Clinician U NIKI Weber Attending Clinician Unavailable Ultrasound, Godfreykaleb Attending Clinician UnavailAngela Leach MD Attending Clinician [phone] Behnia MD, Niki Attending Clinician [phone] Fojt WHCHARBEL, Dano Attending Clinician [phone] NAHID QUARLES Attending Clinician Unavailable Nahid Quarles MD Attending Clinician [phone] Getachew Carrera MD Attending Clinician [phone] GETACHEW CARRERA Attending Clinician Unavailable GETACHEW CARRERA Attending Clinician Unavailable MARGOT MACEDO Attending Clinician Unavailable Risk, Een-Pyjxj-Iw/High Attending Clinician Unav ailable Hellen WHCNMargot Soler Attending Clinician [phone] Provider, Michael-Rmchp Temp Attending Clinician Violetta vailable Lab, Ang-Rmchp Attending Clinician Unavailable Elvi Bone MD Admitting Clinician + ELVI BONE Admitting Clinician Unav ailable NAHID QUARLES Admitting Clinician Unavailable Nahid Quarles MD Admitting Clinician [phone] Payers Payer Name Policy Type Policy Number Effective Date Expirati on Date Source [facility] [id number] 2023 00:00:00 Problems Condition Name Condition Details Condition Category Status Onset Date Resolution Date Last Treatment Date Treating Clinician Comments Source Need for HPV vaccinatio n Need for HPV vaccinatio n Disease Active 02-02 00:00: 00 [facility] Gestationa l hypertensi on Gestationa l hypertensi on Disease Active 10-28 00:00: 00 [facility] Elevated blood pressure reading without diagnosis of hypertensi on Elevated blood pressure reading without diagnosis of hypertensi on Disease Active 2022-10 00:00: 00 [facility] 38 weeks gestation of 38 weeks gestation of Disease Active 2022-10 00:00: 00 [facility] Morbid obesity with body mass index of 50 or higher Morbid obesity with body mass index of 50 or higher Disease Active 2022-10 00:00: 00 [facility] History of bilateral tubal ligation History of bilateral tubal ligation Disease Active 2022-10 00:00: 00 [facility] Uterine leiomyoma, unspecifie d location Uterine leiomyoma, unspecifie d location Disease Active 05-01 00:00: 00 [facility] growth restrictio n antepartum growth restrictio n antepartum Disease Active 05-01 00:00: 00 [facility] History of abnormal cervical Pap smear History of abnormal cervical Pap smear Disease Active 04-23 00:00: 00 Overview: Formattin g of this note might be different from the original. ASCUS no HPV, see external [id number] negative PAP, repeat 1 year [facility] Atypical squamous cells of undetermin ed significan ce (ASCUS) on Papanicola ou smear of cervix Atypical squamous cells of undetermin ed significan ce (ASCUS) on Papanicola ou smear of cervix Disease Active 04-23 00:00: 00 Overview: Formattin g of this note might be different from the original. 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 Failed 1 hr gtt [facility] GBS (group B streptococ cus) UTI complicati ng GBS (group B streptococ cus) UTI complicati ng Disease Active 03-14 00:00: 00 [facility] Supervisio n of high-risk Supervisio n of high-risk Disease Active 03-12 00:00: 00 [facility] Obesity in Obesity in Disease Active 03-12 00:00: 00 [facility] Allergies, Adverse Reactions, Alerts Allergy Name Allergy Type Status Severity Reaction(s) Onset Date Inactive Date Treating Clinician Comments Source NO KNOWN ALLERGIE S Drug Class Active [facility] Social History Social Habit Start Date Stop Date Quantity Comments Source ASSERTION 2023-01-21 00:00:00 [facility] Gender identity [facility] intake 2024-02-03 00:00:00 2024-02-03 00:00:00 Current drinker of alcohol (finding) [facility] Alcohol Comment 2024-02-03 00:00:00 2024-02-03 00:00:00 socially [facility] Alcoholic beverage intake 2024-02-03 00:00:00 2024-02-03 00:00:00 Current drinker of alcohol (finding) [facility] History of Social function 2024-02-03 00:00:00 2024-02-03 00:00:00 [facility] Tobacco use and exposure 2023-10-04 00:00:00 2023-10-04 00:00:00 Smokeless tobacco non-user [facility] Sex assigned at 2000 00:00:00 2000 00:00:00 [facility] Smoking Status Start Date Stop Date Source Tobacco smoking consumption unknown [facility] Never smoked tobacco [facility] Medications Ordered Medication Name Filled Medication Name Start Date Stop Date Current Medication? Ordering Clinician Indication Dosage Frequency Signature (SIG) Comments Components Source SERTraline (ZOLOFT) 100 mg tablet 02-02 00:00: 00 Yes [id number] 100mg Take 1 tablet by mouth daily. [facility] HYDROcodone -acetaminop hen (NORCO 5) 5-325 mg tablet 1 tablet 2022-10 04:30: 08 Yes 1{tbl} 1 tablet, Oral, Q6HPRN, Starting on 10/04/23 at 2230, Until Discontinu ed, Routine, Pain (scale 7-10) [facility] rho(D) immune globulin (RHOGAM) syringe 300 mcg 2022-10 04:21: 00 Yes 300ug 300 mcg, Intramuscu lar, ONCE, For 1 dose, Conditiona l, Routine [facility] ibuprofen (IBU) tablet 600 mg 2022-10 04:20: 56 Yes 600mg 600 mg, Oral, Q6HPRN, Starting on 10/04/23 at 2220, Until Discontinu ed, Routine, Pain (scale 4-6) [facility] acetaminoph en (TYLENOL) tablet 650 mg 2022-10 04:20: 56 Yes 650mg 650 mg, Oral, Q6HPRN, Starting on 10/04/23 at 2220, Until Discontinu ed, Routine, Pain (scale 1-3) [facility] diphenhydrA MINE (BENADRYL) tablet 25 mg 2022-10 04:20: 56 Yes 25mg 25 mg, Oral, Q6HPRN, Starting on 10/04/23 at 2220, Until Discontinu ed, Routine, Sleep, Itching [facility] ondansetron (ZOFRAN (PF)) injection 4 mg 2022-10 04:20: 56 Yes 4mg 4 mg, Slow IV Push, Q8HPRN, Starting on 10/04/23 at 2220, Until Discontinu ed, Routine, Nausea and Vomiting (N/V) [facility] simethicone (GAS RELIEF (SIMETHICON E)) chewable tablet 160 mg 2022-10 04:20: 56 Yes 160mg 160 mg, Oral, PC+HSPRN, Starting on 10/04/23 at 2220, Until Discontinu ed, Routine, Gas [facility] docusate (COLACE) capsule 200 mg 2022-10 04:20: 56 Yes 200mg 200 mg, Oral, QDAILYPRN, Starting on 10/04/23 at 2220, Until Discontinu ed, Routine, Constipati on [facility] magnesium hydroxide (MILK OF MAGNESIA) 400 mg/5 mL suspension 30 mL 2022-10 04:20: 56 Yes 30mL 30 mL, Oral, QDAILYPRN, Starting on 10/04/23 at 2220, Until Discontinu ed, Routine, Constipati on [facility] benzocaine- menthol (DERMOPLAST ) 20-0.5 % topical spray 2022-10 04:20: 56 Yes Topical, PRN, Starting on 10/04/23 at 2220, Until Discontinu ed, Routine, Perineum discomfort [facility] ketorolac (TORADOL) injection 30 mg 2022-10 01:31: 34 10-05 01:45 :00 No 30mg 30 mg, Slow IV Push, PRN, 1 dose, Starting on 10/04/23 at 1931, Until 10/06/23 at 2359, Routine, Pain (scale 4-6) [facility] naloxone (NARCAN) injection 0.4 mg 2022-10 01:31: 03 10-07 01:30 :03 No .4mg 0.4 mg, Slow IV Push, PRN - SEE INSTRUCTIO NS, Starting on 10/04/23 at 1931, Until 10/06/23 at 1930, Routine, Sedation/R espiratory Depression , Analagesia Recovery [facility] sodium citrate-cit apolinar acid (BICITRA) 500-334 mg/5 mL solution 2022-10 00:05: 00 10-05 04:32 :30 No PRN, Starting on 10/04/23 at 1805, Until 10/04/23 at 2232, Routine, Intra-op [facility] vitamin w/FA tablet 2022-10 00:00: 00 02-02 00:00 :00 No [id number] 1{tbl} Take 1 tablet by mouth daily. [facility] docusate 100 mg capsule 2022-10 00:00: 00 02-02 00:00 :00 No [id number] 200mg Take 2 capsules by mouth once daily as needed for Constipati on. [facility] ferrous sulfate 325 mg (65 mg iron) tablet 2022-10 00:00: 00 02-02 00:00 :00 No [id number] 325mg Take 1 tablet by mouth daily. [facility] ibuprofen 600 mg tablet 2022-10 00:00: 00 02-02 00:00 :00 No [id number] 600mg Take 1 tablet by mouth every 6 (six) hours as needed (Pain). Take with food or milk. [facility] acetaminoph en (TYLENOL) 325 mg tablet 2022-10 00:00: 00 02-02 00:00 :00 No [id number] 650mg Take 2 tablets by mouth every 6 (six) hours as needed for Pain (scale 1-3) or Pain (scale 4-6). [facility] lactated ringers IV infusion 1,000 mL 2022-10 22:30: 00 10-05 02:35 :10 No 1000mL at 125 mL/hr, 1,000 mL, IV Infusion, ONCE, 1 dose, On 10/04/23 at 1630, SANNA [facility] ibuprofen (IBU) tablet 600 mg 2022-10 22:28: 09 Yes 600mg 600 mg, Oral, Q6HPRN, Starting on 10/04/23 at 1628, Until Discontinu ed, Routine, Pain (scale 1-3) [facility] insulin regular human (HUMULIN R) 100 Units in NaCl 0.9% (NS) 100 mL infusion 2022-10 21:23: 51 10-05 04:33 :23 No 1U/h 1 Units/hr (1 mL/hr), IV Infusion, TITRATE, Parameters in Admin. Instr., Starting on 10/04/23 at 1523
Pr ior to connecting infusion to peripheral line, waste a minimum of 25 mL to allow maximum adherence to the plastic tubing.&nb sp; D eliver via volume controlled infusion pump with buretrol at the most proximal port. Add 1 hours volume to the buretrol each hour and infuse.&am p;nbsp;&nb sp; & nbsp;1. Glucose < 60 and patient asymptomat ic - Turn off insulin and Notify Appeals Referee.&n bsp;2. Glucose < 60 and patient symptomati c - Turn off insulin, Notify Appeals Referee, consider intramuscu lar glucagon, oral glucose therapy if not otherwise contraindi cated. 3. Glucose > 60 < 80 and patient is symptomati c - &nb sp;Turn off insulin, Notify Appeals Referee for dextrose fluid rate increase. &nbs p;Insulin drip protocol: &nbs p;Blood glucose (mg/dL) Insulin dosage (units/hr) &nbs p; IVF (125ml/hr) < 100 & nbsp;&nbsp ; &nb sp; & nbsp;&nbsp ; 0 &nb sp; & nbsp;&nbsp ; &nb sp; & nbsp;&nbsp ; D5LR 100-140&nb sp; & nbsp;&nbsp ; 1 &nb sp; & nbsp;&nbsp ; &nb sp; & nbsp;&nbsp ; D5LR 141-180&nb sp; & nbsp;&nbsp ; 1.5 & nbsp;&nbsp ; &nb sp; & nbsp;&nbsp ; LR 181-220&nb sp; & nbsp;&nbsp ; 2 &nb sp; & nbsp;&nbsp ; &nb sp; & nbsp;&nbsp ; LR 220-260&nb sp; 2.5 & nbsp;&nbsp ; &nb sp; LR 260-300&nb sp; & nbsp;&nbsp ; 3.0 & nbsp;&nbsp ; &nb sp; & nbsp;&nbsp ; LR >300&n bsp; &nbs p; &n bsp; &nbs p; 3.5 & nbsp;&nbsp ; &nb sp; & nbsp;&nbsp ; LR
[facility] ropivacaine 0.2 % (NAROPIN (PF)) epidural infusion 2022-10 16:22: 00 10-05 03:15 :10 No Epidural, ONCE INTRA PROCEDURE, Starting on 10/04/23 at 1022, Until Discontinu ed, Routine, Intra-op [facility] lactated ringers IV infusion 500 mL 2022-10 16:20: 01 Yes 500mL at 999 mL/hr, 500 mL, IV Infusion, PRN - SEE INSTRUCTIO NS, 1 dose, Starting on 10/04/23 at 1020, Until Discontinu ed, Routine [facility] sodium citrate-cit apolinar acid (BICITRA) 500-334 mg/5 mL solution 30 mL 2022-10 16:20: 01 10-05 00:04 :00 No 30mL 30 mL, Oral, PRE-PROCED URE ONCE, 1 dose, Starting on 10/04/23 at 1020, Until Discontinu ed, Routine, Surgery/Pr ocedure [facility] lidocaine-e pinephrine (XYLOCAINE W/EPINEPHRI NE) 1.5 %-1:200,000 injection 2022-10 16:18: 00 10-05 03:15 :10 No Intraderma l, ONCE INTRA PROCEDURE, Starting on 10/04/23 at 1018, Until Discontinu ed, Routine, Intra-op [facility] oxytocin (PITOCIN) 30 units in NS 500 mL IV infusion 2022-10 10:09: 03 10-05 04:32 :30 No 2mU/min at 2-40 mL/hr, IV Infusion, TITRATE, Starting on 10/04/23 at 0409, Until 10/04/23 at 2232, SANNA [facility] penicillin g potassium 5 Million Units in NaCl 0.9% (NS) 100 mL MINI-BAG 2022-10 10:00: 00 10-04 11:01 :00 No 510 5 Million Units, IV Piggyback, ONCE, 1 dose, On 10/04/23 at 0400, Administer over 60 Minutes, 100 mL
Reas on for Anti-Infec tive: Documented Infection< br>Documen [place]ol[place] Infection Site: Pelvic
Duration of Therapy: Other (see Comments) [facility] morpHINE (4 mg/mL) injection 4 mg 2022-10 02:15: 00 10-04 01:42 :00 No 4mg 4 mg, Slow IV Push, ONCE, 1 dose, On Fri10/03/23 at 2015, Routine [facility] glucagon (GLUCAGEN DIAGNOSTIC KIT) injection 1 mg 2022-10 20:56: 49 Yes 1mg 1 mg, Intramuscu lar, PRN, Starting on Fri10/03/23 at 1456, Until Discontinu ed, SANNA, Blood Glucose < or = 70 mg/dL and patient is NPO, unable to swallow or has mental changes. [facility] dextrose 50 % in water (D50W) injection 25 mL 2022-10 20:56: 49 Yes 25mL 25 mL, Slow IV Push, PRN, Starting on Fri10/03/23 at 1456, Until Discontinu ed, SANNA, Blood Glucose < or = 70 mg/dL and patient is NPO, unable to swallow or has mental status changes. [facility] lidocaine 1% (XYLOCAINE) 10 mg/mL (1 %) injection 50 mL 2022-10 20:54: 51 Yes 50mL 50 mL, Infiltrati on, PRN - SEE INSTRUCTIO NS, Starting on Fri10/03/23 at 1454, Until Discontinu ed, Routine, Local anesthesia , For laceration repair only as a local anesthetic as indicated. [facility] lidocaine 1% (PF) (XYLOCAINE) injection 0.3 mL 2022-10 20:54: 51 Yes .3mL 0.3 mL, Infiltrati on, PRN - SEE INSTRUCTIO NS, Starting on Fri10/03/23 at 1454, Until Discontinu ed, Routine, Local anesthesia , For IV line placement only as a local anesthetic . [facility] lactated ringers IV infusion 500 mL 2022-10 20:54: 51 Yes 500mL at 999 mL/hr, 500 mL, IV Infusion, PRN - SEE INSTRUCTIO NS, Starting on Fri10/03/23 at 1454, Until Discontinu ed, Routine [facility] D5W-LR IV infusion 1,000 mL 2022-10 20:54: 51 Yes 1000mL at 1-125 mL/hr, IV Infusion, TITRATE, Starting on Fri10/03/23 at 1454, Until Discontinu ed, Routine [facility] sodium citrate-cit apolinar acid (BICITRA) 500-334 mg/5 mL solution 30 mL 2022-10 20:54: 51 10-04 16:07 :00 No 30mL 30 mL, Oral, PRE-PROCED URE ONCE, 1 dose, Starting on Fri10/03/23 at 1454, Until Discontinu ed, Routine, Surgery/Pr ocedure [facility] metFORMIN 500 mg tablet 2022-10 00:00: 00 10-05 00:00 :00 No [id number] 1000mg Take 2 tablets by mouth with evening meal. [facility] blood sugar diagnostic (FREESTYLE LITE STRIPS) strip 2022-10 00:00: 00 10-05 00:00 :00 No [id number] Check blood glucose 4x daily [facility] Blood-Gluco se Meter (FREESTYLE LITE METER) Kit 2022-10 00:00: 00 10-05 00:00 :00 No [id number] Check blood glucose 4x daily [facility] lancets (FREESTYLE LANCETS) 28 gauge Misc 2022-10 00:00: 00 10-05 00:00 :00 No [id number] Check glucose 4x daily [facility] PNV 67-iron ps-folate no.1-dha (VITAFOL ULTRA) 29 mg iron- 1 mg-200 mg Cap 2022-10 00:00: 00 10-05 00:00 :00 No [id number] 1{capsu le} Take 1 capsule by mouth daily. [facility] cephALEXin (KEFLEX) 500 mg capsule 2022-10 00:00: 00 10-05 00:00 :00 No [id number] 500mg Take 1 capsule by mouth daily. Until delivery [facility] cephALEXin (KEFLEX) 500 mg capsule 2022-10 0-30 00:00: 00 08-15 05:59 :00 No [id number] 500mg Take 1 capsule by mouth 4 (four) times daily for 10 days. [facility] metFORMIN 500 mg tablet 2022-10 0-11 00:00: 00 08-22 00:00 :00 No [id number] 500mg Take 1 tablet by mouth with evening meal. [facility] ampicillin 500 mg capsule 9-28 00:00: 00 07-14 04:59 :00 No [id number] 500mg Take 1 capsule by mouth every 6 (six) hours for 10 days. [facility] proMETHazin e 12.5 mg tablet 8-03 00:00: 00 10-05 00:00 :00 No [id number] 12.5mg Take 1 tablet by mouth every 6 (six) hours as needed for Nausea and Vomiting (N/V) (Pt is ) for up to 60 doses. [facility] aspirin 81 mg EC tablet 8-03 00:00: 00 10-05 00:00 :00 No [id number] 81mg Take 1 tablet by mouth daily for 150 days. [facility] metFORMIN 500 mg tablet 7-13 00:00: 00 07-16 00:00 :00 No [id number] 500mg Take 1 tablet by mouth with evening meal for 90 days. [facility] ampicillin 500 mg capsule 7-12 00:00: 00 04-27 04:59 :00 No [id number] 500mg Take 1 capsule by mouth 4 (four) times daily for 10 days. [facility] PNV 67-iron ps-folate no.1-dha (VITAFOL ULTRA) 29 mg iron- 1 mg-200 mg Cap 6-26 00:00: 00 Yes [id number] 1{capsu le} Take 1 capsule by mouth daily. [facility] PNV 67-iron ps-folate no.1-dha (VITAFOL ULTRA) 29 mg iron- 1 mg-200 mg Cap 03-31 00:00: 00 08-19 00:00 :00 No [id number] 1{capsu le} Take 1 capsule by mouth daily. [facility] Blood-Gluco se Meter (FREESTYLE LITE METER) Kit 03-14 00:00: 00 Yes [id number] Check blood glucose 4x daily [facility] blood sugar diagnostic (FREESTYLE LITE STRIPS) strip 03-14 00:00: 00 Yes [id number] Check blood glucose 4x daily [facility] lancets (FREESTYLE LANCETS) 28 gauge Misc 03-14 00:00: 00 08-19 00:00 :00 No [id number] Check glucose 4x daily [facility] Blood-Gluco se Meter (FREESTYLE LITE METER) Kit 03-14 00:00: 00 08-19 00:00 :00 No [id number] Check blood glucose 4x daily [facility] blood sugar diagnostic (FREESTYLE LITE STRIPS) strip 03-14 00:00: 00 08-19 00:00 :00 No [id number] Check blood glucose 4x daily [facility] ampicillin 500 mg capsule 03-14 00:00: 00 03-25 04:59 :00 No [id number] 500mg Take 1 capsule by mouth 4 (four) times daily for 10 days. [facility] Immunizations Ordered Immunization Name Filled Immunization Name Date Status Comments Source TDAP Unknown Completed [facility] Influenza Virus Vaccine Quad IM, Preserv and ABX Free 6 MO-64 YRS (FLUCELVAX) Unknown Completed [facility] TDAP Unknown Completed [facility] Influenza Virus Vaccine Quad IM, Preserv and ABX Free 6 MO-64 YRS (FLUCELVAX) Unknown Completed [facility] TDAP Unknown Completed [facility] Influenza Virus Vaccine Quad IM, Preserv and ABX Free 6 MO-64 YRS (FLUCELVAX) Unknown Completed [facility] TDAP Unknown Completed [facility] Influenza Virus Vaccine Quad IM, Preserv and ABX Free 6 MO-64 YRS (FLUCELVAX) Unknown Completed [facility] TDAP Unknown Completed [facility] Influenza Virus Vaccine Quad IM, Preserv and ABX Free 6 MO-64 YRS (FLUCELVAX) Unknown Completed [facility] TDAP Unknown Completed [facility] Influenza Virus Vaccine Quad IM, Preserv and ABX Free 6 MO-64 YRS (FLUCELVAX) Unknown Completed [facility] TDAP Unknown Completed [facility] Influenza Virus Vaccine Quad IM, Preserv and ABX Free 6 MO-64 YRS (FLUCELVAX) Unknown Completed [facility] TDAP Unknown Completed [facility] Influenza Virus Vaccine Quad IM, Preserv and ABX Free 6 MO-64 YRS (FLUCELVAX) Unknown Completed [facility] TDAP Unknown Completed [facility] Influenza Virus Vaccine Quad IM, Preserv and ABX Free 6 MO-64 YRS (FLUCELVAX) Unknown Completed [facility] TDAP Unknown Completed [facility] Influenza Virus Vaccine Quad IM, Preserv and ABX Free 6 MO-64 YRS (FLUCELVAX) Unknown Completed [facility] TDAP Unknown Completed [facility] Influenza Virus Vaccine Quad IM, Preserv and ABX Free 6 MO-64 YRS (FLUCELVAX) Unknown Completed [facility] TDAP Unknown Completed [facility] Influenza Virus Vaccine Quad IM, Preserv and ABX Free 6 MO-64 YRS (FLUCELVAX) Unknown Completed [facility] TDAP Unknown Completed [facility] Influenza Virus Vaccine Quad IM, Preserv and ABX Free 6 MO-64 YRS (FLUCELVAX) Unknown Completed [facility] TDAP Unknown Completed [facility] Influenza Virus Vaccine Quad IM, Preserv and ABX Free 6 MO-64 YRS (FLUCELVAX) Unknown Completed [facility] TDAP Unknown Completed [facility] Influenza Virus Vaccine Quad IM, Preserv and ABX Free 6 MO-64 YRS (FLUCELVAX) Unknown Completed [facility] TDAP Unknown Completed [facility] Influenza Virus Vaccine Quad IM, Preserv and ABX Free 6 MO-64 YRS (FLUCELVAX) Unknown Completed [facility] TDAP Unknown Completed [facility] Influenza Virus Vaccine Quad IM, Preserv and ABX Free 6 MO-64 YRS (FLUCELVAX) Unknown Completed [facility] TDAP Unknown Completed [facility] Influenza Virus Vaccine Quad IM, Preserv and ABX Free 6 MO-64 YRS (FLUCELVAX) Unknown Completed [facility] TDAP Unknown Completed [facility] Influenza Virus Vaccine Quad IM, Preserv and ABX Free 6 MO-64 YRS (FLUCELVAX) Unknown Completed [facility] TDAP Unknown Completed [facility] Influenza Virus Vaccine Quad IM, Preserv and ABX Free 6 MO-64 YRS (FLUCELVAX) Unknown Completed [facility] TDAP Unknown Completed [facility] HPV9 Unknown Completed [facility] Influenza Virus Vaccine Quad IM, Preserv and ABX Free 6 MO-64 YRS (FLUCELVAX) Unknown Completed [facility] TDAP Unknown Completed [facility] Influenza Virus Vaccine Quad IM, Preserv and ABX Free 6 MO-64 YRS (FLUCELVAX) Unknown Completed [facility] TDAP Unknown Completed [facility] HPV9 Unknown Completed [facility] Influenza Virus Vaccine Quad IM, Preserv and ABX Free 6 MO-64 YRS (FLUCELVAX) Unknown Completed [facility] TDAP Unknown Completed [facility] Influenza Virus Vaccine Quad IM, Preserv and ABX Free 6 MO-64 YRS (FLUCELVAX) Unknown Completed [facility] TDAP Unknown Completed [facility] HPV9 Unknown Completed [facility] Influenza Virus Vaccine Quad IM, Preserv and ABX Free 6 MO-64 YRS (FLUCELVAX) Unknown Completed [facility] TDAP Unknown Completed [facility] HPV9 Unknown Completed [facility] Influenza Virus Vaccine Quad IM, Preserv and ABX Free 6 MO-64 YRS (FLUCELVAX) Unknown Completed [facility] TDAP Unknown Completed [facility] HPV9 Unknown Completed [facility] HPV9 Unknown Completed [facility] Influenza Virus Vaccine Quad IM, Preserv and ABX Free 6 MO-64 YRS (FLUCELVAX) Unknown Completed [facility] TDAP Unknown Completed [facility] HPV9 Unknown Completed [facility] HPV9 Unknown Completed [facility] Influenza Virus Vaccine Quad IM, Preserv and ABX Free 6 MO-64 YRS (FLUCELVAX) Unknown Completed [facility] TDAP Unknown Completed [facility] HPV9 Unknown Completed [facility] HPV9 Unknown Completed [facility] Influenza Virus Vaccine Quad IM, Preserv and ABX Free 6 MO-64 YRS (FLUCELVAX) Unknown Completed [facility] TDAP Unknown Completed [facility] Influenza Virus Vaccine Quad IM, Preserv and ABX Free 6 MO-64 YRS (FLUCELVAX) Unknown Completed [facility] TDAP Unknown Completed [facility] Influenza Virus Vaccine Quad IM, Preserv and ABX Free 6 MO-64 YRS (FLUCELVAX) Unknown Completed [facility] TDAP Unknown Completed [facility] Influenza Virus Vaccine Quad IM, Preserv and ABX Free 6 MO-64 YRS (FLUCELVAX) Unknown Completed [facility] TDAP Unknown Completed [facility] Influenza Virus Vaccine Quad IM, Preserv and ABX Free 6 MO-64 YRS (FLUCELVAX) Unknown Completed [facility] TDAP Unknown Completed [facility] Influenza Virus Vaccine Quad IM, Preserv and ABX Free 6 MO-64 YRS (FLUCELVAX) Unknown Completed [facility] TDAP Unknown Completed [facility] Influenza Virus Vaccine Quad IM, Preserv and ABX Free 6 MO-64 YRS (FLUCELVAX) Unknown Completed [facility] TDAP Unknown Completed [facility] Influenza Virus Vaccine Quad IM, Preserv and ABX Free 6 MO-64 YRS (FLUCELVAX) Unknown Completed [facility] TDAP Unknown Completed [facility] Influenza Virus Vaccine Quad IM, Preserv and ABX Free 6 MO-64 YRS (FLUCELVAX) Unknown Completed [facility] TDAP Unknown Completed [facility] Influenza Virus Vaccine Quad IM, Preserv and ABX Free 6 MO-64 YRS (FLUCELVAX) Unknown Completed [facility] TDAP Unknown Completed [facility] Influenza Virus Vaccine Quad IM, Preserv and ABX Free 6 MO-64 YRS (FLUCELVAX) Unknown Completed [facility] TDAP Unknown Completed [facility] Influenza Virus Vaccine Quad IM, Preserv and ABX Free 6 MO-64 YRS (FLUCELVAX) Unknown Completed [facility] TDAP Unknown Completed [facility] Influenza Virus Vaccine Quad IM, Preserv and ABX Free 6 MO-64 YRS (FLUCELVAX) Unknown Completed [facility] TDAP Unknown Completed [facility] Influenza Virus Vaccine Quad IM, Preserv and ABX Free 6 MO-64 YRS (FLUCELVAX) Unknown Completed [facility] TDAP Unknown Completed [facility] Influenza Virus Vaccine Quad IM, Preserv and ABX Free 6 MO-64 YRS (FLUCELVAX) Unknown Completed [facility] TDAP Unknown Completed [facility] Influenza Virus Vaccine Quad IM, Preserv and ABX Free 6 MO-64 YRS (FLUCELVAX) Unknown Completed [facility] TDAP Unknown Completed [facility] Influenza Virus Vaccine Quad IM, Preserv and ABX Free 6 MO-64 YRS (FLUCELVAX) Unknown Completed [facility] TDAP Unknown Completed [facility] Influenza Virus Vaccine Quad IM, Preserv and ABX Free 6 MO-64 YRS (FLUCELVAX) Unknown Completed [facility] Vital Signs Vital Name Observation Time Observation Value Comments S ource Systolic blood pressure 2024-02-03 15:33:00 126 mm[Hg] [facility] Diastolic blood pressure 2024-02-03 15:33:00 75 mm[Hg] [facility] Heart rate 2024-02-03 15:33:00 66 /min [facility] Body temperature 2024-02-03 15:33:00 35.44 Ledy [facility] Respiratory rate 2024-02-03 15:33:00 18 /min [facility] Body height 2024-02-03 15:33:00 157.5 cm [facility] Body weight 2024-02-03 15:33:00 133.63 kg [facility] BMI 2024-02-03 15:33:00 53.88 kg/m2 [facility] Systolic blood pressure 2023-10-28 22:01:00 119 mm[Hg] [facility] Diastolic blood pressure 2023-10-28 22:01:00 81 mm[Hg] [facility] Heart rate 2023-10-28 22:01:00 73 /min [facility] Body temperature 2023-10-28 22:01:00 35.61 Ledy [facility] Respiratory rate 2023-10-28 22:01:00 18 /min [facility] Body height 2023-10-28 22:01:00 157.5 cm [facility] Body weight 2023-10-28 22:01:00 126.27 kg [facility] BMI 2023-10-28 22:01:00 50.92 kg/m2 [facility] Systolic blood pressure 2023-10-14 22:13:00 135 mm[Hg] [facility] Diastolic blood pressure 2023-10-14 22:13:00 88 mm[Hg] [facility] Heart rate 2023-10-14 22:13:00 88 /min [facility] Body temperature 2023-10-14 22:13:00 36.56 Ledy [facility] Respiratory rate 2023-10-14 22:13:00 18 /min [facility] Body weight 2023-10-14 22:13:00 128.141 kg [facility] BMI 2023-10-14 22:13:00 50.06 kg/m2 [facility] Systolic blood pressure 2023-10-05 21:59:00 112 mm[Hg] [facility] Diastolic blood pressure 2023-10-05 21:59:00 69 mm[Hg] [facility] Heart rate 2023-10-05 21:59:00 90 /min [facility] Body temperature 2023-10-05 21:59:00 36.5 Ledy [facility] Respiratory rate 2023-10-05 21:59:00 18 /min [facility] Oxygen saturation in Arterial blood by Pulse oximetry 2023-10-05 21:59:00 97 /min [facility] Body height 2023-10-03 21:15:00 160 cm [facility] Body weight 2023-10-03 21:15:00 135.172 kg [facility] BMI 2023-10-03 21:15:00 52.80 kg/m2 [facility] Systolic blood pressure 2023-10-05 01:45:00 129 mm[Hg] [facility] Diastolic blood pressure 2023-10-05 01:45:00 70 mm[Hg] [facility] Heart rate 2023-10-05 01:45:00 72 [facility] Respiratory rate 2023-10-05 01:45:00 19 /min [facility] Oxygen saturation in Arterial blood by Pulse oximetry 2023-10-05 01:45:00 98 /min [facility] Body temperature 2023-10-05 01:30:00 36.83 Ledy [facility] Body height 2023-10-03 21:15:00 160 cm [facility] Body weight 2023-10-03 21:15:00 135.172 kg [facility] BMI 2023-10-03 21:15:00 52.80 kg/m2 [facility] Systolic blood pressure 2023-10-03 15:21:00 141 mm[Hg] [facility] Diastolic blood pressure 2023-10-03 15:21:00 93 mm[Hg] [facility] Heart rate 2023-10-03 15:21:00 107 /min [facility] Body temperature 2023-10-03 15:20:00 35.89 Ledy [facility] Respiratory rate 2023-10-03 15:20:00 20 /min [facility] Body height 2023-10-03 15:20:00 160 cm [facility] Body weight 2023-10-03 15:20:00 134.378 kg [facility] BMI 2023-10-03 15:20:00 52.48 kg/m2 [facility] Systolic blood pressure 2023-10-01 19:12:00 131 mm[Hg] [facility] Diastolic blood pressure 2023-10-01 19:12:00 83 mm[Hg] [facility] Heart rate 2023-10-01 19:12:00 82 /min [facility] Body temperature 2023-10-01 19:12:00 35.78 Ledy [facility] Respiratory rate 2023-10-01 19:12:00 18 /min [facility] Body height 2023-10-01 19:12:00 160 cm [facility] Body weight 2023-10-01 19:12:00 135.172 kg [facility] BMI 2023-10-01 19:12:00 52.79 kg/m2 [facility] Systolic blood pressure 2023-09-26 19:13:00 129 mm[Hg] [facility] Diastolic blood pressure 2023-09-26 19:13:00 84 mm[Hg] [facility] Heart rate 2023-09-26 19:13:00 101 /min [facility] Body temperature 2023-09-26 19:13:00 35.5 Ledy [facility] Respiratory rate 2023-09-26 19:13:00 18 /min [facility] Body height 2023-09-26 19:13:00 160 cm [facility] Body weight 2023-09-26 19:13:00 134.219 kg [facility] BMI 2023-09-26 19:13:00 52.42 kg/m2 [facility] Systolic blood pressure 2023-09-23 19:20:00 122 mm[Hg] [facility] Diastolic blood pressure 2023-09-23 19:20:00 82 mm[Hg] [facility] Heart rate 2023-09-23 19:20:00 110 /min [facility] Body temperature 2023-09-23 19:20:00 35.56 Ledy [facility] Respiratory rate 2023-09-23 19:20:00 20 /min [facility] Body height 2023-09-23 19:20:00 160 [facility] 2023-09-23 19:20:00 133.499 kg [facility] BMI 2023-09-23 19:20:00 52.14 kg/m2 [facility] Systolic blood pressure 2023-09-19 20:41:00 132 mm[Hg] [facility] Diastolic blood pressure 2023-09-19 20:41:00 83 mm[Hg] [facility] Heart rate 2023-09-19 20:41:00 76 /min [facility] Body temperature 2023-09-19 20:41:00 35.61 Ledy [facility] Respiratory rate 2023-09-19 20:41:00 18 /min [facility] Body height 2023-09-19 20:41:00 160 cm [facility] Body weight 2023-09-19 20:41:00 132.995 kg [facility] BMI 2023-09-19 20:41:00 51.94 kg/m2 [facility] Systolic blood pressure 2023-09-16 19:32:00 122 mm[Hg] [facility] Diastolic blood pressure 2023-09-16 19:32:00 75 mm[Hg] [facility] Heart rate 2023-09-16 19:32:00 75 /min [facility] Body temperature 2023-09-16 19:32:00 36.11 Ledy [facility] Respiratory rate 2023-09-16 19:32:00 18 /min [facility] Body height 2023-09-16 19:32:00 160 cm [facility] Body weight 2023-09-16 19:32:00 132.632 kg [facility] BMI 2023-09-16 19:32:00 51.80 kg/m2 [facility] Systolic blood pressure 2023-09-09 18:56:00 133 mm[Hg] [facility] Diastolic blood pressure 2023-09-09 18:56:00 85 mm[Hg] [facility] Heart rate 2023-09-09 18:56:00 82 /min [facility] Body temperature 2023-09-09 18:56:00 36.61 Ledy [facility] Respiratory rate 2023-09-09 18:56:00 20 /min [facility] Body height 2023-09-09 18:56:00 160 cm [facility] Body weight 2023-09-09 18:56:00 132.087 kg [facility] BMI 2023-09-09 18:56:00 51.58 kg/m2 [facility] Systolic blood pressure 2023-09-05 18:49:00 126 mm[Hg] [facility] Diastolic blood pressure 2023-09-05 18:49:00 85 mm[Hg] [facility] Heart rate 2023-09-05 18:49:00 105 /min [facility] Body temperature 2023-09-05 18:49:00 35.06 Ledy [facility] Respiratory rate 2023-09-05 18:49:00 18 /min [facility] Body height 2023-09-05 18:49:00 160 cm [facility] Body weight 2023-09-05 18:49:00 131.997 kg [facility] BMI 2023-09-05 18:49:00 51.55 kg/m2 [facility] Systolic blood pressure 2023-09-02 19:23:00 114 mm[Hg] [facility] Diastolic blood pressure 2023-09-02 19:23:00 66 mm[Hg] [facility] Heart rate 2023-09-02 19:23:00 81 /min [facility] Body temperature 2023-09-02 19:23:00 36.11 Ledy [facility] Respiratory rate 2023-09-02 19:23:00 20 /min [facility] Body height 2023-09-02 19:23:00 160 cm [facility] Body weight 2023-09-02 19:23:00 132.053 kg [facility] BMI 2023-09-02 19:23:00 51.57 kg/m2 [facility] Systolic blood pressure 2023-08-26 20:22:00 118 mm[Hg] [facility] Diastolic blood pressure 2023-08-26 20:22:00 73 mm[Hg] [facility] Heart rate 2023-08-26 20:22:00 94 /min [facility] Body temperature 2023-08-26 20:22:00 35.67 Ledy [facility] Respiratory rate 2023-08-26 20:22:00 20 /min [facility] Body height 2023-08-26 20:22:00 160 cm [facility] Body weight 2023-08-26 20:22:00 131.997 kg [facility] BMI 2023-08-26 20:22:00 51.55 kg/m2 [facility] Systolic blood pressure 2023-08-22 19:56:00 129 mm[Hg] [facility] Diastolic blood pressure 2023-08-22 19:56:00 80 mm[Hg] [facility] Heart rate 2023-08-22 19:56:00 83 /min [facility] Body temperature 2023-08-22 19:56:00 35.72 Ledy [facility] Respiratory rate 2023-08-22 19:56:00 18 /min [facility] Body height 2023-08-22 19:56:00 160 cm [facility] Body weight 2023-08-22 19:56:00 130.364 kg [facility] BMI 2023-08-22 19:56:00 50.91 kg/m2 [facility] Systolic blood pressure 2023-08-19 20:36:00 119 mm[Hg] [facility] Diastolic blood pressure 2023-08-19 20:36:00 73 mm[Hg] [facility] Heart rate 2023-08-19 20:36:00 90 /min [facility] Body temperature 2023-08-19 20:36:00 35.94 Ledy [facility] Respiratory rate 2023-08-19 20:36:00 20 /min [facility] Body height 2023-08-19 20:36:00 160 cm [facility] Body weight 2023-08-19 20:36:00 131.26 kg [facility] BMI 2023-08-19 20:36:00 51.26 kg/m2 [facility] Systolic blood pressure 2023-08-18 22:00:00 124 mm[Hg] [facility] Diastolic blood pressure 2023-08-18 22:00:00 66 mm[Hg] [facility] Heart rate 2023-08-18 22:00:00 75 /min [facility] Oxygen saturation in Arterial blood by Pulse oximetry 2023-08-18 22:00:00 99 /min [facility] Body temperature 2023-08-18 18:28:00 36.78 Ledy [facility] Respiratory rate 2023-08-18 18:28:00 18 /min [facility] Body height 2023-08-18 18:28:00 160 cm [facility] Body weight 2023-08-18 18:28:00 131.997 kg [facility] BMI 2023-08-18 18:28:00 51.55 kg/m2 [facility] Systolic blood pressure 2023-08-13 21:52:00 136 mm[Hg] [facility] Diastolic blood pressure 2023-08-13 21:52:00 76 mm[Hg] [facility] Heart rate 2023-08-13 21:52:00 74 /min [facility] Body temperature 2023-08-13 21:52:00 35.83 Ledy [facility] Respiratory rate 2023-08-13 21:52:00 18 /min [facility] Body height 2023-08-13 21:52:00 160 cm [facility] Body weight 2023-08-13 21:52:00 130.727 kg [facility] BMI 2023-08-13 21:52:00 51.05 kg/m2 [facility] Systolic blood pressure 2023-07-30 20:38:00 122 mm[Hg] [facility] Diastolic blood pressure 2023-07-30 20:38:00 69 mm[Hg] [facility] Heart rate 2023-07-30 20:38:00 77 /min [facility] Body temperature 2023-07-30 20:38:00 35.94 Ledy [facility] Respiratory rate 2023-07-30 20:38:00 20 /min [facility] Body height 2023-07-30 20:38:00 160 cm [facility] Body weight 2023-07-30 20:38:00 130.239 kg [facility] BMI 2023-07-30 20:38:00 50.86 kg/m2 [facility] Systolic blood pressure 2023-07-16 20:16:00 107 mm[Hg] [facility] Diastolic blood pressure 2023-07-16 20:16:00 69 mm[Hg] [facility] Heart rate 2023-07-16 20:16:00 96 /min [facility] Body temperature 2023-07-16 20:16:00 36.39 Ledy [facility] Respiratory rate 2023-07-16 20:16:00 18 /min [facility] Body height 2023-07-16 20:16:00 160 cm [facility] Body weight 2023-07-16 20:16:00 131.498 kg [facility] BMI 2023-07-16 20:16:00 51.35 kg/m2 [facility] Systolic blood pressure 2023-07-01 20:27:00 112 mm[Hg] [facility] Diastolic blood pressure 2023-07-01 20:27:00 70 mm[Hg] [facility] Heart rate 2023-07-01 20:27:00 82 /min [facility] Body temperature 2023-07-01 20:27:00 36.33 Ledy [facility] Respiratory rate 2023-07-01 20:27:00 20 /min [facility] Body height 2023-07-01 20:27:00 160 cm [facility] Body weight 2023-07-01 20:27:00 129.502 kg [facility] BMI 2023-07-01 20:27:00 50.57 kg/m2 [facility] Systolic blood pressure 2023-05-28 13:08:00 122 mm[Hg] [facility] Diastolic blood pressure 2023-05-28 13:08:00 74 mm[Hg] [facility] Heart rate 2023-05-28 13:08:00 88 /min [facility] Body temperature 2023-05-28 13:08:00 36.17 Ledy [facility] Respiratory rate 2023-05-28 13:08:00 18 /min [facility] Body height 2023-05-28 13:08:00 160 cm [facility] Body weight 2023-05-28 13:08:00 126.639 kg [facility] BMI 2023-05-28 13:08:00 49.46 kg/m2 [facility] Diastolic blood pressure 2023-05-08 15:31:00 58 mm[Hg] [facility] Heart rate 2023-05-08 15:31:00 81 /min [facility] Body temperature 2023-05-08 15:31:00 36.44 Ledy [facility] Respiratory rate 2023-05-08 15:31:00 17 /min [facility] Body height 2023-05-08 15:31:00 160 cm [facility] Body weight 2023-05-08 15:31:00 125.828 kg [facility] BMI 2023-05-08 15:31:00 49.14 kg/m2 [facility] Systolic blood pressure 2023-05-08 15:31:00 107 mm[Hg] [facility] Systolic blood pressure 2023-04-24 20:42:00 101 mm[Hg] [facility] Diastolic blood pressure 2023-04-24 20:42:00 70 mm[Hg] [facility] Heart rate 2023-04-24 20:42:00 78 /min [facility] Body temperature 2023-04-24 20:42:00 36.56 Ledy [facility] Respiratory rate 2023-04-24 20:42:00 20 /min [facility] Body height 2023-04-24 20:42:00 160 cm [facility] Body weight 2023-04-24 20:42:00 126.417 kg [facility] BMI 2023-04-24 20:42:00 49.37 kg/m2 [facility] Systolic blood pressure 2023-04-17 14:46:00 105 mm[Hg] [facility] Diastolic blood pressure 2023-04-17 14:46:00 66 mm[Hg] [facility] Heart rate 2023-04-17 14:46:00 70 /min [facility] Body temperature 2023-04-17 14:46:00 36.61 Ledy [facility] Respiratory rate 2023-04-17 14:46:00 20 /min [facility] Body height 2023-04-17 14:46:00 160 cm [facility] Body weight 2023-04-17 14:46:00 126.871 kg [facility] BMI 2023-04-17 14:46:00 49.55 kg/m2 [facility] Systolic blood pressure 2023-04-09 13:04:00 125 mm[Hg] [facility] Diastolic blood pressure 2023-04-09 13:04:00 70 mm[Hg] [facility] Heart rate 2023-04-09 13:04:00 74 /min [facility] Body temperature 2023-04-09 13:04:00 36.5 Ledy [facility] Respiratory rate 2023-04-09 13:04:00 20 /min [facility] Body height 2023-04-09 13:04:00 160 cm [facility] Body weight 2023-04-09 13:04:00 125.919 kg [facility] BMI 2023-04-09 13:04:00 49.17 kg/m2 [facility] Systolic blood pressure 2023-03-31 16:01:00 116 mm[Hg] [facility] Diastolic blood pressure 2023-03-31 16:01:00 73 mm[Hg] [facility] Heart rate 2023-03-31 16:01:00 73 /min [facility] Body temperature 2023-03-31 16:01:00 36.72 Ledy [facility] Respiratory rate 2023-03-31 16:01:00 20 /min [facility] Body height 2023-03-31 16:01:00 160 cm [facility] Body weight 2023-03-31 16:01:00 128.935 kg [facility] BMI 2023-03-31 16:01:00 50.35 kg/m2 [facility] Systolic blood pressure 2023-03-17 18:55:00 122 mm[Hg] [facility] Diastolic blood pressure 2023-03-17 18:55:00 73 mm[Hg] [facility] Heart rate 2023-03-17 18:55:00 66 /min [facility] Body temperature 2023-03-17 18:55:00 37.22 Ledy [facility] Respiratory rate 2023-03-17 18:55:00 18 /min [facility] Body weight 2023-03-17 18:55:00 129.774 kg [facility] BMI 2023-03-17 18:55:00 50.68 kg/m2 [facility] Systolic blood pressure 2023-03-12 15:29:00 120 mm[Hg] [facility] Diastolic blood pressure 2023-03-12 15:29:00 74 mm[Hg] [facility] Heart rate 2023-03-12 15:29:00 62 /min [facility] Body temperature 2023-03-12 15:29:00 35.78 Ledy [facility] Respiratory rate 2023-03-12 15:29:00 18 /min [facility] Body height 2023-03-12 15:29:00 160 cm [facility] Body weight 2023-03-12 15:29:00 130.318 kg [facility] BMI 2023-03-12 15:29:00 50.89 kg/m2 [facility] Procedures Procedure Date / Time Performed Performing Clinician Source GARDASIL 9 (HPV 9V) VACCINE 2024-02-03 15:45:58 Peterson Neville [facility] POCT GLUCOSE (AUTOMATED) 2023-10-05 22:15:00 Ome reElvi [facility] POCT GLUCOSE (AUTOMATED) 2023-10-05 22:15:00 [facility] POCT GLUCOSE (AUTOMATED) 2023-10-05 17:18:00 [facility] POCT GLUCOSE (AUTOMATED) 2023-10-05 17:18:00 Ome [facility]Elvi [facility] CBC WITH DIFF 2023-10-05 11:24:00 Jenusaitis, Lubigg [facility] CBC WITH DIFF 2023-10-05 11:24:00 Jenusaitis, Luke [facility] TUBAL LIGATION 2023-10-05 00:02:00 Omar Man [facility] VENOUS CORD GAS 2023-10-04 22:34:00 Jann Chopra [facility] VENOUS CORD GAS 2023-10-04 22:34:00 Jann Chopra [facility] POCT GLUCOSE (AUTOMATED) 2023-10-04 21:03:00 [facility] POCT GLUCOSE (AUTOMATED) 2023-10-04 21:03:00 [facility] POCT GLUCOSE (AUTOMATED) 2023-10-04 20:11:00 [facility] POCT GLUCOSE (AUTOMATED) 2023-10-04 20:11:00 [facility] 2023-10-04 18:14:00 Ome [facility]Elvi [facility] POCT GLUCOSE (AUTOMATED) 2023-10-04 18:14:00 Ome reElvi [facility] CENTRAL NEURAXIAL BLOCK 2023-10-04 16:30:00 Lindy Guidry [facility] POCT GLUCOSE (AUTOMATED) 2023-10-04 14:10:00 Ome re, [facility] POCT GLUCOSE (AUTOMATED) 2023-10-04 14:10:00 Ome re, [facility] POCT GLUCOSE (AUTOMATED) 2023-10-04 10:04:00 Ome re, [facility] POCT GLUCOSE (AUTOMATED) 2023-10-04 10:04:00 Ome re, [facility]vi [facility] [facility] POCT GLUCOSE (AUTOMATED) 2023-10-04 05:42:00 Ome re, [facility] POCT GLUCOSE (AUTOMATED) 2023-10-04 05:42:00 Ome re, [facility] POCT GLUCOSE (AUTOMATED) 2023-10-04 01:45:00 Ome re, Elvi [facility] POCT GLUCOSE (AUTOMATED) 2023-10-04 01:45:00 [facility]me re[facility] 2023-10-03 22:46:00 [facility] PROTEIN CREAT RATIO URINE RANDOM 2023-10-03 22:46:00 [facility] 2023-10-03 22:46:00 [facility] PROTEIN CREAT RATIO URINE RANDOM 2023-10-03 22:46:00 [facility]SE (AUTOMATED) 2023-10-03 22:42:00 Ome re, Elvi [facility] POCT GLUCOSE (AUTOMATED) 2023-10-03 22:42:00 Ome re Tolovana Parknaina [facility] SGOT (ASPARTATE AMINO TRANSFER) 2023-10-03 21:11:00 Kristine Naranjo [facility] CREATININE 2023-10-03 21:11:00 [facility] ALANINE AMINO TRANSFERASE(SGPT 2023-10-03 21:11:00 [facility] URIC ACID 2023-10-03 21:11:00 Kristine Naranjo [facility] CBC WITH DIFF 2023-10-03 21:11:00 Jann Chopra [facility] HEPATITIS B SURFACE ANTIGEN 2023-10-03 21:11:00 Jann Chopra [facility] HB ABO GROUPING 2023-10-03 21:11:00 Jann Chopra [facility] RHO (D) IMMUNE GLOBULIN 2023-10-03 21:11:00 Jenusaitis , [facility] EXTRA TUBE SST 2023-10-03 21:11:00 [facility] HIV 1/2 AG-AB WITH REFLEX 2023-10-03 21:11:00 Jann Chopra [facility] SYPHILIS IGG/IGM 2023-10-03 21:11:00 Jann Chopra [facility] SGOT (ASPARTATE AMINO TRANSFER) 2023-10-03 21:11:00 [facility]a [facility] CREATININE 2023-10-03 21:11:00 [facility] ALANINE AMINO TRANSFERASE(SGPT 2023-10-03 21:11:00 Marcella [facility] URIC ACID 2023-10-03 21:11:00 [facility] CBC WITH DIFF 2023-10-03 21:11:00 Jann Chopra [facility] HEPATITIS B SURFACE ANTIGEN 2023-10-03 21:11:00 Jann Chopra [facility] HB ABO GROUPING 2023-10-03 21:11:00 Jann Chopra [facility] RHO (D) IMMUNE GLOBULIN 2023-10-03 21:11:00 Jenusaitis , [facility] EXTRA TUBE SST 2023-10-03 21:11:00 Arcadio Bone [facility] HIV 1/2 AG-AB WITH REFLEX 2023-10-03 21:11:00 Jann Chopra [facility] SYPHILIS IGG/IGM 2023-10-03 21:11:00 Jann Chopra [facility] NON-STRESS TEST 2023-10-03 16:04:20 Aliyah Paz [facility] POCT URINALYSIS 2023-10-03 15:22:00 Sally Paz [facility] HOSPITAL ADMISSION 2023-10-03 06:01:00 Doctor Un assigned, [employer] [facility] NON-STRESS TEST 2023-10-01 20:08:22 AkinPartha lancaster [facility] POCT URINALYSIS 2023-09-26 19:23:00 Peterson Neville [facility] NON-STRESS TEST 2023-09-23 20:30:29 Partha Neville [facility] POCT URINALYSIS 2023-09-23 19:20:00 Peterson Neville [facility] POCT URINALYSIS 2023-09-19 20:42:00 Peterson Neville [facility] NON-STRESS TEST 2023-09-16 20:47:20 Aliyah Paz [facility] POCT URINALYSIS 2023-09-16 19:35:00 Peterson Neville [facility] SECOND AND THIRD TRIMESTER ULTRASOUND 2023-09-10 15:16:00 FoDano wong [facility] NON-STRESS TEST 2023-09-09 19:34:58 Partha Neville [facility] POCT URINALYSIS 2023-09-09 18:58:00 Peterson Neville [facility] NON-STRESS TEST 2023-09-05 19:57:01 Partha Neville [facility] POCT URINALYSIS 2023-09-05 18:51:00 Peterson Neville [facility] NON-STRESS TEST 2023-09-02 20:03:19 Aliyah Paz [facility] POCT URINALYSIS 2023-09-02 19:24:00 Peterson Neville [facility] DIABETES TESTING REPORTS 2023-08-27 06:01:00 Doc tor Unassigned, [employer] [facility] NON-STRESS TEST 2023-08-27 01:37:39 Aliyah Paz [facility] POCT URINALYSIS 2023-08-26 20:31:00 Peterson Neville [facility] NON-STRESS TEST 2023-08-22 20:40:34 Aliyah Paz [facility] POCT URINALYSIS 2023-08-22 19:57:00 Peterson Neville [facility] NON-STRESS TEST 2023-08-20 01:22:44 Aliyah Paz [facility] POCT URINALYSIS 2023-08-19 20:38:00 Peterson Neville [facility] POCT GLUCOSE (AUTOMATED) 2023-08-18 18:45:00 Nahid Quarles [facility] NOTICE OF PRIVACY PRACTICES 2023-08-18 18:10:13 Doctor Unassigned, [employer] [facility] ASSIGNMENT OF BENEFITS 2023-08-18 18:02:31 Docto r Unassigned, [employer] [facility] AUTHORIZATION FOR RELEASE OF PHI 2023-08-18 06:01:00 Doctor Unassigned, [employer] [facility] L&D VISIT (NON-DELIVERED) 2023-08-18 06:01:00 Doctor Unassigned, [employer] [facility] AUTHORIZATION FOR RELEASE OF PHI 2023-08-18 06:01:00 Doctor Unassigned, [employer] [facility] L&D VISIT (NON-DELIVERED) 2023-08-18 06:01:00 Doctor Unassigned, [employer] [facility] POCT URINALYSIS 2023-08-13 21:56:00 Peterson Neville [facility] PATIENT FINANCIAL POLICY 2023-08-11 16:08:00 Doctor Unassigned, [employer] [facility] SECOND AND THIRD TRIMESTER ULTRASOUND 2023-08-11 15:30:00 Fojt, [facility] POCT URINALYSIS 2023-07-30 20:39:00 Peterson Neville [facility] TDAP VACCINE, >11 YRS, IM 2023-07-16 20:46:46 Sally Paz [facility] FLU VACC (), 6 MO-64 YRS, .5ML, IM, QUAD (FLUCELVAX) 2023-07-16 20:46:15 Sally Paz [facility] STERILIZATION CONSENT FORM 2023-07-16 05:01:00 Doctor Unassigned, [employer] [facility] POCT URINALYSIS 2023-07-16 00:00:00 Peterson Neville [facility] SECOND AND THIRD TRIMESTER ULTRASOUND 2023-07-10 14:40:00 Fojt, [facility] POCT URINALYSIS 2023-07-01 20:22:00 Peterson Neville [facility] DIABETES TESTING REPORTS 2023-05-29 05:01:00 Doc tor Unassigned, [employer] [facility] SECOND AND THIRD TRIMESTER ULTRASOUND 2023-05-28 14:51:00 Fojt, [facility] SECOND AND THIRD TRIMESTER ULTRASOUND 2023-05-28 14:42:00 Fojt, [facility] POCT URINALYSIS 2023-05-28 13:10:00 Peterson Neville [facility] POCT URINALYSIS 2023-05-08 00:00:00 Peterson Neville [facility] SECOND AND THIRD TRIMESTER ULTRASOUND 2023-04-30 13:43:00 Fojt, [facility] QUAD SCRN 2023-04-24 21:22:00 Peterson Neville [facility] DIABETES TESTING REPORTS 2023-04-24 05:01:00 Doc tor Unassigned, [employer] [facility] POCT URINALYSIS 2023-04-24 00:00:00 Peterson Neville [facility] POCT URINALYSIS 2023-04-17 00:00:00 Peterson Neville [facility] COMP. METABOLIC PANEL (07696) 2023-04-09 14:04:00 Peterson Neville [facility] CREATININE U 24 HR 2023-04-09 13:13:00 [facility]Dano [facility]/24H 2023-04-09 13:13:00 [facility] POCT TEST 2023-03-12 15:17:00 Riley Neville [facility] POCT URINALYSIS W/O SPECIFIC GRAVITY 2023-03-12 15:17:00 Peterson Neville [facility] ASSIGNMENT OF BENEFITS 2023-03-12 14:58:17 Docto r Unassigned, [employer] [facility] Encounters Start Date/Time End Date/Time Encounter Type Admission Type Attending [facility] Facility Care Department Encounter ID Source 2024-06-08 10:45:00 2024-06-08 10:45:00 Outpatient R [facility] [id number] [facility] 2024-02-17 07:00:00 2024-02-17 07:00:00 Outpatient R SALLY PAZ [facility] [id number] [facility] 2024-02-13 00:00:00 2024-02-13 08:21:23 Telephone Sally Paz [facility] MAINTENANCE DIRECTOR [facility] CHILD [facility] ..840.114 350.1.13.10 4.2.7.2.686 [id number] 107 [id number] [facility] 2024-02-03 10:15:00 2024-02-03 11:37:41 Outpatient R SALLY PAZ [facility] [id number] [facility] 2024-02-03 10:15:00 2024-02-03 11:37:41 Office Visit Sally Paz [facility] MAINTENANCE DIRECTOR [facility] ..840.114 350.1.13.10 4.2.7.2.686 [id number] 107 [id number] [facility] 2024-01-28 09:00:00 2024-01-28 09:00:00 Outpatient R DIANNA BASS [facility] [id number] [facility] 2023-12-03 08:00:00 2023-12-03 08:00:00 Outpatient R SALLY PAZ [facility] [id number] [facility] 2023-10-28 16:00:00 2023-10-28 16:12:45 [facility] [id number] [facility] 2023-10-28 16:00:00 2023-10-28 16:12:45 Routine Visit Sally Paz [facility] MAINTENANCE DIRECTOR [facility] ..840.114 350.1.13.10 4.2.7.2.686 [id number] 107 [id number] [facility] 2023-10-14 16:00:00 2023-10-14 16:12:58 Outpatient PETERSON GE [facility] [id number] [facility] 2023-10-14 16:00:00 2023-10-14 16:12:58 Nurse Visit Visit, Ang-Rmchp Nurse Peterson Neville [facility] MAINTENANCE DIRECTOR [facility] & CHILD [facility] ..840.114 350.1.13.10 4.2.7.2.686 [id number] 107 [id number] [facility] 2023-10-03 13:39:00 2023-10-05 19:45:00 Hospital Encounter Elvi Bone [facility] ..840.114 350.1.13.10 4.2.7.2.686 [id number] [facility] 2023-10-03 13:39:00 2023-10-05 19:45:00 Inpatient X ELVI BONE [facility] RUTHY [id number] [facility] 2023-10-04 20:00:01 2023-10-04 20:00:01 Anesthesia Event Young Bill [facility] 1.2.840.114 350.1.13.10 4.2.7.2.686 [id number] [facility] 2023-10-04 18:30:00 2023-10-04 19:58:00 Surgery Omar Man [facility] 1.2.840.114 350.1.13.10 4.2.7.2.686 [id number] [facility] 2023-10-04 10:07:00 2023-10-04 19:30:00 Anesthesia Event Virginia Guidry Michael Lionel [facility] 1.2.840.114 350.1.13.10 4.2.7.2.686 [id number] [facility] 2023-10-03 09:30:00 2023-10-03 10:03:40 Outpatient R SALLY PAZ [facility] [id number] [facility] 2023-10-03 09:30:00 2023-10-03 10:03:40 Routine Visit Sally Paz [facility] MAINTENANCE DIRECTOR [facility] 1.2840.114 350.1.13.10 4.2.7.2.686 [id number] [facility] 2023-10-03 00:00:00 2023-10-03 00:00:00 Orders Only Doctor Unassigned, [employer] [facility] 1.2.840.114 350.1.13.10 4.2.7.2.686 [id number] [facility] 2023-10-01 13:00:00 2023-10-01 14:02:35 Outpatient R PETERSON NEVILLE [facility] [id number] [facility] 2023-10-01 13:00:00 2023-10-01 14:02:35 Routine Visit CarolyngeraldPeterson [facility] MAINTENANCE DIRECTOR [facility] & CHILD [facility] 1.840.114 350.1.13.10 4.2.7.2.686 [id number] [facility] 2023-09-26 13:15:00 2023-09-26 14:00:28 Outpatient R PETERSON NEVILLE [facility] [id number] [facility] 2023-09-26 13:15:00 2023-09-26 14:00:28 Routine Visit Peterson Neville [facility] MAINTENANCE DIRECTOR [facility] & CHILD [facility] 1.840.114 350.1.13.10 4.2.7.2.686 [id number] [facility] 2023-09-23 13:15:00 2023-09-23 14:15:02 Outpatient R PETERSON NEVILLE [facility] [id number] [facility] 2023-09-23 13:15:00 2023-09-23 14:15:02 Routine Visit Peterson Neville [facility] MAINTENANCE DIRECTOR [facility] & CHILD [facility] 1..840.114 350.1.13.10 4.2.7.2.686 [id number] [facility] 2023-09-19 15:15:00 2023-09-19 15:28:15 Outpatient R PETERSON NEVILLE [facility] [id number] [facility] 2023-09-19 15:15:00 2023-09-19 15:28:15 Routine Visit Peterson Neville [facility] MAINTENANCE DIRECTOR [facility] & CHILD [facility] 1..840.114 350.1.13.10 4.2.7.2.686 [id number] [facility] 2023-09-16 13:15:00 2023-09-16 14:18:02 Outpatient R SALLY PAZ [facility] [id number] [facility] 2023-09-16 13:15:00 2023-09-16 14:18:02 Routine Visit Brenna Sally Pinzon [facility] MAINTENANCE DIRECTOR [facility] 1..840.114 350.1.13.10 4.2.7.2.686 [id number] [facility] 2023-09-12 13:00:00 2023-09-12 13:00:00 Outpatient R PETERSON NEVILLE [facility] [id number] [facility] 2023-09-10 09:00:00 2023-09-10 09:25:49 Outpatient NIKI MARS [facility] [id number] [facility] 2023-09-10 09:00:00 2023-09-10 09:25:49 Pool Table Operator Visit Ultrasound, Angela Gabriel [facility] MAINTENANCE DIRECTOR [facility] 1..840.114 350.1.13.10 4.2.7.2.686 [id number] [facility] 2023-09-10 00:00:00 2023-09-10 00:00:00 Abstract Dano Patterson [facility] MAINTENANCE DIRECTOR [facility] 1..840.114 350.1.13.10 4.2.7.2.686 [id number] [facility] 2023-09-09 12:45:00 2023-09-09 13:37:07 Outpatient R PETERSON NEVILLE [facility] [id number] [facility] 2023-09-09 12:45:00 2023-09-09 13:37:07 Routine Visit Peterson Neville [facility] MAINTENANCE DIRECTOR [facility] & CHILD [facility] 1..840.114 350.1.13.10 4.2.7.2.686 [id number] [facility] 2023-09-05 12:45:00 2023-09-05 14:10:28 Outpatient R PETERSON NEVILLE [facility] [id number] [facility] 2023-09-05 12:45:00 2023-09-05 14:10:28 Routine Visit Peterson Neville [facility] MAINTENANCE DIRECTOR [facility] & CHILD [facility] 1..114 350.1.13.10 4.2.7.2.686 [id number] 107 [id number] [facility] 2023-09-02 13:00:00 2023-09-02 14:01:52 Outpatient R SALLY PAZ [facility] [id number] [facility] 2023-09-02 13:00:00 2023-09-02 14:01:52 Routine Visit Sally Paz [facility] MAINTENANCE DIRECTOR [facility] & CHILD [facility] 1..114 350.1.13.10 4.2.7.2.686 [id number] 107 [id number] [facility] 2023-08-27 00:00:00 2023-08-27 00:00:00 Orders Only Doctor Unassigned, [employer] [facility] .114 350.1.13.10 4.2.7.2.686 [id number] [facility] 2023-08-26 15:45:00 2023-08-26 15:45:00 Outpatient R SALLY PAZ [facility] [id number] [facility] 2023-08-26 14:45:00 2023-08-26 15:03:41 Routine Visit Sally Paz [facility] MAINTENANCE DIRECTOR [facility] & CHILD [facility] 1..114 350.1.13.10 4.2.7.2.686 [id number] 107 [id number] [facility] 2023-08-26 14:45:00 2023-08-26 15:03:41 Outpatient R SALLY PAZ [facility] [id number] [facility] 2023-08-22 14:00:00 2023-08-22 14:31:17 Outpatient R SALLY PAZ [facility] [id number] [facility] 2023-08-22 14:00:00 2023-08-22 14:31:17 Routine Visit Leopoldochristie Sally Jeromy [facility] MAINTENANCE DIRECTOR [facility] & CHILD [facility] 1.840.114 350.1.13.10 4.2.7.2.686 [id number] [facility] 2023-08-22 09:30:00 2023-08-22 09:30:00 Outpatient R SALLY PAZ [facility] [id number] [facility] 2023-08-19 15:00:00 2023-08-19 15:34:43 [facility] [id number] [facility] 2023-08-19 15:00:00 2023-08-19 15:34:43 Routine Visit Brian Paza Jeromy [facility] MAINTENANCE DIRECTOR [facility] & CHILD [facility] 1..840.114 350.1.13.10 4.2.7.2.686 [id number] [facility] 2023-08-18 12:12:00 2023-08-18 16:30:00 Outpatient X NAHID QUARLES [facility] [id number] [facility] 2023-08-18 12:12:00 2023-08-18 16:30:00 Emergency Nahid Quarles [facility] 1..840.114 350.1.13.10 4.2.7.2.686 [id number] [facility] 2023-08-18 00:00:00 2023-08-18 00:00:00 Telephone Peterson Neville [facility] MAINTENANCE DIRECTOR [facility] & CHILD [facility] 1.0.114 350.1.13.10 4.2.7.2.686 [id number] [facility] 2023-08-13 15:30:00 2023-08-13 16:13:31 Outpatient R PETERSON NEVILLE [facility] [id number] [facility] 2023-08-13 15:30:00 2023-08-13 16:13:31 Routine Visit Peterson Neville [facility]NA[facility]CE [facility] 1..114 350.1.13.10 4.2.7.2.686 [id number] [facility] 2023-08-11 09:00:00 2023-08-11 09:40:05 Outpatient [facility] [id number] [facility] 2023-08-11 09:00:00 2023-08-11 09:40:05 Pool Table Operator [facility] 1..114 350.1.13.10 4.2.7.2.686 [id number] [facility] 2023-08-11 00:00:00 2023-08-11 00:00:00 Orders Only Doctor Unassigned, [employer] [facility] 1..114 350.1.13.10 4.2.7.2.686 [id number] [facility] 2023-08-11 00:00:00 2023-08-11 00:00:00 Telephone Peterson Neville [facility] MAINTENANCE DIRECTOR [facility] & CHILD [facility] 1.0.114 350.1.13.10 4.2.7.2.686 [id number] [facility] 2023-08-11 00:00:00 2023-08-11 00:00:00 Abstract Estrellamarvin Dano [facility] MAINTENANCE DIRECTOR [facility] 1..114 350.1.13.10 4.2.7.2.686 [id number] [facility] 2023-08-04 00:00:00 2023-08-04 00:00:00 Telephone Sally Paz [facility] MAINTENANCE DIRECTOR [facility] 1..114 350.1.13.10 4.2.7.2.686 [id number] [facility] 2023-07-30 15:15:00 2023-07-30 16:02:46 Outpatient R SALLY PAZ [facility] [id number] [facility] 2023-07-30 15:15:00 2023-07-30 16:02:46 Routine Visit Sally Paz [facility] MAINTENANCE DIRECTOR [facility] 1..114 350.1.13.10 4.2.7.2.686 [id number] [facility] 2023-07-16 15:00:00 2023-07-16 15:58:59 Outpatient R SALLY PAZ [facility] [id number] [facility] 2023-07-16 15:00:00 2023-07-16 15:58:59 Routine Visit Sally Paz [facility] MAINTENANCE DIRECTOR [facility] & CHILD [facility] 1..114 350.1.13.10 4.2.7.2.686 [id number] [facility] 2023-07-16 00:00:00 2023-07-16 00:00:00 Orders Only Doctor Unassigned, [employer] [facility] 1.2.840.114 350.1.13.10 4.2.7.2.686 [id number] [facility] 2023-07-10 09:00:00 2023-07-10 09:42:37 Outpatient [facility] [id number] [facility] 2023-07-10 09:00:00 2023-07-10 09:42:37 Pool Table Operator Visit Ultrasound, Angela Gabriel [facility] MAINTENANCE DIRECTOR [facility] 1.2.840.114 350.1.13.10 4.2.7.2.686 [id number] [facility] 2023-07-10 00:00:00 2023-07-10 00:00:00 Abstract Dano Patterson [facility] MAINTENANCE DIRECTOR [facility] 1.2.840.114 350.1.13.10 4.2.7.2.686 [id number] [facility] 2023-07-03 00:00:00 2023-07-03 00:00:00 Peterson Smith [facility] MAINTENANCE DIRECTOR [facility] & CHILD [facility] 1.2.840.114 350.1.13.10 4.2.7.2.686 [id number] [facility] 2023-07-03 00:00:00 2023-07-03 00:00:00 Telephone Sally Paz [facility] MAINTENANCE DIRECTOR [facility] & CHILD [facility] 1.2.840.114 350.1.13.10 4.2.7.2.686 [id number] [facility] 2023-07-01 15:00:00 2023-07-01 16:26:42 Outpatient R SALLY PAZ [facility] [id number] [facility] 2023-07-01 15:00:00 2023-07-01 16:26:42 Routine Visit Sally Paz [facility] MAINTENANCE DIRECTOR [facility] CHILD [facility] 1.840.114 350.1.13.10 4.2.7.2.686 [id number] [facility] 2023-06-25 08:00:00 2023-06-25 08:00:00 Outpatient P [facility] [id number] [facility] 2023-05-29 00:00:00 2023-05-29 00:00:00 Orders Only Doctor Unassigned, [place] [facility] 1.0.114 350.1.13.10 4.2.7.2.686 [id number] [facility] 2023-05-28 08:45:00 2023-05-28 10:00:00 Pool Table Operator Visit Ultrasound, [facility] Sally Paz Shannon M [facility] MAINTENANCE DIRECTOR [facility] & CHILD [facility] 1..114 350.1.13.10 4.2.7.2.686 [id number] [facility] 2023-05-28 08:45:00 2023-05-28 08:45:00 Outpatient P GETACHEW CARRERA SHANNON [facility] [id number] [facility] 2023-05-28 07:45:00 2023-05-28 08:24:45 Routine Visit Sally Paz [facility] MAINTENANCE DIRECTOR [facility] & CHILD [facility] 1.0.114 350.1.13.10 4.2.7.2.686 [id number] [facility] 2023-05-28 00:00:00 2023-05-28 00:00:00 Telephone Peterson Neville [facility] MAINTENANCE DIRECTOR [facility] & CHILD [facility] 1.840.114 350.1.13.10 4.2.7.2.686 [id number] [facility] 2023-05-28 00:00:00 2023-05-28 00:00:00 Abstract Dano Patterson [facility] MAINTENANCE DIRECTOR [facility] & CHILD [facility] 1.2.840.114 350.1.13.10 4.2.7.2.686 [id number] [facility] 2023-05-28 00:00:00 2023-05-28 00:00:00 Abstract [facility] MAINTENANCE DIRECTOR [facility] & CHILD [facility] 1.2840.114 350.1.13.10 4.2.7.2.686 [id number] [facility] 2023-05-23 00:00:00 2023-05-23 00:00:00 Telephone Peterson Neville [facility] MAINTENANCE DIRECTOR [facility] & CHILD [facility] 1.0.114 350.1.13.10 4.2.7.2.686 [id number] [facility] 2023-05-14 00:00:00 2023-05-14 00:00:00 Abstract [facility] MAINTENANCE DIRECTOR [facility] & CHILD [facility] 1.840.114 350.1.13.10 4.2.7.2.686 [id number] [facility] 2023-05-08 10:00:00 2023-05-08 11:02:35 Outpatient R MARGOT MACEDO [facility] [id number] [facility] 2023-05-08 10:00:00 2023-05-08 11:02:35 Routine Visit Risk, Ang-Rmchp-N p/High Margot Macedo [facility] MAINTENANCE DIRECTOR [facility] & CHILD [facility] 1.2840.114 350.1.13.10 4.2.7.2.686 [id number] [facility] 2023-05-01 00:00:00 2023-05-01 00:00:00 Abstract Dano Patterson [facility] MAINTENANCE DIRECTOR [facility] 1.840.114 350.1.13.10 4.2.7.2.686 [id number] [facility] 2023-04-30 08:00:00 2023-04-30 09:36:57 Outpatient P ELVI BONE [facility] [id number] [facility] 2023-04-30 08:00:00 2023-04-30 09:36:57 Pool Table Operator Visit Ultrasound, Elvi Agudelo [facility] MAINTENANCE DIRECTOR [facility]ILD [facility] 1.840.114 350.1.13.10 4.2.7.2.686 [id number] [facility] 2023-04-24 15:45:00 2023-04-24 16:21:08 Outpatient R PETERSON NEVILLE [facility] [id number] [facility] 2023-04-24 15:45:00 2023-04-24 16:21:08 Routine Visit Peterson Neville [facility] MAINTENANCE DIRECTOR [facility] CHILD [facility] 1..840.114 350.1.13.10 4.2.7.2.686 [id number] [facility] 2023-04-24 00:00:00 2023-04-24 00:00:00 Orders Only Doctor Unassigned, [place] [facility] 1.840.114 350.1.13.10 4.2.7.2.686 [id number] [facility] 2023-04-17 09:15:00 2023-04-17 10:23:11 Outpatient R MARGOT MACEDO [facility] [id number] [facility] 2023-04-17 09:15:00 2023-04-17 10:23:11 Routine Visit Risk, GodfreyTitochp-N p/High MacedoMargot [facility] MAINTENANCE DIRECTOR [facility]ILD [facility] 1.2.840.114 350.1.13.10 4.2.7.2.686 [id number] [facility] 2023-04-16 00:00:00 2023-04-16 00:00:00 Telephone Peterson Neville [facility] MAINTENANCE DIRECTOR [facility] CHILD [facility] 1.2.840.114 350.1.13.10 4.2.7.2.686 [id number] [facility] 2023-04-09 08:00:00 2023-04-09 09:06:46 Outpatient R PETERSON NEVILLE [facility] [id number] [facility] 2023-04-09 08:00:00 2023-04-09 09:06:46 Routine Visit Peterson Neville [facility] MAINTENANCE DIRECTOR [facility] CHILD [facility] 1.2840.114 350.1.13.10 4.2.7.2.686 [id number] [facility] 2023-03-31 11:00:00 2023-03-31 11:42:33 Outpatient R PETERSON NEVILLE [facility] [id number] [facility] 2023-03-31 11:00:00 2023-03-31 11:42:33 Routine Visit Provider, Manuel Temp Peterson Neville [facility] MAINTENANCE DIRECTOR [facility] & CHILD [facility] 1.2840.114 350.1.13.10 4.2.7.2.686 [id number] [facility] 2023-03-17 14:00:00 2023-03-17 14:00:00 Nurse Visit Visit, Manuel Nurse Peterson Neville [facility] MAINTENANCE DIRECTOR [facility] CHILD [facility] 1.2.840.114 350.1.13.10 4.2.7.2.686 [id number] [facility] 2023-03-17 13:15:00 2023-03-17 13:42:34 Outpatient R PETERSON NEVILLE [facility] [id number] [facility] 2023-03-17 13:15:00 2023-03-17 13:30:00 Pool Table Operator Visit Lab, Michael-Rmchp Peterson Neville [facility] MAINTENANCE DIRECTOR [facility] CHILD [facility] 1.2.840.114 350.1.13.10 4.2.7.2.686 [id number] [facility] 2023-03-14 00:00:00 2023-03-14 00:00:00 Telephone Peterson Neville [facility] MAINTENANCE DIRECTOR [facility] CHILD [facility] 1.2.840.114 350.1.13.10 4.2.7.2.686 [id number] [facility] 2023-03-14 00:00:00 2023-03-14 00:00:00 Telephone MellovanPeterson duarte [facility] MAINTENANCE DIRECTOR [facility] CHILD [facility] 1.2.840.114 350.1.13.10 4.2.7.2.686 [id number] [facility] 2023-03-12 10:15:00 2023-03-12 11:21:12 Initial Visit Peterson Neville [facility] MAINTENANCE DIRECTOR [facility] CHILD [facility] 1.2.840.114 350.1.13.10 4.2.7.2.686 [id number] [facility] 2023-03-12 09:45:00 2023-03-12 10:24:59 Outpatient R PETERSON NEVILLE [facility] [id number] [facility] 2023-03-12 00:00:00 2023-03-12 00:00:00 Orders Only Doctor Unassigned, [place] [facility] 1.2.840.114 350.1.13.10 4.2.7.2.686 [id number] [facility] Results Test Description Test Time Test Comments Results Result Co mments Source [facility] GLUCOSE (AUTOMATED)2023-10-05 22:16:46* Test Item Value Reference Range Interpretation Comme nts POCT GLU (test code = 9425436674) 141 mg/dL 70-110 H Lab Interpretation (test cod e = 43642-9) Abnormal [facility] GLUCOSE (AUTOMATED)2023-10-05 17:19:55* Test Item Value Reference Range Interpretation Comme nts POCT GLU (test code = 5791464276) 125 mg/dL 70-110 H Lab Interpretation (test cod e = 06740-8) Abnormal [facility] GLUCOSE (AUTOMATED)2023-10-05 17:19:55* Test Item Value Reference Range Interpretation Comme nts POCT GLU (test code = 1749122883) 125 mg/dL 70-110 H Lab Interpretation (test cod e = 42112-1) [facility]normal [facility] IMMUNE [id number] 04:47:20* Test Item Value Reference Range Interpretation Comme nts RHIG CANDIDATE? (test code = 5188) No- see comment Patient is not a candidate for RhIg- Patient is Rh Positive.Performed at [facility] Laboratory Services [facility] Blood [address] [address]Qkak Free: [phone] No. [id number] [facility]) IMMUNE [id number] 04:47:20* Test Item Value Reference Range Interpretation Comme nts RHIG CANDIDATE? (test code = 5188) No- see comment Patient is not a candidate for RhIg- Patient is Rh Positive.Performed at [facility] Laboratory Services - [facility] Blood [address] [place] [address]Itiy Free: [phone] No. [id number] [facility] Cord [id number] 23:11:20* Test Item Value Reference Range Interpretation Comme nts VENOUS BASE EXCESS, CORD (test code = 6017302397) -1.9 mEq/L VENOUS PH, CORD (test code = 8997866105) 7.36 7.25-7.45 VENOUS PC02, CORD (test code = 2840163029) 43 See_Comment [Automated messa ge] The system which generated this result transmitted reference range: 27 - 49 mmHg. The reference range was not used to interpret this result as normal/abnormal. VENOUS PO2, CORD (test code = 8410564959) 30 See_Comment [Automated me ssage] The system which generated this result transmitted reference range: 17 - 41 mmHg. The reference range was not used to interpret this result as normal/abnormal. VENOUS BICARBONATE, CORD (test code = 9089613502) 24 See_Comment QUES [Automated message] The system which generated this result transmitted reference range: 12 - 29 mEq/L. The reference range was not used to interpret this result as normal/abnormal. [facility] Cord [id number] 23:11:20* Test Item Value Reference Range Interpretation Comme nts VENOUS BASE EXCESS, CORD (test code = 0634366990) -1.9 mEq/L VENOUS PH, CORD (test code = 7668686106) 7.36 7.25-7.45 VENOUS PC02, CORD (test code = 5707905099) 43 See_Comment [Automated messa ge] The system which generated this result transmitted reference range: 27 - 49 mmHg. The reference range was not used to interpret this result as normal/abnormal. VENOUS PO2, CORD (test code = 6619870213) 30 See_Comment [Automated me ssage] The system which generated this result transmitted reference range: 17 - 41 mmHg. The reference range was not used to interpret this result as normal/abnormal. VENOUS BICARBONATE, CORD (test code = 2131240133) 24 See_Comment QUES [Automated message] The system which generated this result transmitted reference range: 12 - 29 mEq/L. The reference range was not used to interpret this result as normal/abnormal. [facility] [id number] 23:11:15* Test Item Value Reference Range Interpretation Comme nts BASE EXCESS, CORD (test code = 2032453218) -4.1 mEq/L QUES AC PH, CORD (BEAKER) (test code = 9843889084) 7.27 7.18-7.38 PC02, CORD (test code = 8921969260) 53 See_Comment [Automated messa ge] The system which generated this result transmitted reference range: 32 - 66 mmHg. The reference range was not used to interpret this result as normal/abnormal. PO2, CORD (test code = 6941751615) 24 See_Comment [Automated messa ge] The system which generated this result transmitted reference range: 10 - 30 mmHg. The reference range was not used to interpret this result as normal/abnormal. BICARBONATE, CORD (test code = 9437491784) 24 See_Comment [Automated messa ge] The system which generated this result transmitted reference range: 17 - 27 mEq/L. The reference range was not used to interpret this result as normal/abnormal. [facility] Cord [id number] 23:11:15* Test Item Value Reference Range Interpretation Comme [facility] BASE EXCESS, CORD (test code = 2042411105) -4.1 mEq/L QUES AC PH, CORD (BEAKER) (test code = 8803365238) 7.27 7.18-7.38 PC02, CORD (test code = 9051122430) 53 See_Comment [Automated messa ge] The system which generated this result transmitted reference range: 32 - 66 mmHg. The reference range was not used to interpret this result as normal/abnormal. PO2, CORD (test code = 3677967154) 24 See_Comment [Automated messa ge] The system which generated this result transmitted reference range: 10 - 30 mmHg. The reference range was not used to interpret this result as normal/abnormal. BICARBONATE, CORD (test code = 8567222285) 24 See_Comment [Automated messa ge] The system which generated this result transmitted reference range: 17 - 27 mEq/L. The reference range was not used to interpret this result as normal/abnormal. [facility] GLUCOSE (AUTOMATED)2023-10-04 21:14:14* Test Item Value Reference Range Interpretation Comme [facility] POCT GLU (test code = 8182690326) 103 mg/dL 70-110 Lab Interpretation (test cod e = 41025-7) Normal [facility] GLUCOSE (AUTOMATED)2023-10-04 21:14:14* Test Item Value Reference Range Interpretation Comme nts POCT GLU (test code = 1734505985) 103 mg/dL 70-110 Lab Interpretation (test cod e = 01025-5) Normal [facility] GLUCOSE (AUTOMATED)2023-10-04 20:12:10* Test Item Value Reference Range Interpretation Comme nts POCT GLU (test code = 2409778614) 105 mg/dL 70-110 Lab Interpretation (test cod e = 10519-0) Normal [facility] GLUCOSE (AUTOMATED)2023-10-04 20:12:10* Test Item Value Reference Range Interpretation Comme nts POCT GLU (test code = 8138917507) 105 mg/dL 70-110 Lab Interpretation (test cod e = 88029-3) Normal [facility] GLUCOSE (AUTOMATED)2023-10-04 18:16:15* Test Item Value Reference Range Interpretation Comme nts POCT GLU (test code = 9901117387) 123 mg/dL 70-110 H Lab Interpretation (test cod e = 85775-9) Abnormal [facility] GLUCOSE (AUTOMATED)2023-10-04 18:16:15* Test Item Value Reference Range Interpretation Comme nts POCT GLU (test code = 8755955289) 123 mg/dL 70-110 H Lab Interpretation (test cod e = 66451-0) Abnormal [facility] [id number] 16:30:00 Virginia Guidry MD ? ? 10/04/2023 10:30 AM Central Neuraxial Block Date/Time: 10/04/2023 10:30 AM Performed by: Virginia Guidry MDAuthorized by: Benito Quigley MD ?Patient Location:OBEnd Time: 10/04/2023 10:30 AMReason for Block: Patient request and Labor analgesiaStaff: ?Anesthesiologist: Benito Quigley MD ?Resident/MERCHANDISE DELIVERER: Virginia Guidry MD ?Performed by: resident/CRNAPreanesthetic Checklist: anesthesia consent, IV checked, patient identified, pre-op evaluation, risks and benefits explained and timeout performedProcedure: ?Type of Neuraxial: Epidural ?Epidural Description: 1st attempt ? Sterility Prep cap, drape, gloves, hand hygiene and mask ? ?Sedation Level no sedation ?Patient Position: sitting ?Prep: Betadine ? ?Monitoring: heart rate, NIBP and continuous pulse ox ?Location: lumbar (1-5) ?Lumbar: L3-L4 ?Approach: midline ? ?Technique: catheter ?Guidance with: landmark technique}Epidural/Spinal [place] and/or Catheter: ?Epidural/Spinal Kit: BBraun ?Needle Type: Tuohy ?Needle Gauge: 17 G ?Needle Length: 3.5 in (8.89 cm) ?Needle Insertion Depth: 7.5?Catheter Type: multiport ? ?Catheter Size: 18 G ? ?Catheter at Skin Depth: 12.5 ?Number of Attempts: 1 ?Test Dose: lidocaine 1.5% with epinephrine 1-to-200,000 ? ?Dose: 5 ccAssessment: ?Block Outcome: a full evaluation is pending ? ?Procedure Assessment: patient tolerated procedure well with no complicationsSt[facility] HospitalCentral [facility] Block 2023-10-04 16:30:00Virginia Guidry MD ? ? 10/04/2023 10:30 AM Central Neuraxial Block Date/Time: 10/04/2023 10:30 AM Performed by: Virginia Guidry, MDAuthorized by: Benito Quigley MD ?Patient Location:OBEnd Time: 10/04/2023 10:30 AMReason for Block: Patient request and Labor analgesiaStaff: ?Anesthesiologist: Benito Quigley MD ?Resident/MERCHANDISE DELIVERER: Virginia Guidry MD ?Performed by: resident/CRNAPreanesthetic Checklist: anesthesia consent, IV checked, patient identified, pre-op evaluation, risks and benefits explained and timeout performedProcedure: ?Type of Neuraxial: Epidural ?Epidural Description: 1st attempt ? Sterility Prep cap, drape, gloves, hand hygiene and mask ? ?Sedation Level no sedation ?Patient Position: sitting ?Prep: Betadine ? ?Monitoring: heart rate, NIBP and continuous pulse ox ?Location: lumbar (1-5) ?Lumbar: L3-L4 ?Approach: midline ? ?Technique: catheter ?Guidance with: landmark technique}Epidural/Spinal [place] and/or Catheter: ?Epidural/Spinal Kit: BBraun ?Needle Type: Tuohy ?Needle Gauge: 17 G ?Needle Length: 3.5 in (8.89 cm) ?Needle Insertion Depth: 7.5?Catheter Type: multiport ? ?Catheter Size: 18 G ? ?Catheter at Skin Depth: 12.5 ?Number of Attempts: 1 ?Test Dose: lidocaine 1.5% with epinephrine 1-to-200,000 ? ?Dose: 5 ccAssessment: ?Block Outcome: a full evaluation is pending ? ?Procedure Assessment: patient tolerated procedure well with no complicationsUnSt. David's Medical CenterCentral Neuraxial [id number] 16:30:00Virginia Guidry MD ? ? 10/04/2023 10:30 AM Central Neuraxial Block Date/Time: 10/04/2023 10:30 AM Performed by: Virginia Guidry MDAuthorized by: Benito Quigley MD ?Patient Location:OBEnd Time: 10/04/2023 10:30 AMReason for Block: Patient request and Labor analgesiaStaff: ?Anesthesiologist: Benito Quigley MD ?Resident/MERCHANDISE DELIVERER: Virginia Guidry MD ?Performed by: resident/CRNAPreanesthetic Checklist: anesthesia consent, IV checked, patient identified, pre-op evaluation,risks and benefits explained and timeout performedProcedure: ?Type of Neuraxial: Epidural ?EpiduralDescription: 1st attempt ? Sterility Prep cap, drape, gloves, hand hygiene and mask ? ?Sedation Level no sedation ?Patient Position: sitting ?Prep: Betadine ? ?Monitoring: heart rate, NIBP and continuous pulse ox ?Location: lumbar (1-5) ?Lumbar: L3-L4 ?Approach: midline ? ?Technique: catheter ?Guidance with: landmark technique}Epidural/Spinal [place] and/or Catheter: ?Epidural/Spinal Kit: BBraun ?Needle Type: Tuohy ?Needle Gauge: 17 G ?Needle Length: 3.5 in (8.89 cm) ?Needle Insertion Depth: 7.5 ?Catheter Type: multiport ? ?Catheter Size: 18 G ? ?Catheter at Skin Depth: 12.5 ?Number of Attempts: 1 ?Test Dose: lidocaine 1.5% with epinephrine 1-to-200,000 ? ?Dose: 5 ccAssessment: ?Block Outcome: a full evaluation is pending ? ?Procedure Assessment: patient tolerated procedure well with no complicationsUnSt. David's Medical CenterGAL ONLY - SYPHILIS IGG/[id number] 16:11:21* Test Item Value Reference Range Interpretation Comme nts Syphilis IgG/IgM (test code = 66671-5) Non-reactive Non-reactive JEIMY (test code = JEIMY) Non-reactive - No serologic evidence of T. pallidum infection. Cannot exclude incubating or early syphilis. Submit a second specimen in 2-4 weeks if syphilis is clinically suspected. Equivocal - Further testing to follow. Reactive - Further testing to follow. Lab Interpretation (test code = 59416-5) [facility] ONLY - SYPHILIS IGG/[id number] 16:11:21* Test Item Value Reference Range Interpretation Comme nts Syphilis IgG/IgM (test code = 91151-7) Non-reactive Non-reactive JEIMY (test code = JEIMY) Non-reactive - No serologic evidence of T. pallidum infection. Cannot exclude incubating or early syphilis. Submit a second specimen in 2-4 weeks if syphilis is clinically suspected. Equivocal - Further testing to follow. Reactive - Further testing to follow. Lab Interpretation (test code = 29481-3) [facility] GLUCOSE (AUTOMATED)2023-10-04 14:11:48* Test Item Value Reference Range Interpretation Comme nts POCT GLU (test code = 5580970434) 110 mg/dL 70-110 Lab Interpretation (test cod e = 56577-9) [facility] GLUCOSE (AUTOMATED)2023-10-04 14:11:48* Test Item Value Reference Range Interpretation Comme nts POCT GLU (test code = 6425463729) 110 mg/dL 70-110 Lab Interpretation (test cod e = 66940-2) [facility] GLUCOSE (AUTOMATED)2023-10-04 10:05:06* Test Item Value Reference Range Interpretation Comme nts POCT GLU (test code = 6500421360) 98 mg/dL 70-110 Lab Interpretation (test cod e = 82407-4) Normal [facility] GLUCOSE (AUTOMATED)2023-10-04 10:05:06* Test Item Value Reference Range Interpretation Comme nts POCT GLU (test code = 6641290344) 98 mg/dL 70-110 Lab Interpretation (test cod e = 10187-2) Normal [facility] GLUCOSE (AUTOMATED)2023-10-04 05:43:18* Test Item Value Reference Range Interpretation Comme nts POCT GLU (test code = 0602929140) 85 mg/dL 70-110 Lab Interpretation (test cod e = 04199-4) Normal [facility] GLUCOSE (AUTOMATED)2023-10-04 05:43:18* Test Item Value Reference Range Interpretation Comme nts POCT GLU (test code = 4614080132) 85 mg/dL 70-110 Lab Interpretation (test cod e = 14106-7) Normal [facility] GLUCOSE (AUTOMATED)2023-10-04 01:46:39* Test Item Value Reference Range Interpretation Comme nts POCT GLU (test code = 5068537512) 87 mg/dL 70-110 Lab Interpretation (test cod e = 10621-2) Normal [facility] GLUCOSE (AUTOMATED)2023-10-04 01:46:39* Test Item Value Reference Range Interpretation Comme nts POCT GLU (test code = 6806400499) 87 mg/dL 70-110 Lab Interpretation (test cod e = 99139-5) Normal [facility]/2 AG-AB WITH [id number] 23:48:52* Test Item Value Reference Range Interpretation Comme nts HIV Semi-quantitative (test code = 64613-4) 0.10 Negative JEIMY (test code = JEIMY) Non-reactive for HIV-1 antigen and HIV-1/HIV-2 antibodies. ?No laboratory evidence of HIV infection. ?Repeat in 2-4 weeks if acute HIV infection is suspected. [facility]HIV [facility]/2 AG-AB WITH [id number] 23:48:52* Test Item Value Reference Range Interpretation Comme nts HIV Semi-quantitative (test code = 18880-7) 0.10 Negative JEIMY (test code = JEIMY) Non-reactive for HIV-1 antigen and HIV-1/HIV-2 antibodies. ?No laboratory evidence of HIV infection. ?Repeat in 2-4 weeks if acute HIV infection is suspected. [facility] HospitalUric Acid [id number] 23:27:47* Test Item Value Reference Range Interpretation Comme nts URIC ACID (test code = 8063812601) 6.1 mg/dL 2.9-6.0 H Lab Interpretation (test cod e = 33411-0) Abnormal [facility] [id number] 23:27:47* Test Item Value Reference Range Interpretation Comme nts CREATININE (test code = 3651549868) 0.54 mg/dL 0.50-1.04 eGFR (test code = 30473-0) 132.9 mL/min/1.73m2 CKD-EPI eGFR (20 21). Assuming creatinine has been stable day-to-day for at least three months, the eGFR indicates Category G1 (>= 90 mL/min/1.73 m2) [facility] Hospital[facility] (Asparate Amino Transfer)2023-10-03 23:27:47* Test Item Value Reference Range Interpretation Comme nts AST(SGOT) (test code = 6455383359) 21 U/L 13-40 Lab Interpretation (test cod e = 19020-8) Normal [facility] HospitalAlanine Amino Transferase (SGPT)2023-10-03 23:27:47* Test Item Value Reference Range Interpretation Comme nts ALTv (test code = 1742-6) 19 U/L 5-35 Lab Interpretation (test cod e = 81527-9) Normal [facility] HospitalU[facility] Acid [id number] 23:27:47* Test Item Value Reference Range Interpretation Comme [facility] URIC ACID (test code = 3126870340) 6.1 mg/dL 2.9-6.0 H Lab Interpretation (test cod e = 25501-3) Abnormal [facility] [id number] 23:27:47* Test Item Value Reference Range Interpretation Comme nts CREATININE (test code = 9951067313) 0.54 mg/dL 0.50-1.04 eGFR (test code = 96170-6) 132.9 mL/min/1.73m2 CKD-EPI eGFR (20 21). Assuming creatinine has been stable day-to-day for at least three months, the eGFR indicates Category G1 (>= 90 mL/min/1.73 m2) [facility] (Asparate Amino Transfer)2023-10-03 23:27:47* Test Item Value Reference Range Interpretation Comme nts AST(SGOT) (test code = 3079528001) 21 U/L 13-40 Lab Interpretation (test cod e = 27401-7) Normal [facility] HospitalAlanine Amino Transferase (SGPT)2023-10-03 23:27:47* Test Item Value Reference Range Interpretation Comme nts ALTv (test code = 1742-6) 19 U/L 5-35 Lab Interpretation (test cod e = 54647-8) Normal [facility] GLUCOSE (AUTOMATED)2023-10-03 22:44:03* Test Item Value Reference Range Interpretation Comme nts POCT GLU (test code = 8351508882) 99 mg/dL 70-110 Lab Interpretation (test cod e = 02659-6) Normal [facility] GLUCOSE (AUTOMATED)2023-10-03 22:44:03* Test Item Value Reference Range Interpretation Comme nts POCT GLU (test code = 8134785538) 99 mg/dL 70-110 Lab Interpretation (test cod e = 41305-4) Normal [facility] [facility] [id number] 22:33:41 * Test Item Value Reference Range Interpretation Comme nts HBsAg Semi-Quantitative (bess t code = 5195-3) 0.11 Negative [facility] B Surface [id number] 22:33:41 * Test Item Value Reference Range Interpretation Comme nts HBsAg Semi-Quantitative (bess t code = 5195-3) 0.11 Negative [facility] with [id number] 21:27:09* Test Item Value Reference Range Interpretation Comme nts WBC (test code = 6690-2) 9.43 See_Comment [Automated Voxlia ge] The system which generated this result transmitted reference range: 4.30 - 11.10 10*3/?L. The reference range was not used to interpret this result as normal/abnormal. RBC (test code = 789-8) 4.27 See_Comment [Automated Voxlia ge] The system which generated this result transmitted reference range: 3.93 - 5.25 10*6/?L. The reference range was not used to interpret this result as normal/abnormal. HGB (test code = 718-7) 12.5 g/dL 11.6-15.0 HCT (test code = 4544-3) 36.6 % 35.7-45.2 MCV (test code = 787-2) 85.7 fL 80.6-95.5 MCH (test code = 785-6) 29.3 pg 25.9-32.8 MCHC (test code = 786-4) 34.2 g/dL 31.6-35.1 RDW-SD (test code = 10033-3) 40.0 fL 39.0-49.9 RDW-CV (test code = 788-0) 13.1 % 12.0-15.5 PLT (test code = 777-3) 198 See_Comment [Automated messa ge] The system which generated this result transmitted reference range: 166 - 358 10*3/?L. The reference range was not used to interpret this result as normal/abnormal. MPV (test code = 99451-4) 12.5 fL 9.5-12.9 NRBC/100 WBC (test code = 9906328192) 0.0 See_Comment [Automated Erly ssage] The system which generated this result transmitted reference range: 0.0 - 10.0 /100 WBCs. The reference range was not used to interpret this result as normal/abnormal. NRBC x10^3 (test code = 9540299362) See_Comment [Automated Voxlia ge] The system which generated this result transmitted reference range: 10*3/?L. The reference range was not used to interpret this result as normal/abnormal. GRAN MAT (NEUT) % (test code = 770-8) 76.9 % IMM GRAN % (test code = 4489057370) 0.40 % LYMPH % (test code = 736-9) 15.5 % MONO % (test code = 5905-5) 6.0 % EOS % (test code = 713-8) 1.0 % BASO % (test code = 706-2) 0.2 % GRAN MAT x10^3(ANC) (test code = 4323453096) 7.25 10*3/uL 1.88-7.09 H IMM GRAN x10^3 (test code = 3335803421) 0.04 10*3/uL 0.00-0.06 LYMPH x10^3 (test code = 731-0) 1.46 10*3/uL 1.32-3.29 MONO x10^3 (test code = 742-7) 0.57 10*3/uL 0.33-0.92 EOS x10^3 (test code = 711-2) 0.09 10*3/uL 0.03-0.39 BASO x10^3 (test code = 704-7) 0.01-0.07 Lab Interpretation (test code = 02087-3) Abnormal [facility] with [id number] 21:27:09* Test Item Value Reference Range Interpretation Comme nts WBC (test code = 6690-2) 9.43 See_Comment [Automated messa ge] The system which generated this result transmitted reference range: 4.30 - 11.10 10*3/?L. The reference range was not used to interpret this result as normal/abnormal. RBC (test code = 789-8) 4.27 See_Comment [Automated messa ge] The system which generated this result transmitted reference range: 3.93 - 5.25 10*6/?L. The reference range was not used to interpret this result as normal/abnormal. HGB (test code = 718-7) 12.5 g/dL 11.6-15.0 HCT (test code = 4544-3) 36.6 % 35.7-45.2 MCV (test code = 787-2) 85.7 fL 80.6-95.5 MCH (test code = 785-6) 29.3 pg 25.9-32.8 MCHC (test code = 786-4) 34.2 g/dL 31.6-35.1 RDW-SD (test code = 05023-0) 40.0 fL 39.0-49.9 RDW-CV (test code = 788-0) 13.1 % 12.0-15.5 PLT (test code = 777-3) 198 See_Comment [Automated messa ge] The system which generated this result transmitted reference range: 166 - 358 10*3/?L. The reference range was not used to interpret this result as normal/abnormal. MPV (test code = 30579-1) 12.5 fL 9.5-12.9 NRBC/100 WBC (test code = 8821218830) 0.0 See_Comment [Automated me ssage] The system which generated this result transmitted reference range: 0.0 - 10.0 /100 WBCs. The reference range was not used to interpret this result as normal/abnormal. NRBC x10^3 (test code = 2847033095) See_Comment [Automated messa ge] The system which generated this result transmitted reference range: 10*3/?L. The reference range was not used to interpret this result as normal/abnormal. GRAN MAT (NEUT) % (test code = 770-8) 76.9 % IMM GRAN % (test code = 5634511546) 0.40 % LYMPH % (test code = 736-9) 15.5 % MONO % (test code = 5905-5) 6.0 % EOS % (test code = 713-8) 1.0 % BASO % (test code = 706-2) 0.2 % GRAN MAT x10^3(ANC) (test code = 9009828883) 7.25 10*3/uL 1.88-7.09 H IMM GRAN x10^3 (test code = 7926344370) 0.04 10*3/uL 0.00-0.06 LYMPH x10^3 (test code = 731-0) 1.46 10*3/uL 1.32-3.29 MONO x10^3 (test code = 742-7) 0.57 10*3/uL 0.33-0.92 EOS x10^3 (test code = 711-2) 0.09 10*3/uL 0.03-0.39 BASO x10^3 (test code = 704-7) 0.01-0.07 Lab Interpretation (test code = 91814-4) [facility] [id number] 21:16:00 * Test Item Value Reference Range Interpretation Comme nts ABO & RH (test code = 20) O POSITIVE IAT (test code = 1185) [facility] [id number] 21:16:00 * Test Item Value Reference Range Interpretation Comme nts ABO & RH (test code = 20) O POSITIVE IAT (test code = 1185) [facility] [id number] 15:22:00* Test Item Value Reference Range Interpretation Comme nts POCT U SP GRAV (test code = 3255) . 1.005-1.025 POCT PH U (test code = 3254) 5 mg/dl 5-8 POCT U LEUK EST (test code = 3263) 2+ Negative - Negative POCT U NIT (test code = 3262) Neg Negative - Negati ve POCT U PROT (test code = 3259) 1+ Negative - Negat leonid POCT U GLU (test code = 3256) Nml Negative - Negati ve POCT U KETONE (test code = 3258) None Negative - Neg ative POCT U UROBILI (test code = 3260) . 0.2-1 POCT U BILI (test code = 3261) . Negative - Negat leonid POCT U BLD (test code = 3257) Trace Negative - Negati ve POCT U COLOR (test code = 3266) . POCT U APPEAR (test code = 3267) . [facility] URINALYSIS W SPECIFIC [id number] 19:24:00* Test Item Value Reference Range Interpretation Comme nts POCT U SP GRAV (test code = 3255) . 1.005-1.025 POCT PH U (test code = 3254) . 5-8 POCT U LEUK EST (test code = 3263) . Negative - N egative POCT U NIT (test code = 3262) . Negative - Negati ve POCT U PROT (test code = 3259) trace Negative - Negat leonid POCT U GLU (test code = 3256) neg Negative - Negati ve POCT U KETONE (test code = 3258) . Negative - Neg ative POCT U UROBILI (test code = 3260) . 0.2-1 POCT U BILI (test code = 3261) . Negative - Negat leonid POCT U BLD (test code = 3257) . Negative - Negati ve POCT U COLOR (test code = 3266) . POCT U APPEAR (test code = 3267) . [facility] URINALYSIS W SPECIFIC [id number] 19:20:00* Test Item Value Reference Range Interpretation Comme nts POCT U SP GRAV (test code = 3255) . 1.005-1.025 POCT PH U (test code = 3254) . 5-8 POCT U LEUK EST (test code = 3263) . Negative - N egative POCT U NIT (test code = 3262) . Negative - Negati ve POCT U PROT (test code = 3259) 1+ Negative - Negat leonid POCT U GLU (test code = 3256) Nml Negative - Negati ve POCT U KETONE (test code = 3258) . Negative - Neg ative POCT U UROBILI (test code = 3260) . 0.2-1 POCT U BILI (test code = 3261) . Negative - Negat leonid POCT U BLD (test code = 3257) . Negative - Negati ve POCT U COLOR (test code = 3266) . POCT U APPEAR (test code = 3267) . [facility] URINALYSIS W SPECIFIC [id number] 20:42:00* Test Item Value Reference Range Interpretation Comme nts POCT U SP GRAV (test code = 3255) . 1.005-1.025 POCT PH U (test code = 3254) . 5-8 POCT U LEUK EST (test code = 3263) . Negative - N egative POCT U NIT (test code = 3262) . Negative - Negati ve POCT U PROT (test code = 3259) trace Negative - Negat leonid POCT U GLU (test code = 3256) neg Negative - Negati ve POCT U KETONE (test code = 3258) . Negative - Neg ative POCT U UROBILI (test code = 3260) . 0.2-1 POCT U BILI (test code = 3261) . Negative - Negat leonid POCT U BLD (test code = 3257) . Negative - Negati ve POCT U COLOR (test code = 3266) . POCT U APPEAR (test code = 3267) . [facility] URINALYSIS W SPECIFIC [id number] 20:42:00* Test Item Value Reference Range Interpretation Comme nts POCT U SP GRAV (test code = 3255) . 1.005-1.025 POCT PH U (test code = 3254) . 5-8 POCT U LEUK EST (test code = 3263) . Negative - N egative POCT U NIT (test code = 3262) . Negative - Negati ve POCT U PROT (test code = 3259) trace Negative - Negat leonid POCT U GLU (test code = 3256) neg Negative - Negati ve POCT U KETONE (test code = 3258) . Negative - Neg ative POCT U UROBILI (test code = 3260) . 0.2-1 POCT U BILI (test code = 3261) . Negative - Negat leonid POCT U BLD (test code = 3257) . Negative - Negati ve POCT U COLOR (test code = 3266) . POCT U APPEAR (test code = 3267) . [facility] URINALYSIS W SPECIFIC [id number] 19:36:00* Test Item Value Reference Range Interpretation Comme nts POCT U SP GRAV (test code = 3255) . 1.005-1.025 POCT PH U (test code = 3254) 6 mg/dl 5-8 POCT U LEUK EST (test code = 3263) 1+ Negative - Negative POCT U NIT (test code = 3262) NEG Negative - Negati ve POCT U PROT (test code = 3259) TRAC Negative - Negat leonid POCT U GLU (test code = 3256) NEG Negative - Negati ve POCT U KETONE (test code = 3258) NEG Negative - Neg ative POCT U UROBILI (test code = 3260) . 0.2-1 POCT U BILI (test code = 3261) . Negative - Negat leonid POCT U BLD (test code = 3257) NEG Negative - Negati ve POCT U COLOR (test code = 3266) . POCT U APPEAR (test code = 3267) . [facility] URINALYSIS W SPECIFIC [id number] 18:59:00* Test Item Value Reference Range Interpretation Comme nts POCT U SP GRAV (test code = 3255) . 1.005-1.025 POCT PH U (test code = 3254) 5 mg/dl 5-8 POCT U LEUK EST (test code = 3263) 1+ Negative - Negative POCT U NIT (test code = 3262) negative Negative - Negati ve POCT U PROT (test code = 3259) trace Negative - Negat leonid POCT U GLU (test code = 3256) negative Negative - Negati ve POCT U KETONE (test code = 3258) negative Negative - Neg ative POCT U UROBILI (test code = 3260) . 0.2-1 POCT U BILI (test code = 3261) . Negative - Negat leonid POCT U BLD (test code = 3257) negative Negative - Negati ve POCT U COLOR (test code = 3266) POCT U APPEAR (test code = 3267) Lab Interpretation (test cod e = 89968-9) Normal [facility] URINALYSIS W SPECIFIC [id number] 18:51:00* Test Item Value Reference Range Interpretation Comme nts POCT U SP GRAV (test code = 3255) . 1.005-1.025 POCT PH U (test code = 3254) . 5-8 POCT U LEUK EST (test code = 3263) . Negative - N egative POCT U NIT (test code = 3262) . Negative - Negati ve POCT U PROT (test code = 3259) trace Negative - Negat leonid POCT U GLU (test code = 3256) neg Negative - Negati ve POCT U KETONE (test code = 3258) . Negative - Neg ative POCT U UROBILI (test code = 3260) . 0.2-1 POCT U BILI (test code = 3261) . Negative - Negat leonid POCT U BLD (test code = 3257) . Negative - Negati ve POCT U COLOR (test code = 3266) . POCT U APPEAR (test code = 3267) . [facility] URINALYSIS W SPECIFIC [id number] 19:24:00* Test Item Value Reference Range Interpretation Comme nts POCT U SP GRAV (test code = 3255) . 1.005-1.025 POCT PH U (test code = 3254) 5 mg/dl 5-8 POCT U LEUK EST (test code = 3263) 1+ Negative - Negative POCT U NIT (test code = 3262) Neg Negative - Negati ve POCT U PROT (test code = 3259) 1+ Negative - Negat leonid POCT U GLU (test code = 3256) Trace Negative - Negati ve POCT U KETONE (test code = 3258) None Negative - Neg ative POCT U UROBILI (test code = 3260) . 0.2-1 POCT U BILI (test code = 3261) . Negative - Negat leonid POCT U BLD (test code = 3257) TRace Negative - Negati ve POCT U COLOR (test code = 3266) . POCT U APPEAR (test code = 3267) [facility] URINALYSIS W SPECIFIC [id number] 20:31:00* Test Item Value Reference Range Interpretation Comme nts POCT U SP GRAV (test code = 3255) . 1.005-1.025 POCT PH U (test code = 3254) 6 mg/dl 5-8 POCT U LEUK EST (test code = 3263) 1+ Negative - Negative POCT U NIT (test code = 3262) Neg Negative - Negati ve POCT U PROT (test code = 3259) Trace Negative - Negat leonid POCT U GLU (test code = 3256) Trace Negative - Negati ve POCT U KETONE (test code = 3258) None Negative - Neg ative POCT U UROBILI (test code = 3260) . 0.2-1 POCT U BILI (test code = 3261) . Negative - Negat leonid POCT U BLD (test code = 3257) Trace Negative - Negati ve POCT U COLOR (test code = 3266) POCT U APPEAR (test code = 3267) [facility] URINALYSIS W SPECIFIC [id number] 20:31:00* Test Item Value Reference Range Interpretation Comme nts POCT U SP GRAV (test code = 3255) . 1.005-1.025 POCT PH U (test code = 3254) 6 mg/dl 5-8 POCT U LEUK EST (test code = 3263) 1+ Negative - Negative POCT U NIT (test code = 3262) Neg Negative - Negati ve POCT U PROT (test code = 3259) Trace Negative - Negat leonid POCT U GLU (test code = 3256) Trace Negative - Negati ve POCT U KETONE (test code = 3258) None Negative - Neg ative POCT U UROBILI (test code = 3260) . 0.2-1 POCT U BILI (test code = 3261) . Negative - Negat leonid POCT U BLD (test code = 3257) Trace Negative - Negati ve POCT U COLOR (test code = 3266) POCT U APPEAR (test code = 3267) [facility] URINALYSIS W SPECIFIC [id number] 20:31:00* Test Item Value Reference Range Interpretation Comme nts POCT U SP GRAV (test code = 3255) . 1.005-1.025 POCT PH U (test code = 3254) 6 mg/dl 5-8 POCT U LEUK EST (test code = 3263) 1+ Negative - Negative POCT U NIT (test code = 3262) Neg Negative - Negati ve POCT U PROT (test code = 3259) Trace Negative - Negat leonid POCT U GLU (test code = 3256) Trace Negative - Negati ve POCT U KETONE (test code = 3258) None Negative - Neg ative POCT U UROBILI (test code = 3260) . 0.2-1 POCT U BILI (test code = 3261) . Negative - Negat leonid POCT U BLD (test code = 3257) Trace Negative - Negati ve POCT U COLOR (test code = 3266) POCT U APPEAR (test code = 3267) [facility] URINALYSIS W SPECIFIC [id number] 19:58:00* Test Item Value Reference Range Interpretation Comme nts POCT U SP GRAV (test code = 3255) . 1.005-1.025 POCT PH U (test code = 3254) 5 mg/dl 5-8 POCT U LEUK EST (test code = 3263) 1+ Negative - Negative POCT U NIT (test code = 3262) neg Negative - Negati ve POCT U PROT (test code = 3259) trace Negative - Negat leonid POCT U GLU (test code = 3256) neg Negative - Negati ve POCT U KETONE (test code = 3258) 3+ Negative - Neg ative POCT U UROBILI (test code = 3260) . 0.2-1 POCT U BILI (test code = 3261) . Negative - Negat leonid POCT U BLD (test code = 3257) neg Negative - Negati ve POCT U COLOR (test code = 3266) . POCT U APPEAR (test code = 3267) . [facility] URINALYSIS W SPECIFIC [id number] 20:39:00* Test Item Value Reference Range Interpretation Comme nts POCT U SP GRAV (test code = 3255) . 1.005-1.025 POCT PH U (test code = 3254) 7 mg/dl 5-8 POCT U LEUK EST (test code = 3263) Neg Negative - Negative POCT U NIT (test code = 3262) Neg Negative - Negati ve POCT U PROT (test code = 3259) Trace Negative - Negat leonid POCT U GLU (test code = 3256) Nml Negative - Negati ve POCT U KETONE (test code = 3258) None Negative - Neg ative POCT U UROBILI (test code = 3260) . 0.2-1 POCT U BILI (test code = 3261) . Negative - Negat leonid POCT U BLD (test code = 3257) Trace Negative - Negati ve POCT U COLOR (test code = 3266) POCT U APPEAR (test code = 3267) [facility] GLUCOSE (AUTOMATED)2023-08-18 18:48:31* Test Item Value Reference Range Interpretation Comme nts POCT GLU (test code = 4240531955) 126 mg/dL 70-110 H Lab Interpretation (test cod e = 11191-9) Abnormal [facility] URINALYSIS W SPECIFIC [id number] 21:56:00* Test Item Value Reference Range Interpretation Comme nts POCT U SP GRAV (test code = 3255) . 1.005-1.025 POCT PH U (test code = 3254) . 5-8 POCT U LEUK EST (test code = 3263) . Negative - N egative POCT U NIT (test code = 3262) . Negative - Negati ve POCT U PROT (test code = 3259) trace Negative - Negat leonid POCT U GLU (test code = 3256) neg Negative - Negati ve POCT U KETONE (test code = 3258) . Negative - Neg ative POCT U UROBILI (test code = 3260) . 0.2-1 POCT U BILI (test code = 3261) . Negative - Negat leonid POCT U BLD (test code = 3257) . Negative - Negati ve POCT U COLOR (test code = 3266) . POCT U APPEAR (test code = 3267) . [facility] URINALYSIS W SPECIFIC [id number] 20:39:00* Test Item Value Reference Range Interpretation Comme nts POCT U SP GRAV (test code = 3255) . 1.005-1.025 POCT PH U (test code = 3254) 7 mg/dl 5-8 POCT U LEUK EST (test code = 3263) Trace Negative - Negative POCT U NIT (test code = 3262) Neg Negative - Negati ve POCT U PROT (test code = 3259) Trace Negative - Negat leonid POCT U GLU (test code = 3256) Nml Negative - Negati ve POCT U KETONE (test code = 3258) None Negative - Neg ative POCT U UROBILI (test code = 3260) . 0.2-1 POCT U BILI (test code = 3261) . Negative - Negat leonid POCT U BLD (test code = 3257) Trace Negative - Negati ve POCT U COLOR (test code = 3266) . POCT U APPEAR (test code = 3267) [facility] URINALYSIS W SPECIFIC [id number] 20:12:00* Test Item Value Reference Range Interpretation Comme nts POCT U SP GRAV (test code = 3255) . 1.005-1.025 POCT PH U (test code = 3254) 7 mg/dl 5-8 POCT U LEUK EST (test code = 3263) trace Negative - Negative POCT U NIT (test code = 3262) negative Negative - Negati ve POCT U PROT (test code = 3259) trace Negative - Negat leonid POCT U GLU (test code = 3256) negative Negative - Negati ve POCT U KETONE (test code = 3258) negative Negative - Neg ative POCT U UROBILI (test code = 3260) . 0.2-1 POCT U BILI (test code = 3261) . Negative - Negat leonid POCT U BLD (test code = 3257) negative Negative - Negati ve POCT U COLOR (test code = 3266) . POCT U APPEAR (test code = 3267) . [facility] URINALYSIS W SPECIFIC [id number] 20:12:00* Test Item Value Reference Range Interpretation Comme nts POCT U SP GRAV (test code = 3255) . 1.005-1.025 POCT PH U (test code = 3254) 7 mg/dl 5-8 POCT U LEUK EST (test code = 3263) trace Negative - Negative POCT U NIT (test code = 3262) negative Negative - Negati ve POCT U PROT (test code = 3259) trace Negative - Negat leonid POCT U GLU (test code = 3256) negative Negative - Negati ve POCT U KETONE (test code = 3258) negative Negative - Neg ative POCT U UROBILI (test code = 3260) . 0.2-1 POCT U BILI (test code = 3261) . Negative - Negat leonid POCT U BLD (test code = 3257) negative Negative - Negati ve POCT U COLOR (test code = 3266) . POCT U APPEAR (test code = 3267) . [facility] URINALYSIS W SPECIFIC [id number] 20:22:00* Test Item Value Reference Range Interpretation Comme nts POCT U SP GRAV (test code = 3255) . 1.005-1.025 POCT PH U (test code = 3254) 8 mg/dl 5-8 POCT U LEUK EST (test code = 3263) Trace Negative - Negative POCT U NIT (test code = 3262) POS Negative - Negati ve POCT U PROT (test code = 3259) 1+ Negative - Negat leonid POCT U GLU (test code = 3256) Neg Negative - Negati ve POCT U KETONE (test code = 3258) None Negative - Neg ative POCT U UROBILI (test code = 3260) . 0.2-1 POCT U BILI (test code = 3261) . Negative - Negat leonid POCT U BLD (test code = 3257) Trace Negative - Negati ve POCT U COLOR (test code = 3266) POCT U APPEAR (test code = 3267) [facility] URINALYSIS W SPECIFIC [id number] 13:10:00* Test Item Value Reference Range Interpretation Comme nts POCT U SP GRAV (test code = 3255) . 1.005-1.025 POCT PH U (test code = 3254) 5 mg/dl 5-8 POCT U LEUK EST (test code = 3263) Trace Negative - Negative POCT U NIT (test code = 3262) Neg Negative - Negati ve POCT U PROT (test code = 3259) Trace Negative - Negat leonid POCT U GLU (test code = 3256) Neg Negative - Negati ve POCT U KETONE (test code = 3258) None Negative - Neg ative POCT U UROBILI (test code = 3260) . 0.2-1 POCT U BILI (test code = 3261) . Negative - Negat leonid POCT U BLD (test code = 3257) Trace Negative - Negati ve POCT U COLOR (test code = 3266) . POCT U APPEAR (test code = 3267) . [facility] URINALYSIS W SPECIFIC [id number] 15:32:00* Test Item Value Reference Range Interpretation Comme nts POCT U SP GRAV (test code = 3255) . 1.005-1.025 POCT PH U (test code = 3254) 5 mg/dl 5-8 POCT U LEUK EST (test code = 3263) 1+ Negative - Negative POCT U NIT (test code = 3262) negative Negative - Negati ve POCT U PROT (test code = 3259) trace Negative - Negat leonid POCT U GLU (test code = 3256) negative Negative - Negati ve POCT U KETONE (test code = 3258) negative Negative - Neg ative POCT U UROBILI (test code = 3260) . 0.2-1 POCT U BILI (test code = 3261) . Negative - Negat leonid POCT U BLD (test code = 3257) negative Negative - Negati ve POCT U COLOR (test code = 3266) . POCT U APPEAR (test code = 3267) . [facility] [id number] 19:09:35* Test Item Value Reference Range Interpretation Comments RACE (test code = 8890931898) WEIGHT (test code = 2704224357) 278.7 lbs GEST. AGE (test code = 4134370906) 15,2 INS. DEP (test code = 7103721554) Yes LMP (test code = 8108126891) [id number] US DATE (test code = 9656127167) PE DATE (test code = 5285142966) METHOD (test code = 0346442086) LMP MULT GEST (test code = 4565970921) No NTD HX (test code = 7009965969) No INITAL OR REPEAT (test code = 8333953910) Initial Testing SMOKER (test code = 2037089155) No RH (test code = 4502486727) INHIBIN (test code = 1653511737) 124.0 pg/mL AFP-MS (test code = 1803751399) 13.9 ng/mL ESTRIOL (test code = 0625492583) 0.55 ng/mL BHCG DOWNS (test code = 4508081574) 02813.0 mIU/mL AFP-MS MoM (test code = 9954189126) 0.90 BHCG MoM (test code = 0494437386) 1.34 INHIBIN MoM (test code = 5695509896) 0.79 E3 MoM (test code = 8538662742) 0.90 EQ AGE RSK (test code = 4804995676) < 15.0 less than rob t of a 15.0 year old DS APR (test code = 9981334439) 1:1100 DS INTERP (test code = 6297870729) See Note The risk of D own syndrome is LESS than the screening cut-off. Nofollow-up is indicated regarding this result. DS RSK (test code = 6637609390) 1:6680 The risk at mid-trimester is equal to 1:6680 DS SCRN (test code = 1504425968) Negative TRISOMY 18 (test code = 0786962579) See Note These serum m arker levels are not consistent with the pattern seen inTrisomy 18 pregnancies. Maternal serum screening will detectapproximately 60% of Trisomy 18 pregnancies. ES RSK (test code = 8950459700) 1:16362 The risk of Maury oli 18 is equal to 1:25949Wuc Trisomy 18 cut-off is 1:45 ES SCRN (test code = 4460940832) Negative OSB INTERP (test code = 2785056052) See Note The maternal serum AFP result is NOT elevated for a of thisgestational age. The risk of an open neural tube defect is less thanthe screening cut-off. OSB RSK (test code = 0524540047) 1:1690 The risk of OSB is equal to 1:1690The OSB cut-off is 2.06 (1:104) OSB SCRN (test code = [id number]) Negative INTERPRETATION (test code = 7345170105) N INTERPRETATION: SCREEN NEGATIVE [facility] URINALYSIS W SPECIFIC [id number] 20:47:00* Test Item Value Reference Range Interpretation Comme nts POCT U SP GRAV (test code = 3255) . 1.005-1.025 POCT PH U (test code = 3254) . 5-8 POCT U LEUK EST (test code = 3263) . Negative - Negative POCT U NIT (test code = 3262) . Negative - Negati ve POCT U PROT (test code = 3259) trace Negative - Negat leonid POCT U GLU (test code = 3256) negative Negative - Negati ve POCT U KETONE (test code = 3258) . Negative - Neg ative POCT U UROBILI (test code = 3260) . 0.2-1 POCT U BILI (test code = 3261) . Negative - Negat leonid POCT U BLD (test code = 3257) . Negative - Negati ve POCT U COLOR (test code = 3266) . POCT U APPEAR (test code = 3267) . [facility] URINALYSIS W SPECIFIC [id number] 14:48:00* Test Item Value Reference Range Interpretation Comme nts POCT U SP GRAV (test code = 3255) . 1.005-1.025 POCT PH U (test code = 3254) 5 mg/dl 5-8 POCT U LEUK EST (test code = 3263) negative Negative - Negative POCT U NIT (test code = 3262) positive Negative - Negati ve POCT U PROT (test code = 3259) trace Negative - Negat leonid POCT U GLU (test code = 3256) negative Negative - Negati ve POCT U KETONE (test code = 3258) negative Negative - Neg ative POCT U UROBILI (test code = 3260) . 0.2-1 POCT U BILI (test code = 3261) . Negative - Negat leonid POCT U BLD (test code = 3257) negative Negative - Negati ve POCT U COLOR (test code = 3266) . POCT U APPEAR (test code = 3267) . [facility] URINALYSIS W/O SPECIFIC [id number] 15:19:00* Test Item Value Reference Range Interpretation Comme nts POCT PH U (test code = 3254) 6 mg/dl 5-8 POCT U LEUK EST (test code = 3263) trace Negative - Negative POCT U NIT (test code = 3262) neg Negative - Negati ve POCT U PROT (test code = 3259) trace Negative - Negat leonid POCT U GLU (test code = 3256) neg Negative - Negati ve POCT U KETONE (test code = 3258) neg Negative - Neg ative POCT U BLD (test code = 3257) neg Negative - Negati ve [facility] URINALYSIS W/O SPECIFIC [id number] 15:19:00* Test Item Value Reference Range Interpretation Comme nts POCT PH U (test code = 3254) 6 mg/dl 5-8 POCT U LEUK EST (test code = 3263) trace Negative - Negative POCT U NIT (test code = 3262) neg Negative - Negati ve POCT U PROT (test code = 3259) trace Negative - Negat leonid POCT U GLU (test code = 3256) neg Negative - Negati ve POCT U KETONE (test code = 3258) neg Negative - Neg ative POCT U BLD (test code = 3257) neg Negative - Negati ve [facility] URINALYSIS W/O SPECIFIC [id number] 15:19:00* Test Item Value Reference Range Interpretation Comme nts POCT PH U (test code = 3254) 6 mg/dl 5-8 POCT U LEUK EST (test code = 3263) trace Negative - Negative POCT U NIT (test code = 3262) neg Negative - Negati ve POCT U PROT (test code = 3259) trace Negative - Negat leonid POCT U GLU (test code = 3256) neg Negative - Negati ve POCT U KETONE (test code = 3258) neg Negative - Neg ative POCT U BLD (test code = 3257) neg Negative - Negati ve [facility] URINALYSIS W/O SPECIFIC [id number] 15:19:00* Test Item Value Reference Range Interpretation Comme nts POCT PH U (test code = 3254) 6 mg/dl 5-8 POCT U LEUK EST (test code = 3263) trace Negative - Negative POCT U NIT (test code = 3262) neg Negative - Negati ve POCT U PROT (test code = 3259) trace Negative - Negat leonid POCT U GLU (test code = 3256) neg Negative - Negati ve POCT U KETONE (test code = 3258) neg Negative - Neg ative POCT U BLD (test code = 3257) neg Negative - Negati ve [facility] URINALYSIS W/O SPECIFIC [id number] 15:19:00* Test Item Value Reference Range Interpretation Comme nts POCT PH U (test code = 3254) 6 mg/dl 5-8 POCT U LEUK EST (test code = 3263) trace Negative - Negative POCT U NIT (test code = 3262) neg Negative - Negati ve POCT U PROT (test code = 3259) trace Negative - Negat leonid POCT U GLU (test code = 3256) neg Negative - Negati ve POCT U KETONE (test code = 3258) neg Negative - Neg ative POCT U BLD (test code = 3257) neg Negative - Negati ve [facility] URINALYSIS W/O SPECIFIC [id number] 15:19:00* Test Item Value Reference Range Interpretation Comme nts POCT PH U (test code = 3254) 6 mg/dl 5-8 POCT U LEUK EST (test code = 3263) trace Negative - Negative POCT U NIT (test code = 3262) neg Negative - Negati ve POCT U PROT (test code = 3259) trace Negative - Negat leonid POCT U GLU (test code = 3256) neg Negative - Negati ve POCT U KETONE (test code = 3258) neg Negative - Neg ative POCT U BLD (test code = 3257) neg Negative - Negati ve [facility] URINALYSIS W/O SPECIFIC [id number] 15:19:00* Test Item Value Reference Range Interpretation Comme nts POCT PH U (test code = 3254) 6 mg/dl 5-8 POCT U LEUK EST (test code = 3263) trace Negative - Negative POCT U NIT (test code = 3262) neg Negative - Negati ve POCT U PROT (test code = 3259) trace Negative - Negat leonid POCT U GLU (test code = 3256) neg Negative - Negati ve POCT U KETONE (test code = 3258) neg Negative - Neg ative POCT U BLD (test code = 3257) neg Negative - Negati ve [facility] URINALYSIS W/O SPECIFIC [id number] 15:19:00* Test Item Value Reference Range Interpretation Comme nts POCT PH U (test code = 3254) 6 mg/dl 5-8 POCT U LEUK EST (test code = 3263) trace Negative - Negative POCT U NIT (test code = 3262) neg Negative - Negati ve POCT U PROT (test code = 3259) trace Negative - Negat leonid POCT U GLU (test code = 3256) neg Negative - Negati ve POCT U KETONE (test code = 3258) neg Negative - Neg ative POCT U BLD (test code = 3257) neg Negative - Negati ve [facility] URINALYSIS W/O SPECIFIC [id number] 15:19:00* Test Item Value Reference Range Interpretation Comme nts POCT PH U (test code = 3254) 6 mg/dl 5-8 POCT U LEUK EST (test code = 3263) trace Negative - Negative POCT U NIT (test code = 3262) neg Negative - Negati ve POCT U PROT (test code = 3259) trace Negative - Negat leonid POCT U GLU (test code = 3256) neg Negative - Negati ve POCT U KETONE (test code = 3258) neg Negative - Neg ative POCT U BLD (test code = 3257) neg Negative - Negati ve [facility] URINALYSIS W/O SPECIFIC [id number] 15:19:00* Test Item Value Reference Range Interpretation Comme nts POCT PH U (test code = 3254) 6 mg/dl 5-8 POCT U LEUK EST (test code = 3263) trace Negative - Negative POCT U NIT (test code = 3262) neg Negative - Negati ve POCT U PROT (test code = 3259) trace Negative - Negat leonid POCT U GLU (test code = 3256) neg Negative - Negati ve POCT U KETONE (test code = 3258) neg Negative - Neg ative POCT U BLD (test code = 3257) neg Negative - Negati ve [facility] [id number] 15:17:00* Test Item Value Reference Range Interpretation Comme nts POCT PREG (test code = 1605) Positive On board controls acceptable with C Line (test code = 3574) Yes POCT PREG LOT # (test code = 3575) POCT PREG TEST DATE ( test code = 3576) [facility] [id number] 15:17:00* Test Item Value Reference Range Interpretation Comme nts POCT PREG (test code = 1605) Positive On board controls acceptable with C Line (test code = 3574) Yes POCT PREG LOT # (test code = 3575) POCT PREG TEST DATE ( test code = 3576) [facility] [id number] 15:17:00* Test Item Value Reference Range Interpretation Comme nts POCT PREG (test code = 1605) Positive On board controls acceptable with C Line (test code = 3574) Yes POCT PREG LOT # (test code = 3575) POCT PREG TEST DATE ( test code = 3576) [facility] [id number] 15:17:00* Test Item Value Reference Range Interpretation Comme nts POCT PREG (test code = 1605) Positive On board controls acceptable with C Line (test code = 3574) Yes POCT PREG LOT # (test code = 3575) POCT PREG TEST DATE ( test code = 3576) [facility] [id number] 15:17:00* Test Item Value Reference Range Interpretation Comme nts POCT PREG (test code = 1605) Positive On board controls acceptable with C Line (test code = 3574) Yes POCT PREG LOT # (test code = 3575) POCT PREG TEST DATE ( test code = 3576) [facility] [id number] 15:17:00* Test Item Value Reference Range Interpretation Comme nts POCT PREG (test code = 1605) Positive On board controls acceptable with C Line (test code = 3574) Yes POCT PREG LOT # (test code = 3575) POCT PREG TEST DATE ( test code = 3576) [facility] [id number] 15:17:00* Test Item Value Reference Range Interpretation Comme nts POCT PREG (test code = 1605) Positive On board controls acceptable with C Line (test code = 3574) Yes POCT PREG LOT # (test code = 3575) POCT PREG TEST DATE ( test code = 3576) [facility] [id number] 15:17:00* Test Item Value Reference Range Interpretation Comme nts POCT PREG (test code = 1605) Positive On board controls acceptable with C Line (test code = 3574) Yes POCT PREG LOT # (test code = 3575) POCT PREG TEST DATE ( test code = 3576) [facility] [id number] 15:17:00* Test Item Value Reference Range Interpretation Comme nts POCT PREG (test code = 1605) Positive On board controls acceptable with C Line (test code = 3574) Yes POCT PREG LOT # (test code = 3575) POCT PREG TEST DATE ( test code = 3576) [facility] [id number] 15:17:00* Test Item Value Reference Range Interpretation Comme nts POCT PREG (test code = 1605) Positive On board controls acceptable with C Line (test code = 3574) Yes POCT PREG LOT # (test code = 3575) POCT PREG TEST DATE ( test code = 3576) [facility], THIRD [id number] 02:44:54* Test Item Value Reference Range Interpretation Comme nts TSH, THIRD GENERATION (test code = 2821) 3.090 UIU/ML 0.400-4.100 UNLESS OTHERWISE INDICATED, ALL TESTING PERFORMED AT [facility] [address] [place] [address] GATE PERSON: YUIDTH ALEXANDER M.D. CLIA NUMBER [id number] [facility] [place]. [id number] COMPREHENSIVE METABOLIC [id number] 04:55:22* Test Item Value Reference Range Interpretation Comme nts GLUCOSE (test code = 2217) 81 MG/DL 70-99 BUN (test code = 2208) 13 MG/DL 6-20 CREATININE (test code = 2214) 0.67 MG/DL 0.60-1.30 eGFR (2020 CKD-EPI) (test code = 32879) 126 ML/MIN/1.73 >60 CALC BUN/CREAT (test code = 2235) 19 RATIO 6-28 SODIUM (test code = 2231) 140 MEQ/L 133-146 POTASSIUM (test code = 2228) 4.1 MEQ/L 3.5-5.4 CHLORIDE (test code = 2215) 104 MEQ/L 95-107 CARBON DIOXIDE (test code = 2206) 20 MEQ/L 19-31 CALCIUM (test code = 2209) 9.8 MG/DL 8.5-10.5 PROTEIN, TOTAL (test code = 2229) 7.4 G/DL 6.1-8.3 ALBUMIN (test code = 2201) 4.5 G/DL 3.5-5.2 CALC GLOBULIN (test code = 2240) 2.9 G/DL 1.9-3.7 CALC A/G RATIO (test code = 2234) 1.6 RATIO 1.0-2.6 BILIRUBIN, TOTAL (test code = 2207) 0.2 MG/DL See_Comment [Automated me ssage] The system which generated this result transmitted reference range: <=1.2. The reference range was not used to interpret this result as normal/abnormal. ALKALINE PHOSPHATASE (test code = 2204) 90 U/L 40-117 AST (test code = 2218) 19 U/L 9-40 ALT (test code = 2219) 17 U/L 5-40 LIPID [id number] 04:55:22* Test Item Value Reference Range Interpretation Comme nts CHOLESTEROL (test code = 2210) 183 MG/DL <200 TRIGLYCERIDES (test code = 2232) 219 MG/DL <150 H HDL CHOLESTEROL (test code = 2220) 38 MG/DL >39 L CALC LDL CHOL (test code = 2237) 111 MG/DL <100 H NOTE: CALCULATED LDL IS BASED ON ALEJA-FANG METHOD WHICHINCLUDES ADJUSTABLE TRIGLYCERIDE:VLDL CHOLESTEROL RATIO.THIS FACTOR VARIES BY MEASURED TRIGLYCERIDE AND NON-HDLCHOLESTEROL CONCENTRATIONS WITH INCREASED CALCULATED LDL SEENIN HIGHER TRIGLYCERIDE OR LOWER NON-HDL SPECIMENS. FOR MOREINFORMATION, SEE CLIENT ANNOUNCEMENT AT [email or web address] RISK RATIO LDL/HDL (test code = 2238) 2.92 RATIO <3.22 HEMOGLOBIN [id number] 04:40:39* Test Item Value Reference Range Interpretation Comme nts HEMOGLOBIN A1c (test code = 78018) 6.3 % 4.2-5.6 H POLISH DIABETE S ASSOCIATION GUIDELINES FOR HGB A1C: PREDIABETES/INCREASED RISK . . . . . . . 5.7-6.4% DIAGNOSIS OF DIABETES . . . . . . . . . >=6.5% WITH CONFIRMATION OR APPROPRIATE SYMPTOMS NOTE: ASSAY MAY BE AFFECTED BY HEMOGLOBINOPATHIES (SICKLE CELL ANEMIA, S-C DISEASE, OTHERS) OR ARTIFICIALLY LOWERED BY DECREASED RED CELL SURVIVAL (HEMOLYTIC ANEMIAS, BLOOD LOSS, ETC.). CONSIDER ALTERNATE TESTING OR LABORATORY CONSULTATION. UNLESS OTHERWISE INDICATED, ALL TESTING PERFORMED AT [facility] [address] [place] [address] GATE PERSON: YUDITH ALEXANDER M.D. CLIA NUMBER [id number] [facility] [place]. [id number] CBC W/AUTO DIFF WITH [id number] 02:13:27* Test Item Value Reference Range Interpretation Comme nts WBC (test code = 1001) 9.2 K/UL 3.5-11.0 RBC (test code = 1002) 4.81 M/UL 3.80-5.40 HEMOGLOBIN (test code = 1003) 14.3 G/DL 11.5-15.5 HEMATOCRIT (test code = 1004) 42.9 % 34.0-45.0 MCV (test code = 1005) 89.2 fL 80.0-99.0 MCH (test code = 1006) 29.7 PG 25.0-33.0 MCHC (test code = 1007) 33.3 G/DL 31.0-36.0 RDW (test code = 1038) 12.3 % 11.5-15.0 NEUTROPHILS (test code = 1008) 76.6 % LYMPHOCYTES (test code = 1010) 15.4 % MONOCYTES (test code = 1011) 5.6 % EOSINOPHILS (test code = 1012) 1.8 % BASOPHILS (test code = 1013) 0.3 % IMMATURE GRANULOCYTES (test code = 1036) 0.3 % NUCLEATED RBCS (test code = 1065) 0.0 /100 WBC'S See_Comment [Automated messa ge] The system which generated this result transmitted reference range: 0.0. The reference range was not used to interpret this result as normal/abnormal. PLATELET COUNT (test code = 1015) 272 K/UL 130-400 ABSOLUTE NEUTROPHILS (test code = 1066) 7.04 K/UL 1.50-7.50 ABSOLUTE LYMPHOCYTES (test code = 1067) 1.42 K/UL 1.00-4.00 ABSOLUTE MONOCYTES (test code = 1068) 0.52 K/UL 0.20-1.00 ABSOLUTE EOSINOPHILS (test code = 1040) 0.17 K/UL 0.00-0.50 ABSOLUTE BASOPHILS (test code = 1069) 0.03 K/UL 0.00-0.20 ABS IMMATURE GRANULOCYTES (test code = 1020) 0.03 K/UL 0.00-0.10 ABS NUCLEATED RBCS (test code = 90679) 0.00 K/UL 0.00-0.11 PAP TEST, THINPREP, [id number] 14:51:56* Test Item Value Reference Range Interpretation Comme nts SOURCE: (test code = 8001) Cervical/End ocervical SLIDES: (test code = 8011) 1 LMP: (test code = 8021) 01/07/2023 SPECIMEN ADEQUACY: (test code = 90395) (NOTE) Satisfactory for evaluation. Endocervical cells/transformation zone component not identified. INTERPRETATION: (test code = 52054) ASCUS/EPITH. ABNORMALITY; SEE BELOW A -- ---- EPITHELIAL CELL ABNORMALITY Atypical squamous cells of undetermined significance (ASC-US) OTHER COMMENTS: (test code = 8081) (NOTE) Fungal organisms consistent with Dania present. STEWARD/STEWARDESS DECK: (test code = 8101) FIORDALIZA Herrera(ASCP )[facility] PATHOLOGIST INTERPRETATION BY: (test code = 8122) Fay Gómez DO LOCATION: (test code = 85556) (NOTE) Specimens proces sed and interpreted at [facility], [address] [place], [place] [id number], , CLIA: [id number] CPT: (test code = 8140) (NOTE) 53662, 15553 UNL ESS OTHERWISE INDICATED, COMPUTER AIDED AND STEWARD/STEWARDESS DECK SCREENING PERFORMED. The Pap test is a screening test with an inherent, but low probability of error. Your patient should be reminded to consult you immediately if she experiences any suspicious signs or symptoms, regardless of her Pap test result. An alternate report format containing images or consolidated prior Pap history is available as applicable. UNLESS OTHERWISE INDICATED, ALL TESTING PERFORMED AT [facility] [address] [place] [address] GATE PERSON: YUDITH ALEXANDER M.D. CLIA NUMBER [id number] [place] [id number] CT/NG, NAAT, [id number] 19:11:22* Test Item Value Reference Range Interpretation Comme nts CHLAMYDIA, NAAT, URINE (test code = 02147) NEGATIVE NEGATIVE Testing is perfo rmed with Derek ELLEN 6800/8800 systems usingreal-time polymerase chain reaction (PCR) method. A negative result does not exclude low level infection, specimensampling error, or collection error. GONORRHEA, NAAT, URINE (test code = 63481) NEGATIVE NEGATIVE Testing is perfo rmed with Derek ELLEN 6800/8800 systems usingreal-time polymerase chain reaction (PCR) method. A negative result does not exclude low level infection, specimensampling error, or collection error. HIV 1/2 4TH GEN, RFLX [id number] 11:01:04* Test Item Value Reference Range Interpretation Comme nts HIV 1/2 4TH GEN, RFLX CONF ( test code = 3514) NON-REACTIVE NON-REACTIVE [id number] 09:03:46* Test Item Value Reference Range Interpretation Comme nts RPR RESULT (test code = 3501) NON-REACTIVE NON-REACTIVE RPR TITER (test code = 3500) NOT INDIC. TITER NOT INDIC. UNLESS OTHERWISE INDICATED, ALL TESTING PERFORMED AT [facility] [address] [place] [address] GATE PERSON: YUDITH ALEXANDER M.D. IA NUMBER [id number] [facility] [place]. [id number] History and Physical Notes Date/Time Note Provider Source 2023-10-03 13:42:34 [id number] ormatting of this note is different from the original.TRIAGE/L&D HISTORY & PHYSICALIDENTIFYING DATAIan Roca is 22 year old, /White, 38w3d, female with RONNIE 10/14/2023, by Last Menstrual Period.: 1999MRN: [id number] Care Physician: Peterson Peñaloza COMPLAINTElevated BP in clinicHISTORY OF PRESENT ILLNESSIan Roca is a 22 year old at 38w3d who presents for elevated BP in clinic. The patient reports having a headache for the past 2 days. In clinic today, she had BP of 141/91 followed by 141/93. She otherwise is feeling well today and her headache has improved.Patient denies vaginal bleeding, denies leakage of fluid, denies contractions.Patient denies nausea/vomiting, denies RUQ pain, denies visual abnormalities.Endorses normal movement.PAST OBSTETRIC HISTORYOB HistoryGravida Para Term AB [id number] IAB Ectopic Multiple Live Births# Outcome Date GA Lbr Broderick/2nd Weight Sex Delivery Anes PTL Lv1 CurrentPAST MEDICAL HISTORYProblem list:Patient Active Problem ListDiagnosis Date NotedElevated blood pressure reading without diagnosis of hypertension 8 weeks gestation of 10/03/2023Morbid obesity with body mass index of 50 or higher 10/03/2023Tubal ligation status 07/16/2023Uterine leiomyoma, unspecified location 05/01/2023typical squamous cells of undetermined significance (ASCUS) on Papanicolaou smear of cervix 04/23/2023regestational diabetes mellitus, modified White class B 03/14/2023BS (group B streptococcus) UTI complicating 03/14/2023Supervision of high-risk 03/12/2023Obesity in 03/12/2023Operations:Past Surgical History:Procedure Laterality DateINCISION AND DRAINAGE OF PERITONSILLAR ABCESS(SHX) ast Medical History:Diagnosis DatePrediabetes 2020not on meds at this time.CURRENT HEALTH STATUSMedications:Current Facility-Administered MedicationsMedication Dose Route Frequency Last Rate Last KsvshS3D-PM IV infusion 1,000 mL 1,000 mL IV Infusion TITRATE 125 mL/hr at 10/03/23 1510 1,000 mL at 10/03/23 1510dextrose 50 % in water (D50W) injection 25 mL 25 mL Slow IV Push PRNglucagon (GLUCAGEN DIAGNOSTIC KIT) injection 1 mg 1 mg Intramuscular PRNlactated ringers IV infusion 500 mL 500 mL IV Infusion PRN - SEE INSTRUCTIONSlidocaine 1% (PF) (XYLOCAINE) injection 0.3 mL 0.3 mL Infiltration PRN - SEE INSTRUCTIONSlidocaine 1% (XYLOCAINE) 10 mg/mL (1 %) injection 50 mL 50 mL Infiltration PRN - SEE INSTRUCTIONSpenicillin g potassium 5 Million Units in NaCl 0.9% (NS) 100 mL MINI-BAG 5 Million Units IV Piggyback ONCEFollowed bypenicillin GK 3 million units in NS 50 mL IV infusion (CNR) 3 Million Units IV Piggyback Q4H ABXSliding Scale Insulin Subcutaneous SEE-INSTRUCTIONSsodium citrate-citric acid (BICITRA) 500-334 mg/5 mL solution 30 mL 30 mL Oral PRE-PROCEDURE ONCEAllergies and drug reactions: Patient has no known allergies.HOME MEDICATIONSMedications Prior to AdmissionMedication Sig Dispense Refill Last DosemetFORMIN 500 mg tablet Take 2 tablets by mouth with evening meal. 60 tablet 3blood sugar diagnostic (FREESTYLE LITE STRIPS) strip Check blood glucose 4x daily 100 Each 3Blood-Glucose Meter (FREESTYLE LITE METER) Kit Check blood glucose 4x daily 1 Kit 0lancets (FREESTYLE LANCETS) 28 gauge Misc Check glucose 4x daily 100 Each 3PNV 67-iron ps-folate no.1-dha (VITAFOL ULTRA) 29 mg iron- 1 mg-200 mg Cap Take 1 capsule by mouth daily. 90 capsule 1cephALEXin (KEFLEX) 500 mg capsule Take 1 capsule by mouth daily. Until delivery 30 capsule 3 3aspirin 81 mg EC tablet Take 1 tablet by mouth daily for 150 days. 30 tablet 4 3proMETHazine 12.5 mg tablet Take 1 tablet by mouth every 6 (six) hours as needed for Nausea and Vomiting (N/V) (Pt is ) for up to 60 doses. 30 tablet 1 > MonthSOCIAL HISTORYTobacco History:Social HistoryTobacco UseSmoking Status NeverSmokeless Tobacco NeverDrug History:Social HistorySubstance and Sexual ActivityDrug Use Not CurrentlyAlcohol History:Social HistorySubstance and Sexual ActivityAlcohol Use Not CurrentlyFAMILY HISTORYFamily HistoryProblem Relation Age of OnsetNo Significant Medical Problems MotherNo Significant Medical Problems FatherREVIEW OF SYSTEMSGeneral: negativeSkin: negativeHEENT: negativeNeck: negativeHEME: negativeResp: negativeCardio: negativeGI: negativeGU: negativeEndo: negativeNeuro: negativeBack: negativeMSS: negativePsych: negativeVITAL SIGNSBP: (122-141)/(71-93)Temp: [35.9 ?C (96.6 ?F)-36.6 ?C (97.9 ?F)]Temp source: Oral (10/03 1400)Pulse: [83-110]Resp: [18-20]SpO2: [96 %-99 %]Height: [160 cm (5' 2.99")-160 cm (5' 3")]Weight: [134.4 kg (296 lb 4 oz)-135.2 kg (298 lb)]BMI (calculated): [52.48-52.8]PHYSICAL EXAMINATIONSGeneral: patient alert and in no acute distressHEENT: symmetric, negative for massesLungs: unlabored breathingCardiology: peripheral pulses intact and regularAbdomen: soft, non-tender, non-distended, and GravidExtremities: no clubbing, cyanosis, or edemaNeuro: patient moving all extremities, no facial droopGU: SVE 2/0/-3REVIEW OF LABORATORY, PATHOLOGY, AND RADIOLOGY DATALab results:Type & ScreenLab ResultsComponent Value Date/TimeIABORH O POSITIVE 10/03/2023 03:11 PMIAT Negative 10/03/2023 03:11 PMSerologiesLab ResultsComponent Value Date/TimeVZVIGG Positive 03/31/2023 11:42 AMRUBG Negative 03/12/2023 12:24 PMSYPIGG Non-reactive 08/19/2023 03:39 PMHBSAG Negative 03/12/2023 12:24 PMHBSAG 0.07 03/12/2023 12:24 PMChlamydiaLab ResultsComponent Value Date/TimeVCAA Negative 09/16/2023 02:15 PMGroup B StrepNo results found for: "CGB"GTTLab ResultsComponent Value Date/EdbeWUHE6SO 226 (H) 03/12/2023 11:28 AMCBCLab ResultsComponent Value Date/TimeHGB 12.5 10/03/2023 03:11 PMHCT 36.6 10/03/2023 03:11 PMPLT 198 10/03/2023 03:11 PMActive Hospital ProblemsDiagnosis Date NotedElevated blood pressure reading without diagnosis of hypertension weeks gestation of 10/03/2023Morbid obesity with body mass index of 50 or higher 10/03/2023Tubal ligation status 07/16/2023Uterine leiomyoma, unspecified location 05/01/2023typical squamous cells of undetermined significance (ASCUS) on Papanicolaou smear of cervix 04/23/2023See scanned records 02-27-23GBS (group B streptococcus) UTI complicating 03/14/2023regestational diabetes mellitus, modified White class B 03/14/2023Failed 1 hr gttSupervision of high-risk 03/12/2023Obesity in 03/12/2023Resolved Hospital ProblemsNo resolved problems to display.Present on Admission:Supervision of high-risk pregnancyObesity in pregnancyGBS (group B streptococcus) UTI complicating pregnancyPregestational diabetes mellitus, modified White class BAtypical squamous cells of undetermined significance (ASCUS) on Papanicolaou smear of cervixUterine leiomyoma, unspecified locationElevated blood pressure reading without diagnosis of hypertensionTubal ligation [id number] weeks gestation of pregnancyPlacenta Accreta ScreeningPrior ? : NoPrior Uterine Surgery?: NoPlacenta low lying/previa in current ? : NoUltrasound suspicion of PASD in current ?: NoScreening outcome:A positive screening outcome indicates a history of prior delivery or prior uterine surgery, AND the presence of either a placenta low lying/previa or ultrasound suspicion of PASD in the current .Negative screening.ASSESSMENT AND PLANAngie Geovanny is a 22 year old at 38w3d by d/u(16) who presents for elevated BP in clinic.IOL- Denies contractions, vaginal bleeding, or LOF- SVE: 2/0/-3- Red Level: irregular ctx- Plan: IOL for elevated BP at term and NRNST in clinic with ryan bulb placement.GHTN r/o PreE- Reports headache for the past few days but has not taken anything, reports it has improved some- Patient had BP of 141/91 followed by 141/93 in clinic- BP on admission: 124/71 and one mild range during workup- Plan: Will order PreE labsBDM- pt reports possible Dx 2 years ago, has never taken medications- Diagnosed this based on failed 1 h GTT of 226- Baseline 24 hour urine 70- Taking ASA 81 mg- Current regimen: 1000 mg PO metformin QHS- FSBG on admission: 99- Will plan for SSI intrapartumGBS- Urine culture on 07/30/23 positive- Will need penicillin intrapartumUterine fibroid- Anterior fundal uterine leiomyoma noted measuring 4.18 x 4.3 x 2.6 cm noted on MFM US on 09/10/23DPS- Counseled on admission, desires- Consents signed on 07/16/23- PSH: none- weight: 298 lbsAntepartum course reviewed- BDM, sero negative, Rnot immune, VZVimmune, HPV not immune, O positive/IAT negative, GBS positive, Pap needs PP- H/H, plt: 12.6 / 38.0, 205 on 09/16/23- [place] RMCHPFetus- Presentation on admission: cephalic- posterior placenta- EFW: 3710 g, 81%tile, AC 97%tile- FHT reactive and reassuring- Normal anatomy scanD/w Dr. Mckinnon.Jann Chopra MD, PhDObstetrics & Gynecology, PGY-1 ssociated attestation - Elvi Bone MD - 10/03/2023 5:04 PM CST I was L&D faculty on 10/03/2023 and agree with H&P below. I discussed the plan of care with the residents. [facility]El[facility] Bone MD34117-2History and physical [id number] Bonee1.2.840.968847.1.13.104.2.7.2.836 767VrkvgShmgikZvbnnljpsST0436-15-77B39:04: 36History and physical noteTXT1.2.840.464212.1.13.104.2.7.2.87509 9|[id number] for patient djwa57410-9Aqycmrc and physical noteLNNARRATIVEFormatted C-CDA narrative textUTMBUTMB - [address] StreetExb[id number] NXEJQWLFNNYQWUTU0231-25-01O78:04:361.2.840 .133521.1.72.3.15|1.2.840.493833.1.13.104. 2.7.2.727879_[id number] [facility] Procedure Notes Date/Time Note Provider Source 2023-10-04 10:29:54 1551-16-06M58:29:54A ssociated Order(s): Central Neuraxial Block Central Neuraxial BlockDate/Time: 10/04/2023 10:30 AMPerformed by: Virginia Guidry MDAuthorized by: Benito Quigley MDPatiinez Location: OBEnd Time: 10/04/2023 10:30 AMReason for Block: Patient request and Labor analgesiaStaff:Anesthesiologist: Benito Quigley MDResident/MERCHANDISE DELIVERER: Virginia Guidry MDPerformed by: resident/CRNAPreanesthetic Checklist: anesthesia consent, IV checked, patient identified, pre-op evaluation, risks and benefits explained and timeout performedProcedure:Type of Neuraxial: EpiduralEpidural Description: 1st attemptSterility Prep cap, drape, gloves, hand hygiene and maskSedation Level no sedationPatient Position: sittingPrep: BetadineMonitoring: heart rate, NIBP and continuous pulse oxLocation: lumbar (1-5)Lumbar: L3-W2Efxpepgw: midlineTechnique: catheterGuidance with: landmark technique}Epidural/Spinal [place] and/or Catheter:Epidural/Spinal Kit: BBraunNeedle Type: TuohyNeedle Gauge: 17 GNeedle Length: 3.5 in (8.89 cm)Needle Insertion Depth: 7.5Catheter Type: multiportCatheter Size: 18 GCatheter at Skin Depth: 12.5Number of Attempts: 1Test Dose: lidocaine 1.5% with epinephrine 1-to-200,000Dose: 5 ccAssessment:Block Outcome: a full evaluation is pendingProcedure Assessment: patient tolerated procedure well with no complications 54107-0Rvknkqsbzcovam procedure swisVY2568-79-00M04:30:50Anesthesi ology procedure noteTXT1.2.840.143492.1.13.104.2.7 .2.732710|[id number] for patient csns97567-9Qgzmdhsc operation noteLNNARRATIVEFormatted C-CDA narrative mqpmKQ-CSOZHAQJVDUWSCJE-ROZSIRVRXD [address] Je[id number] 62IHHCLBXYAICQWCVFKRVHPR9142-90-42 T10:30:501.2.840.800257.1.72.3.15| 1.2.840.206041.1.13.104.2.7.2.7278 79_[id number] AN-ANESTHESIOLOGY [facility] 2023-10-03 16:24:29 3693-44-62F61:24:29P rocedure(s): INSERT CERVICAL DILATORPre-Procedure Diagnose(s): 38 weeks gestation of pregnancyPost-Procedure Diagnose(s): 38 weeks gestation of pregnancy Ian Roca is a 22 year old female 59a4sPawfr insertion:Insertion date and time: 10/03/23 1615Foley catheter inserted through cervix in sterile fashion and inflated with 60 cc sterile saline.Ryan bulb firmly in place inside internal os. Catheter taped to patient leg under traction. Patient tolerated procedure well.Please use the table below for:SVE 2/0/-3CERVIX: Consistency : stiff- 0; Position: posterior- 0, Station: -3- 0Score 0 1 2 3Dilation (cm) 0 cm 1-2 cm 3-4 cm >5 cmEffacement 0 - 30 % 40 - 50 % 60 - 70 % > 80 %Consistency of the cervix Stiff Moderately soft Very softPosition of the cervix Posterior Median AnteriorStation -3 -2 -1 to 0 +1, +2Jacob Nixon Chopra MD PhD 93969-5Miplwebzx fazfFW1699-17-46W04:26:00Procedure noteTXT1.2.840.016943.1.13.104.2.7 .2.985746|[id number] for patient gzhx18879-3Yrvdebrlk noteLNNARRATIVEFormatted C-CDA narrative text[id number] 98QAVHBTIRRYGUMADFWGOZFZ2352-29-56 T16:26:001.2.840.496783.1.72.3.15| 1.2.840.518869.1.13.104.2.7.2.7278 79_[id number] [facility] Notes Date/Time Note Provider Source 2024-02-13 08:20:34 4723-37-04S88:20:34 Patient informed of results and recommendations, verbalized understanding. 48621-2Kdbisjmqb encounter AptaQY8842-84-36M42:21:23Telephone encounter NoteTXT1.2.840.244047.1.13.104.2.7.2.7 03564|[id number] for patient cgfx04854-4AuicBSIKUTZSQZBAtczdstjc C-CDA narrative [id number] Garcia [id number] ULNBUBWMJVZAEOXCZJLN5483-08-82Z11:21:2 31.2.840.523207.1.72.3.15|1.2.840.1143 50.1.13.104.2.7.2.727879_[id number] Arlin Newberry LVN [facility] 2024-02-13 06:40:59 4924-66-15C12:40:59 Please call patient and let her know PAP was negative but needs to repeat in 1 year due to prior ASCUS. 15558-3Xsduhucty encounter LbvpAJ1222-00-64R45:41:40Telephone encounter NoteTXT1.2.840.064289.1.13.104.2.7.2.7 77062|[id number] for patient dkyq21178-8DnceCFYHXAJGZICGlolulhfh C-CDA narrative text[address] StreetSlfaH[id number] OJKANGFHXOBMYJCQQUME3547-58-88P55:41:4 01.2.840.190813.1.72.3.15|1.2.840.1143 50.1.13.104.2.7.2.727879_[id number] [facility] 2023-10-05 17:42:42 1111-59-93F90:42:42 Problem: Falls, Risk ofGoal: Absence of falls10/05/20231741 by Kaya Callejas RNOutcome: Adequate for bkqngxbar23/31/2023 141 by Kaya Callejas RNOutcome: Progressing as expectedProblem: Glucose controlGoal: Glucose level within specified prsvywvvsq18/31/20231741 by Kaya Callejas RNOutcome: Adequate for icsmccjrh58/31/2023 141 by Kaya Callejas RNOutcome: Progressing as expectedProblem: PainGoal: Control of pain at or below patient's documented comfort goal10/05/20231741 by Kaya Callejas RNOutcome: Adequate for gzymvkizi41/31/2023 1417 by Kaya Callejas RNOutcome: Progressing as expectedGoal: Reduction in pain omkcskkhr87/31/20231741 by Kaya Callejas RNOutcome: Adequate for cbnzaatmw59/31/2023 1417 by Kaya Callejas RNOutcome: Progressing as expectedProblem: Bleeding, Risk ofGoal: Absence of impaired coagulation signs and yazxpscj85/31/2023 174 by Kaya Callejas RNOutcome: Adequate for ktvimcazm48/31/2023 1417 by Kaya Callejas RNOutcome: Progressing as expectedGoal: Absence of active ywgowxxi27/31/2023 174 by Kaya Callejas RNOutcome: Adequate for hgonbrtxf85/31/2023 1417 by Kaya Callejas RNOutcome: Progressing as expected 10094-2Wtkp of care fbdaVE3318-49-58N77:42:45Plan of care noteTXT1.2.840.975871.1.13.104.2.7.2.7 46118|[id number] for patient tcey97343-0YtjeKXOLYKXPDKWCxjuhcnrw C-CDA narrative text[address] Lz[id number] UGQIZZUSCQAMNUJPHQMX3676-85-57V47:42:4 51.2.840.860354.1.72.3.15|1.2.840.1143 50.1.13.104.2.7.2.727879_[id number] [facility] 2023-10-05 14:17:31 2131-43-83K00:17:31 Problem: Falls, Risk ofGoal: Absence of fallsOutcome: Progressing as expectedProblem: Glucose controlGoal: Glucose level within specified parametersOutcome: Progressing as expectedProblem: PainGoal: Control of pain at or below patient's documented comfort goalOutcome: Progressing as expectedGoal: Reduction in pain sensationOutcome: Progressing as expectedProblem: Bleeding, Risk ofGoal: Absence of impaired coagulation signs and symptomsOutcome: Progressing as expectedGoal: Absence of active bleedingOutcome: Progressing as expected 11759-3Sfmo of care walnTN8231-14-33X97:17:33Plan of care noteTXT1.2.840.164088.1.13.104.2.7.2.7 94198|[id number] for patient akac04217-8IscoUUMDUXQAHXRXaschhkkc C-CDA narrative textUT[address] BtjvBlduwolwhIkrkzclhdESYO3017382759CH CIBLJOCHEDARIHTBIYUN5279-72-06M78:17:3 31.2.840.145446.1.72.3.15|1.2.840.1143 50.1.13.104.2.7.2.727879_[id number] [facility] 2023-10-05 11:48:42 4271-25-68L05:48:42 Images from the original note were not included.This note was copied from a baby's chart. Assessment (most recent) Assessment - 10/05/23 1115General InformationVisit InitialPercent of weight loss- 3.46Mom's age (years) 22 yearsInterpreter Used Yes - Qualified Pace Analyst UsedGestational age 38.4 weeksGravida 1Parity 1Living Children 1Feeding plan FormulaFinancial Class WIC;Medicaid WIC at [place]/ [facility] AngletonDelivery method SVDRisk factors Obesity;Hypertension GBS+Literature ResourcesResources Understanding Mother and Baby Care; channel How To Dry Up Your BreastmilkEducation Engorgement signs and treatment;How to suppress milk supply;LactogenesisHandouts given SpanishRecommended Feeding PlanRecommended feeding plan -- feeding plan is formulaOTHER$ SERVICES Gordon WILSON, RNC-OB, IBCLC 15631-7Yczxyynufc KuauVL4580-38-35W88:49:01Obstetrics NoteTXT1.2.840.981204.1.13.104.2.7.2.7 47677|[id number] for patient fmke79227-8YfopFBLJAXWMQASBxganqlko C-CDA narrative ljpe962509148Ysqcp M Jj RNUT[address] [id number] WVIVBQUAWNJXXDPLVDYN6260-08-17B42:49:0 11.2.840.287686.1.72.3.15|1.2.840.1143 50.1.13.104.2.7.2.727879_[id number] Abena Gardner RN [facility] 2023-10-05 06:15:52 9552-13-33Q08:15:52 Cont POC 29356-1Yjzj of care gczyMX1106-66-37B19:15:57Plan of care noteTXT1.2.840.713527.1.13.104.2.7.2.7 60615|[id number] for patient jsuv50180-3JmurOWJFIFLTKWLQojxtosfr C-CDA narrative ciji572183594Ppixcx M Oliver RN[address] [id number] FYPLZFBTRRAPLCMCJJAV6411-54-48R13:15:5 71.2.840.099100.1.72.3.15|1.2.840.1143 50.1.13.104.2.7.2.727879_[id number] Beverley Hernandez RN [facility] 2023-10-04 21:15:56 5889-87-59H48:15:56 Patient: Ian JoycequivelProcedure SummaryDate: 10/04/23 Room / Location:Anesthesia Start: 1007 Anesthesia Stop: 1929Procedure: CENTRAL NEURAXIAL BLOCK Diagnosis:Scheduled Providers: Responsible Provider: Benito Quigley MDAnesthesia Type: Epidural ASA Status: 3Anesthesia Type: EpiduralLast vitalsBP 129/72 (10/04/232029)Temp 36.6 ?C (97.9 ?F) (10/04/232029)Pulse 75 (10/04/232029)Resp 17 (10/04/232029)SpO2 98 % (10/04/232029)There were no known notable events for this encounter.Anesthesia Post EvaluationPatient location during evaluation: PACUPatient participation: complete - patient participatedLevel of consciousness: awake and alertPain score: 0Pain management: satisfactory to patientMultimodal analgesia pain management approachAirway patency: patentTwo or more strategies used to mitigate risk of obstructive sleep apneaCardiovascular status: acceptable and blood pressure returned to baselineRespiratory status: acceptableHydration status: acceptable 34449-1Dsxhfrpgwgxpxx Postoperative evaluation and management somoUQ3296-52-40V95:16:08Anesthesiolog y Postoperative evaluation and management noteTXT1.2.840.633551.1.13.104.2.7.2.7 39946|[id number] for patient vrra45138-7Nsietpsg operation noteLNNARRATIVEFormatted C-CDA narrative textAN-ANESTHESIOLOGY ANESTHESIOLOGISTAN-ANESTHESIOLOGY ANESTHESIOLOGIST[address] [id number] AHJLKILYWCPOONPBKFHZ1071-48-43Q31:16:0 81.2.840.602569.1.72.3.15|1.2.840.1143 50.1.13.104.2.7.2.727879_[id number] AN-ANESTHESIOLOGY ANESTHESIOLOGIST [facility] 2023-10-04 18:51:39 7160-75-32L08:51:39 Name/ MRN / Age / Gender:Ian Roca, [id number] year old femaleBMI:Estimated body mass index is 52.8 kg/m? as calculated from the following:Height as of this encounter: 1.6 m (5' 2.99").Weight as of this encounter: 135.2 kg (298 lb).Allergies:Patient has no known allergies.Last Vitals:BP Readings from Last 1 Encounters:10/04/23 131/75Pulse Readings from Last 1 Encounters:10/04/23 88SpO2 Readings from Last 1 Encounters:10/04/23 98%Date of Surgery:Surgeon: * Surgery not found *Procedure: CENTRAL NEURAXIAL BLOCKOR Location: [place] [facility] OUT OF OR - OR LOCATIONAnesthesia Preop Eval (physical exam)Anesthesia Preop: Chart Review and Bvyq-ml-PencKFF Status VerifiedClear Liquids: > 2 HoursSolid Food/Non-Clear Liquids: > 8 HoursPONV Risk Factors: femaleAnesthesia HistoryAnesthesia History Negative(-) Hx of anesthetic complicationsPrevious Anesthetics/AirwaysCardiovascularNegat leonid Cardiac ROSComments:BP Readings from Last 3 Encounters:10/03/23 : 132/ : (!) 141/ : 131/83METS: 4(-) Patient reports no hx of cardiac problemsPulmonaryNegative Pulmonary ROS(-) Asthma(-) Tobacco useNeuro/MusculoskeletalNegative Neuro/Musculosketal ROS(-) CVA(-) Scoliosis(-) Spinal Cord injury(-) Positioning limitations(+) Obesity and super morbid obesityGI/HepaticNegative GI/Hepatic ROSComments:ALBUMIN (g/dL)Date Value04/09/2023 3.7 TOTAL BILI (mg/dL)Date Value04/09/2023 0.3 ALTv (U/L)Date Value10/03/2023 19 AST(SGOT) (U/L)Date Value10/03/2023 21 ALK PHOS (U/L)Date Value04/09/2023 53 (-) Liver diseaseHematologyNegative Hematology ROSComments:WBC (10*3/?L)Date Value10/03/2023 9.43 HGB (g/dL)Date Value10/03/2023 12.5 PLT (10*3/?L)Date Value10/03/2023 198 No results found for: "PTINR"No results found for: "APTTMNNM"No results found for: "APTTPAT"RenalNegative Renal ROSComments:CREATININE (mg/dL)Date Value10/03/2023 0.54 K (mmol/L)Date Value04/09/2023 4.0 NA (mmol/L)Date Value04/09/2023 139 (-) Patient reports no kidney problemsSkinNegative Skin ROS(+) Current IV access and 18gEndo/OtherNegative Endo/Other ROSComments:No results found for: "IKKWWQE3T"HGB Z2RBtcp Value Ref Range Qvosje7903/17/2023 6.0 (H) 4.0 - 5.7 % Final (-) Diabetes MellitusOther(-) Tobacco useOB/GYNComments: Ian Roca is a 22 year old at 38w3d by d/u(16) who presents for elevated BP in clinic.IOL- Denies contractions, vaginal bleeding, or LOF- SVE: 2/0/-3- Red Level: irregular ctx- Plan: IOL for elevated BP at term and NRNST in clinic with ryan bulb placement.GHTN r/o PreE- Reports headache for the past few days but has not taken anything, reports it has improved some- Patient had BP of 141/91 followed by 141/93 in clinic- BP on admission: 124/71 and one mild range during workup- Plan: Will order PreE labsBDM- pt reports possible Dx 2 years ago, has never taken medications- Diagnosed this based on failed 1 h GTT of 226- Baseline 24 hour urine 70- Taking ASA 81 mg- Current regimen: 1000 mg PO metformin QHS- FSBG on admission: 99- Will plan for SSI intrapartumGBS- Urine culture on 07/30/23 positive- Will need penicillin intrapartumUterine fibroid- Anterior fundal uterine leiomyoma noted measuring 4.18 x 4.3 x 2.6 cm noted on MFM US on 09/10/23DPS- Counseled on admission, desires- Consents signed on 07/16/23- PSH: none- weight: 298 lbsAntepartum course reviewed- BDM, sero negative, Rnot immune, VZVimmune, HPV not immune, O positive/IAT negative, GBS positive, Pap needs PP- H/H, plt: 12.6 / 38.0, 205 [facility]23[facility] Presentation on admission: cephalic- posterior placenta- EFW: 3710 g, 81%tile, AC 97%tile- FHT reactive and reassuring- Normal anatomy scanP: 1(+) Gestational hypertensionPediatricPediatric N/ANeonatalNeonatal N/APreoperative Medication InstructionsContinue taking all prescribed medications except:KIARA inhibitors, ARBs, diuretics, all oral diabetes medicationsAnticoagulant Therapy: Defer to surgeonsInsulin: Take 1/2 dose the night prior to surgery. Hold on DOS.Phentermine: Alert [facility] anesthesiologistSGLT2 Inhibitors: "gliflozins" to be held for 3 days prior to elective surgeriesGLP1 Agonosit: stop 7 days prior to surgeryMAC Cases: Continue taking KIARA inhibitors and ARBsASA ClassificationASA: 3Current Medications:No outpatient medications have been marked as taking for the 10/03/23 encounter (Hospital Encounter).Previous Surgeries:Past Surgical History:Procedure Laterality DateINCISION AND DRAINAGE OF PERITONSILLAR ABCESS(SHX) nesthesia Physical ExamGeneralno apparent distress and alert and oriented x 3Neuro/PsychneurologicalDentalno notable dental hxAbdominalGI exam normal(+) obesity and gravidAirwayMallampati score:IITM distance:< 5 cmNECK: thickNeck ROM: fullMouth opening:normalExtremityNormal extremityPulmonarypulmonary exam normal OtherCardiovascularcardiovascular exam normalAnesthesia PlanASA Status: 3Plan discussed during pre-op evaluation: General, MAC, Epidural and SpinalAnesthetic plan on DOS: EpiduralAnesthesia plan discussed with: patient or territory sales representative and interpreterPost-Operative Analgesia: routine analgesia & antiemeticsRecovery Plan: LDRAdditional comments: 48179-2Qldxadzrmmnfpn Preoperative evaluation and management lqnxXR6618-35-98Z46:55:47Anesthesiolog y Preoperative evaluation and management noteTXT1.2.840.463056.1.13.104.2.7.2.7 38029|[id number] for patient aagi95819-2Bpmoibif operation noteLNNARRATIVEFormatted C-CDA narrative textUT[address] Qn[id number] QLMNXJPPVEANYZBPSUBR7216-81-49D38:55:4 71.2.840.804195.1.72.3.15|1.2.840.1143 50.1.13.104.2.7.2.727879_[id number] [facility] 2023-10-04 17:04:05 3076-71-74T60:04:05 DELIVERY BY SPONTANEOUS VAGINAL DELIVERYDelivery Date: 10/04/2023 Delivery Time: 4:24 PMDelivery SummaryThe patient was admitted to the Labor & Delivery unit for IOL at 38 weeks due to GHTN.Delivery Physician: Jann Chopra MD PhDTeaching Resident: July Dominguez MDOB Faculty: Omar Man MDIntrapartum Anesthesia/Analgesia: EpiduralMode of Delivery: Delivery of pires fetus with cephalic presentationFetusSpontaneous vaginal delivery of head with cephalic position, occipital anterior. As the head crowned and distended the perineum, no episiotomy was performed. A blue towel was used to protect the perineum as the head crowned and delivered. The other hand was used to exert pressure on the occiput to control the delivery of the head. The perineum was pushed with a towel-draped hand as the head and mouth was delivered over the perineum. The head was allowed to rotate externally to achieve natural body posture. Examination of neck revealed no umbilical cord. The shoulder was delivered by gentle downward traction applied to head and downward traction for the delivery of anterior shoulder. This was followed by upward traction with delivery of posterior shoulder and body. After the delivery of , bulb suction was performed from ororpharynx and nostril with removal of clear amniotic fluid.A normal, female was delivered.The umbilical cord was double clamped, cut and the was handed off the field to the circulating nursePlacentaPlacenta was delivered spontaneously while the abdominal hand lifted the uterus cephalad and other hand keeping the umbilical cord slightly taut.LacerationLaceration Repair: Bilateral vaginal sidewall lacerations repaired with 2-0 chromic suture in running locking fashion. Right labial abrasion repaired with 3-0 chromic in running locking fashion.Fourth StageFourth stage of labor was managed by uterine massage with abdominal hand and infusion 30 units of pitocin mixed with intravenous fluid at 600 cc/hr.EBL: 300Complications: noneWeight: 3470 g1 Minute 5 Minute 10 MinuteApgar Totals: 7 8 ssociated attestation - Omar Man MD - 10/05/2023 7:28 AM CST I was present for the delivery on 10/04/[address] Chopra's note for additional details.Omar Man MDOB Smnkfeu45335-5Hodqi and delivery summary cqwbVR8763366Yujvrpn, Brett1.2.840.975983.1.13.104.2.7.2.836 801JxrcjdcJaflsBS8160-33-66F32:28:50La bor and delivery summary noteTXT1.2.840.276130.1.13.104.2.7.2.7 42686|[id number] for patient dagf61703-9GpgnQXDBMYNIDYSXddajyzcj C-CDA narrative textUTMBUTMB - [address] StreetZndrKherbtapsJanuywbqzMXLH2194573148HR HSNRQUUSEJWSQGQYNXWR0109-98-72R49:28:5 01.2.840.185728.1.72.3.15|1.2.840.1143 50.1.13.104.2.7.2.727879_[id number] [facility] 2023-10-04 07:56:33 5110-93-84Y28:56:33 Problem: Intrapartum process (including labor pain)Goal: Absence of or reduction of complications of laborOutcome: Progressing as expectedGoal: Able to cope with painOutcome: Progressing as expectedGoal: Adequate to move to next level of careOutcome: Progressing as expectedGoal: Reduction in pain sensationOutcome: Progressing as expectedProblem: Falls, Risk ofGoal: Absence of fallsOutcome: Progressing as expectedProblem: Glucose controlGoal: Glucose level within specified parametersOutcome: Progressing as expected 20713-9Opvy of care ozifXJ4982-91-25Z08:56:38Plan of care noteTXT1.2.840.526819.1.13.104.2.7.2.7 43234|[id number] for patient gryq69015-5UmlsSLCIGXNPMLVMhdctpdpz C-CDA narrative text[address] Dh[id number] UETFXCKDIPXFPCPQTSAY7694-87-70A60:56:3 81.2.840.280607.1.72.3.15|1.2.840.1143 50.1.13.104.2.7.2.727879_[id number] [facility] 2023-10-04 07:23:31 6254-11-26P30:23:31 Intrapartum Progress Note10/04/2023 7:23 AMSubjective: Patient has no complaintsObjective:Vitals last 24 hours:Temp: [35.9 ?C (96.6 ?F)-37.1 ?C (98.7 ?F)] 36.8 ?C (98.3 ?F)Pulse: [62-110] 71Resp: [16-20] 18BP: (118-157)/(54-98) 123/58Intake/Output :No intake/output data recorded.I/O last 3 completed shifts:In: 1898.5 [I.V.:5.4]Out: - AssessmentActive movement: YesMode: EFMBaseline FHR (bpm): 120Variability: ModeratePattern: AccelerationsDecel Frequency: NoneFHR Category: IUterine Activity:Mode: TocoContractions (number / 10 minute): 2Contraction duration (seconds): 80Contraction quality: MildResting tone: SoftMembrane StatusMembrane status: ArtificialCervical Exam5 / 50 % / -3Assessment/Plan:Ian Roca is a 22 year old at 68v9hGE Assessment: IOL, GHTN, BDM, GBS, DPSOB Plan: s/p FB, Pit@0345, SSI, PCNAdditional Comments/Detail: AROM with large amount of clear fluid. Internals placed.Ripening Agent: OxytocinIntrapartum Plan: [place] [address]-2Wbobnnid bngtAJ7313-06-73T64:23:36Progress noteTXT1.2.840.295172.1.13.104.2.7.2.7 76613|[id number] for patient iurv02220-3XtirOTPBWALDRKTQctttkqvc C-CDA narrative textOG-OBSTETRICS & GYNECOLOGYOG-OBSTETRICS & GYNECOLOGYUTSAN JUAN [facility] - [address] Vx[id number] VCVUPWDBKBIGQTYIBBGP2394-43-30X57:23:3 61.2.840.552740.1.72.3.15|1.2.840.1143 50.1.13.104.2.7.2.727879_[id number] OG-OBSTETRICS & GYNECOLOGY [facility] 2023-10-03 21:25:46 3347-77-23O39:25:46 Name/ MRN / Age / Gender:Ian Roca, [id number] year old femaleBMI:Estimated body mass index is 52.8 kg/m? 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 Location: * No surgery found *Anesthesia Preop Eval (physical exam)Anesthesia Preop: Chart Review and Zfgx-jk-JunhLKXS Risk Factors: femaleAnesthesia HistoryAnesthesia History Negative(-) Hx of anesthetic complicationsPrevious Anesthetics/AirwaysCardiovascularNegat leonid Cardiac ROSComments:BP Readings from Last 3 Encounters:10/03/23 : 132/ : (!) 141/ : 131/83(-) Patient reports no hx of cardiac problemsPulmonaryNegative Pulmonary ROS(-) Asthma(-) Tobacco useNeuro/MusculoskeletalNegative Neuro/Musculosketal ROS(-) CVA(-) Scoliosis(-) Spinal Cord injury(-) Positioning limitations(+) Obesity and super morbid obesityGI/HepaticNegative GI/Hepatic ROSComments:ALBUMIN (g/dL)Date Value04/09/2023 3.7 TOTAL BILI (mg/dL)Date Value04/09/2023 0.3 ALTv (U/L)Date Value10/03/2023 19 AST(SGOT) (U/L)Date Value10/03/2023 21 ALK PHOS (U/L)Date Value04/09/2023 53 (-) Liver diseaseHematologyNegative Hematology ROSComments:WBC (10*3/?L)Date Value10/03/2023 9.43 HGB (g/dL)Date Value10/03/2023 12.5 PLT (10*3/?L)Date Value10/03/2023 198 No results found for: "PTINR"No results found for: "APTTMNNM"No results found for: "APTTPAT"RenalNegative Renal ROSComments:CREATININE (mg/dL)Date Value10/03/2023 0.54 K (mmol/L)Date Value04/09/2023 4.0 NA (mmol/L)Date Value04/09/2023 139 (-) Patient reports no kidney problemsSkinNegative Skin ROS(+) Current IV accessEndo/OtherNegative Endo/Other ROSComments:No results found for: "WPDJMVA9A"HGB P9VUlrw Value Ref Range Vnlsnd6303/17/2023 6.0 (H) 4.0 - 5.7 % Final (-) Diabetes MellitusOther(-) Tobacco useOB/GYNComments: Ian Roca is a 22 year old at 38w3d by d/u(16) who presents for elevated BP in clinic.IOL- Denies contractions, vaginal bleeding, or LOF- SVE: 2/0/-3- Red Level: irregular ctx- Plan: IOL for elevated BP at term and NRNST in clinic with ryan bulb placement.GHTN r/o PreE- Reports headache for the past few days but has not taken anything, reports it has improved some- Patient had BP of 141/91 followed by 141/93 in clinic- BP on admission: 124/71 and one mild range during workup- Plan: Will order PreE labsBDM- pt reports possible Dx 2 years ago, has never taken medications- Diagnosed this based on failed 1 h GTT of 226- Baseline 24 hour urine 70- Taking ASA 81 mg- Current regimen: 1000 mg PO metformin QHS- FSBG on admission: 99- Will plan for SSI intrapartumGBS- Urine culture on 07/30/23 positive- Will need penicillin intrapartumUterine fibroid- Anterior fundal uterine leiomyoma noted measuring 4.18 x 4.3 x 2.6 cm noted on MFM US on 09/10/23DPS- Counseled on admission, desires- Consents signed on 07/16/23- PSH: none- weight: 298 lbsAntepartum course reviewed- BDM, sero negative, Rnot immune, VZVimmune, HPV not immune, O positive/IAT negative, GBS positive, Pap needs PP- H/H, plt: 12.6 / 38.0, 205 on 09/16/23- [place] RMCHPFetus- Presentation on admission: cephalic- posterior placenta- EFW: 3710 g, 81%tile, AC 97%tile- FHT reactive and reassuring- Normal anatomy scan(+) Gestational hypertensionPediatricPediatric N/ANeonatalNeonatal N/APreoperative Medication InstructionsContinue taking all prescribed medications except:KIARA inhibitors, ARBs, diuretics, all oral diabetes medicationsAnticoagulant Therapy: Defer to surgeonsInsulin: Take 1/2 dose the night prior to surgery. Hold on DOS.Phentermine: Alert [facility] anesthesiologistSGLT2 Inhibitors: "gliflozins" to be held for 3 days prior to elective surgeriesGLP1 Agonosit: stop 7 days prior to surgeryMAC Cases: Continue taking KIARA inhibitors and ARBsASA ClassificationASA: 3Current Medications:No outpatient medications have been marked as taking for the 10/03/23 encounter (Hospital Encounter).Previous Surgeries:Past Surgical History:Procedure Laterality DateINCISION AND DRAINAGE OF PERITONSILLAR ABCESS(SHX) nesthesia Physical ExamGeneralno apparent distress and alert and oriented x 3Neuro/PsychneurologicalDentalno notable dental hxAbdominalGI exam normal(+) obesity and gravidAirwayMallampati score:IITM distance:< 5 cmNECK: thickNeck ROM: fullMouth opening:normalExtremityNormal extremityPulmonarypulmonary exam normal OtherCardiovascularcardiovascular exam normalAnesthesia PlanASA Status: 3Plan discussed during pre-op evaluation: General, MAC, Epidural and SpinalAnesthetic plan on DOS: EpiduralAnesthesia plan discussed with: patient or territory sales representative and interpreterPost-Operative Analgesia: routine analgesia & antiemeticsRecovery Plan: LDRAdditional comments: 33875-9Hhiqjztnobnzpj Preoperative evaluation and management xhgzLQ3927-21-46N83:27:37Anesthesiolog y Preoperative evaluation and management noteTXT1.2.840.870035.1.13.104.2.7.2.7 73407|[id number] for patient chwx56753-9Yzuonjcb operation noteLNNARRATIVEFormatted C-CDA narrative gbjvQG-AHFFDKRUMJTAYYAV-ZXUTXEBTQYRTXV [address]Qh[id number] QTREQIGIENJPZGKBTUBB6283-96-15G08:27:3 71.2.840.684761.1.72.3.15|1.2.840.1143 50.1.13.104.2.7.2.727879_[id number] AN-ANESTHESIOLOGY [facility] 2023-10-03 19:39:19 4938-00-81C60:39:19 Problem: Intrapartum process (including labor pain)Goal: Absence of or reduction of complications of laborOutcome: Progressing as expectedGoal: Able to cope with painOutcome: Progressing as expectedGoal: Adequate to move to next level of careOutcome: Progressing as expectedGoal: Reduction in pain sensationOutcome: Progressing as expected 46650-1Lxcg of care vaqaSO5080-99-12L98:39:24Plan of care noteTXT1.2.840.547054.1.13.104.2.7.2.7 31985|[id number] for patient migq94544-7OqpuXZSJTIXNFFVSwmniyxze C-CDA narrative [id number] [place] BEATRICE[id number] VAIAZQUOCYOUFCVERDWU1589-56-40J48:39:2 41.2.840.777707.1.72.3.15|1.2.840.1143 50.1.13.104.2.7.2.727879_[id number] [facility] 2023-10-03 18:47:55 1962-34-76F19:47:55 Problem: Intrapartum process (including labor pain)Goal: Absence of or reduction of complications of laborOutcome: Progressing as expectedGoal: Able to cope with painOutcome: Progressing as expectedGoal: Adequate to move to next level of careOutcome: Progressing as expectedGoal: Reduction in pain sensationOutcome: Progressing as expected 82908-6Qpsj of care uoyzSU7239-43-93Q88:47:58Plan of care noteTXT1.2.840.810023.1.13.104.2.7.2.7 46637|[id number] for patient vfnz18356-9BzthWQWAGYBDLNMQycwtijol C-CDA narrative [id number] R Danek RN[id number] ZEFCGUAZUBHFJHLXRYMF7430-38-33V03:47:5 81.2.840.581059.1.72.3.15|1.2.840.1143 50.1.13.104.2.7.2.727879_[id number] Zully Christopher RN [facility] 2023-05-28 10:32:37 4552-11-61M80:32:37 Patient informed no blood work is done for gender testing here, verbalized understanding. 59087-5Ylxnlzuhn encounter ZoyyQS8781-38-52F33:34:11Telephone encounter NoteTXT1.2.840.762175.1.13.104.2.7.2.7 09107|[id number] for patient [id number] Rohith [id number] NOYLPKGTYMFKFMQTCIOM2442-99-73T63:34:1 11.2.840.588850.1.72.3.15|1.2.840.1143 50.1.13.104.2.7.2.727879_[id number] Arlin Newberry [facility] 2023-05-28 09:42:36 4136-65-20N68:42:36 Patient is requesting to know if she can get blood work to determine the sex of the baby,please call patient back in regards to this encounter. 35879-4Moxugkjfw encounter KxgnNW5366-29-05T58:43:34Telephone encounter NoteTXT1.2.840.708286.1.13.104.2.7.2.7 30581|[id number] for patient qmbl92691-4AacsAA527797101Raskppk [id number] MYVUGHOVFYZLKJJAIPXN5009-67-94B03:43:3 41.2.840.505083.1.72.3.15|1.2.840.1143 50.1.13.104.2.7.2.727879_[id number] Nohemi Bender [facility] 2023-05-23 16:10:19 8283-07-73S58:10:19 Noted. 12571-6Oeoamwaod encounter SkdnHJ1973-50-43S53:10:24Telephone encounter NoteTXT1.2.840.266835.1.13.104.2.7.2.7 72867|[id number] for patient sfwl52568-6YinqOW818265795Cphyqvpl Rohith [id number] RQEIAUADSNQCZCZZDYIY2301-47-28L66:10:2 41.2.840.154388.1.72.3.15|1.2.840.1143 50.1.13.104.2.7.2.727879_[id number] Arlin Newberry LVN [facility] 2023-05-23 16:09:11 4513-58-97I24:09:11 Spoke with patient and she is aware of appointment on 05/28/23 at 7:45 am. 26721-0Xzzzygdsx encounter KefsFA9603-57-56K48:09:43Telephone encounter NoteTXT1.2.840.126026.1.13.104.2.7.2.7 13021|[id number] for patient frtb58719-0NztmDS23807235Vdhgwrq [id number] KSWFLHDGVUOEQPENLDNO9440-35-12U85:09:4 31.2.840.518869.1.72.3.15|1.2.840.1143 50.1.13.104.2.7.2.727879_[id number] Marcela Cheema [facility] 2023-05-23 15:43:01 7950-60-16R36:43:01 If she desires to be seen sooner, she can be seen on the day she is scheduled for her usg on the with Sally, she has less patients than on ms on that day. URI Avendnao 05/23/2023 3:44 PM 84353-5Lzrqlmgjd encounter KzquMK7804-50-16X32:44:57Telephone encounter NoteTXT1.2.840.226670.1.13.104.2.7.2.7 11977|[id number] for patient ohjs99345-5KrwgWPRGUWFDCW[id number] YYRPXTMVJAUMRVZYOATD5121-16-69O79:44:5 71.2.840.120492.1.72.3.15|1.2.840.1143 50.1.13.104.2.7.2.727879_[id number] [facility] 2023-05-23 15:14:08 5804-04-40J90:14:08 Patient is requesting to be seen before 06/05/23 for pnv due to moving and unable to come to her high risk appt, please advice if patient can be seen by low risk,thank you. 19267-8Tlhlvzior encounter QxhuUN7882-92-16K92:15:26Telephone encounter NoteTXT1.2.840.916715.1.13.104.2.7.2.7 98531|[id number] for patient [id number] Gonzalez[address] JsycXesubelakBfrtbvpavCXPO6445786765LK NZCJEXSYBZRTBZUELQPD2379-48-75Q60:15:2 61.2.840.169866.1.72.3.15|1.2.840.1143 50.1.13.104.2.7.2.727879_[id number] Nohemi Bender [facility]
[2024-03-04] MEDS ORDERED: KETOROLAC 30 MG/ML INJ ONE (19:47)
[2024-03-04] MEDS ORDERED: ONDANSETRON 4 MG (ODT) TAB ONE (19:47)
[2024-03-04 20:50] LABS: SARS-CoV-2 Antigen CONTROL BLUE LINE VIS/BG OK; SARS-CoV-2 Antigen Rapid Res Negative (Negative)
--- NOTE | 2024-03-04 21:33 | EDPHYS ---
Physician Documentation [facility] Name: Ana Barroso Age: 23 yrs Sex: Female : 2000 Arrival Date: 03/04/2024 Time: 18:51 Bed DX3 Private MD: ED Physician Bernard Wilson HPI: 03/04 23:36 This 23 yrs old Female presents to ER via Ambulatory with complaints of Flu sb4 Symptoms. 03/05 00:21 nausea, vomiting, diarrhea, headache starting today. daughter has similar symptoms. no sb4 reported sore throat, fever, chills. has not been able to hold down any OTC medications. 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 - Infectious Disease History:: Denies. - Social history:: Smoking status: Patient denies any tobacco usage or history of. ROS: 03/05 00:21 Constitutional: Negative for fever, chills, and weight loss, sb4 Abdomen/GI: Positive for nausea, vomiting, and diarrhea, Neuro: Positive for headache, All other systems are negative, Exam: 00:21 Constitutional: This is a well developed, well nourished patient who is awake, alert, sb4 and in no acute distress. Head/Face: Normocephalic, atraumatic. Eyes: Extra-ocular motions intact. Periorbital areas with no swelling, redness, or edema. ENT: Mucous membranes moist. Cardiovascular: Regular rate and rhythm with a normal S1 and S2. Respiratory: Lungs have equal breath sounds bilaterally, clear to auscultation and percussion. No rales, rhonchi or wheezes noted. No increased work of breathing, no retractions or nasal flaring. Abdomen/GI: Soft, non-tender, no distension. Skin: Warm, dry with normal turgor. Normal color with no rashes, no lesions, and no evidence of cellulitis. Vital Signs: 03/04 19:40 BP 138 / 99; Pulse 88; Resp 18; Temp 98.1; Pulse Ox 100% ; Weight 127.01 kg; Height 5 cm10 ft. 3 in. ; Pain 10/10; 22:02 BP 131 / 77; Pulse 81; Resp 18; Temp 98.3; Pulse Ox 100% ; kb3 19:40 Body Mass Index 49.60 (127.01 kg, 160.02 cm) cm10 19:40 Pain Scale: Adult cm10 MDM: 19:48 Patient medically screened. sb4 03/05 00:21 Data reviewed: vital signs, nurses notes, lab test result(s), and as a result, I will sb4 discharge patient. Counseling: I had a detailed discussion with the patient and/or guardian regarding the historical points, exam findings, and any diagnostic results supporting the discharge/admit diagnosis, lab results, to return to the emergency department if symptoms worsen or persist or if there are any questions or concerns that arise at home. 03/04 19:41 Order name: Strep; Complete Time: 20:52 sb4 03/04 19:41 Order name: SARS RAPID; Complete Time: 20:52 sb4 03/04 19:41 Order name: Flu; Complete Time: 20:52 sb4 03/04 19:41 Order name: Test, Urine; Complete Time: 20:41 sb4 03/04 20:53 Order name: Throat Culture EDMS Administered Medications: 03/04 20:04 Drug: Ondansetron Oral Disintegrating Tablet Oral Disintegrating Tablet 4 mg PO once cm10 Route: PO; 22:21 Follow up: Response: No adverse reaction; Nausea is decreased kb3 20:04 Drug: Ketorolac IM 30 mg IM once Route: IM; Site: left gluteus; cm10 22:21 Follow up: Response: No adverse reaction; Pain is decreased kb3 Disposition Summary: 03/04/24 21:33 Discharge Ordered Notes: Location: Home sb4 Problem: new sb4 Symptoms: have improved sb4 Condition: Stable sb4 Diagnosis - Viral infection, unspecified sb4 Followup: sb4 - With: Emergency Department - When: As needed - Reason: Trouble breathing, Worsening of condition Discharge Instructions: - Discharge Summary Sheet sb4 - Viral Illness, Adult sb4 Forms: - Patient Portal Instructions sb4 - Leadership Thank You Letter sb4 Prescriptions: - ondansetron 8 mg Oral Tablet,disintegrating - take 1 tablet ORAL route every 8 hours; 20 tablet; Refills: 0, Product sb4 Selection Permitted Signatures: Dispatcher [employer] EDMS Rox Roblero PA-C PA-C sb4 Marilia Rollins RN RN cm10 Shanice Martino RN kb3 Corrections: (The following items were deleted from the chart) 19:41 19:41 Group A Streptococcus Rapid Sc+BA.LAB.BRZ ordered. EDMS EDMS 19:41 19:41 SARS-COV-2 Antigen Rapid+I.LAB.BRZ ordered. EDMS EDMS 19:41 19:41 Influenza Screen (A \T\ B)+BA.LAB.BRZ ordered. EDMS EDMS 19:41 19:41 Test, Urine+UC.LAB.BRZ ordered. EDMS EDMS
--- NOTE | 2024-03-04 21:33 | ER ---
Nurse's Notes [facility] Name: Ana Barroso Age: 23 yrs Sex: Female : 2000 Arrival Date: 03/04/2024 Time: 18:51 Bed DX3 Private MD: Diagnosis: Viral infection, unspecified Presentation: 03/04 19:40 Chief complaint: Patient states: Intermittent abdominal pain, vomiting, diarrhea and cm10 headache onset today. Coronavirus screen: Client denies travel out of the [place] in the last 14 days. Ebola Screen: Patient denies travel to an Ebola-affected area in the 21 days before illness onset. No symptoms or risks identified at this time. Initial Sepsis Screen: Does the patient meet any 2 criteria? No. Patient's initial sepsis screen is negative. Does the patient have a suspected source of infection? No. Patient's initial sepsis screen is negative. Risk Assessment: Do you want to hurt yourself or someone else? Patient reports no desire to harm self or others. Onset of symptoms was March 04, 2024. 19:40 Method Of Arrival: Ambulatory cm10 19:40 Acuity: DELISA 3 cm10 Triage Assessment: 19:42 General: Appears in no apparent distress. comfortable, Behavior is calm, cooperative. cm10 Pain: Complains of pain in head and abdomen. Neuro: No deficits noted. Level of Consciousness is awake, alert, obeys commands, Oriented to person, place, time, situation, Appropriate for age. Respiratory: No deficits noted. Airway is patent Respiratory effort is even, unlabored, Respiratory pattern is regular, symmetrical. 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 - Infectious Disease History:: Denies. - Social history:: Smoking status: Patient denies any tobacco usage or history of. Screenin:02 [facility] ED Fall Risk Assessment (Adult) History of falling in the last 3 months, kb3 including since admission No falls in past 3 months (0 pts) Confusion or Disorientation No (0 pts) Intoxicated or Sedated No (0 pts) Impaired Gait No (0 pts) Mobility Assist Device Used No (0 pt) Altered Elimination No (0 pt) Score/Fall Risk Level 0 - 2 = Low Risk Oriented to surroundings. Abuse screen: Denies threats or abuse. Denies injuries from another. Nutritional screening: No deficits noted. Tuberculosis screening: No symptoms or risk factors identified. Assessment: 22:02 General: Appears in no apparent distress. Behavior is calm, cooperative. Pain: Denies kb3 pain. GI: Patient currently denies nausea, Pain and nausea resolved. Vital Signs: 19:40 BP 138 / 99; Pulse 88; Resp 18; Temp 98.1; Pulse Ox 100% ; Weight 127.01 kg; Height 5 cm10 ft. 3 in. ; Pain 10/10; 22:02 BP 131 / 77; Pulse 81; Resp 18; Temp 98.3; Pulse Ox 100% ; kb3 19:40 Body Mass Index 49.60 (127.01 kg, 160.02 cm) cm10 19:40 Pain Scale: Adult cm10 ED Course: 18:55 Patient arrived in ED. im 19:35 Rox Roblero PA-C is PHCP. sb4 19:35 Bernard Wilson MD is Attending Physician. sb4 19:41 Triage completed. cm10 19:42 Arm band placed on Patient placed in waiting room. cm10 20:04 Flu Sent. cm10 20:04 SARS RAPID Sent. cm10 20:04 Strep Sent. cm10 20:14 Test, Urine Sent. mb9 22:02 Patient has correct armband on for positive identification. Provided Education on: kb3 follow up, medications, increased oral fluids. 22:02 No provider procedures requiring assistance completed. Patient did not have IV access kb3 during this emergency room visit. Administered Medications: 20:04 Drug: Ondansetron Oral Disintegrating Tablet Oral Disintegrating Tablet 4 mg PO once cm10 Route: PO; 22:21 Follow up: Response: No adverse reaction; Nausea is decreased kb3 20:04 Drug: Ketorolac IM 30 mg IM once Route: IM; Site: left gluteus; cm10 22:21 Follow up: Response: No adverse reaction; Pain is decreased kb3 Medication: 22:02 VIS not applicable for this client. kb3 Outcome: 21:33 Discharge ordered by . sb4 22:02 Discharged to home ambulatory, with family, kb3 22:02 Condition: stable 22:02 Discharge instructions given to patient, family, Instructed on discharge instructions, follow up and referral plans. medication usage, Demonstrated understanding of instructions, follow-up care, medications, 22:11 Patient left the ED. kb3 Signatures: Shanice Martino, RN RN kb3 Rox Roblero PA-C PAHermesC sb4 Marybeth Hollis RN RN mb9 Nahomy Menon Clarissa RN RN cm10
[2024-03-04 22:45] VITALS: BP 131/77; TEMP 98.3; O2SAT 100
== END 2024-03-04 22:11 | disposition home or self-care (01) ==
LOC: ER 18:51
DX: B34.9 Viral infection, unspecified (principal); Z11.52 Encounter for screening for COVID-19
CPT/HCPCS: 87070; 36415; 81025; 87081; 87804 ×2; 96372; 99284; 87811; Q0162